=== PATIENT | female | born 1955 | race Caucasian/White ===

== ENCOUNTER 2016-05-25 15:29 | Emergency (ER) | payer MEDICARE, MEDICAID ==
--- NOTE | 2016-05-25 16:14 | UC ---
Back Pain HPI - HPI Summary HPI Summary: Lumbar back pain started 2 days ago; better with position and rest, worse with movement. Yesterday had trouble passing urine; felt like she had to go but couldn't until the evening, when she started passing small amounts of urine. Had seizure today and in the past seizures have been provoked by UTIs. No fever , flank pain, or vomiting. At worst back pain is a 7 while moving, but only 2-3 at rest. No muscle weakness or radiating pain. - History of Current Complaint Chief Complaint: UCGU Stated Complaint: LOW BACK PAIN Time Seen by Provider: 05/25/16 15:47 Hx Obtained From: Patient ?: No Onset/Duration: Gradual Onset, Lasting Days Timing: Constant Severity Initially: Moderate Severity Currently: Moderate Back Pain: Is Discrete @ Character: Dull, Aching Aggravating: Movement, Walking Alleviating: Rest, Position Associated Signs And Symptoms: Positive: Bladder Incontinence - urinary retention yesterday. Negative: Swelling, Redness, Weakness, Numbness, Tingling , Bowel Incontinence - Allergies/Home Medications Allergies/Adverse Reactions: Allergies Allergy/AdvReac Type Severity Reaction Status Date / Time No Known Allergies Allergy Verified 05/25/16 15:57 Home Medications: Home Medications ALPRAZolam TAB* [Xanax TAB*] 0.5 mg PO TID PRN 05/25/16 [History Confirmed 05/25] Acetaminophen [Extra Strength Acetaminop] 1,000 mg PO Q4H PRN 05/25/16 [History Confirmed 05/25/16] Aspirin [Aspirin Adult Low Dose] 81 mg PO BEDTIME 05/25/16 [History Confirmed ] Cyanocobalamin TAB* [Vitamin B12 TAB*] 500 mcg PO DAILY 05/25/16 [History Confirmed 05/25/16] Fluticasone HFA 220 mcg(NF) [Flovent Hfa 220 Mcg(NF)] 1 puff INH BID 05/25/16 [ History Confirmed 05/25/16] Furosemide TAB* [Lasix TAB*] 40 mg PO DAILY 05/25/16 [History Confirmed 05/25/16 ] Loratadine [Loratadine Allergy Relief] 10 mg PO DAILY 05/25/16 [History Confirmed 05/25/16] Losartan Potassium [Cozaar] 50 mg PO DAILY 05/25/16 [History Confirmed 05/25/16] Meloxicam [Mobic] 15 mg PO DAILY 05/25/16 [History Confirmed 05/25/16] OXcarbazepine TAB(*) [Trileptal TAB(*)] 300 mg PO BID 05/25/16 [History Confirmed 05/25/16] Pregabalin CAP(*) [Lyrica CAP(*)] 200 mg PO BID 05/25/16 [History Confirmed ] Propylene Glycol (Ophth) [Systane Balance Restorati] 0.6 % OP DAILY 05/25/16 [ History Confirmed 05/25/16] Risperidone [Risperdal] 0.5 mg PO BID 05/25/16 [History Confirmed 05/25/16] Saline NASAL SPRAY 0.65%* [Sodium Chloride 0.65% Nasal Enterprise*] 1 spray BOTH NARES Q4H PRN 05/25/16 [History Confirmed 05/25/16] clonazePAM TAB(*) [Klonopin TAB(*)] 0.5 mg PO BEDTIME PRN 05/25/16 [History Confirmed 05/25/16] PMH/Surg Hx/FS Hx/Imm Hx Cardiovascular History Of: Reports: Cardiac Disorders, Hypertension - Surgical History Surgical History: Yes Surgery Procedure, Year, and Place: VAGAL NERVE STIMULATOR--FOR EPILEPSY - Family History Known Family History: Positive: Hypertension - Social History Lives: Alone Alcohol Use: Rare Substance Use Type: None Smoking Status (MU): Never Smoked Tobacco Review of Systems Constitutional: Negative Skin: Negative Eyes: Negative ENT: Negative Respiratory: Negative Cardiovascular: Negative Gastrointestinal: Negative Genitourinary: Other - retention Motor: Negative Neurovascular: Negative Musculoskeletal: Arthralgia, Myalgia Neurological: Negative Psychological: Negative All Other Systems Reviewed And Are Negative: Yes Physical Exam Triage Information Reviewed: Yes Appearance: Well-Appearing, No Pain Distress, Obese Vital Signs: Initial Vital Signs Pulse 96 05/25/16 15:43 Resp 16 05/25/16 15:43 Pulse Ox 97 05/25/16 15:43 Vital Signs Reviewed: Yes Eyes: Positive: Conjunctiva Clear ENT Exam: Normal ENT: Positive: Normal ENT inspection, Hearing grossly normal, Pharynx normal, TMs normal Dental Exam: Normal Neck exam: Normal Neck: Positive: Supple, Nontender, No Lymphadenopathy Respiratory Exam: Normal Respiratory: Positive: Chest non-tender, Lungs clear, Normal breath sounds, No respiratory distress, No accessory muscle use Cardiovascular Exam: Normal Cardiovascular: Positive: RRR, No Murmur Abdomen Description: Positive: Nontender. Negative: CVA Tenderness (R), CVA Tenderness (L) Musculoskeletal Exam: Other - no tenderness over L-spine Musculoskeletal: Positive: Strength Intact, ROM Intact Neurological: Positive: Alert Psychological Exam: Normal Skin Exam: Normal Back Pain Course/Dx - Differential Dx/Diagnosis Provider Diagnoses: Low back pain. glycosuria. mild urinary retention Discharge - Discharge Plan Condition: Stable Disposition: HOME Prescriptions: Nitrofurantoin Monohyd Macro [Macrobid] 100 mg PO BID #10 cap Patient Education Materials: Urinary Tract Infection in Women (ED), Acute Urinary Retention in Women (ED) Referrals: Juan A RAMÍREZ,Giovany Enamorado [Primary Care Provider] - Additional Instructions: I am treating you for a UTI until we have the culture results. If you develop any new fever, trouble walking, or bowel/bladder changes (incontinence or inability to go), please go to the emergency department right away. I want you to continue to walk around and stay as active as possible. Use your meloxicam and tylenol as needed for discomfort; sometimes warmth can also help calm tight muscles. See your primary care provider next week.
[2016-05-25 16:20] VITALS: BP 118/66
== END 2016-05-25 16:39 | disposition home or self-care (01) ==
LOC: UCCORT 15:29
DX: M54.5 Low back pain (principal); R81 Glycosuria; R33.9 Retention of urine, unspecified; I10 Essential (primary) hypertension; E66.9 Obesity, unspecified; Z79.82 Long term (current) use of aspirin
CPT/HCPCS: 87086; 99202; G0463

== ENCOUNTER 2016-10-25 12:00 | Inpatient (IN) | payer MEDICARE, MEDICAID ==
[2016-10-25] MEDS ORDERED: LORazepam INJ* 2 MG/ML 1 ML VIAL IV PRN (16:21)
[2016-10-25] MEDS ORDERED: diPHENhydraMINE PO* 25 MG PO PRN (16:21)
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
[2016-10-25] MEDS ORDERED: Saline NASAL SPRAY 0.65%* BTL BOTH NARES PRN (18:57)
[2016-10-25] MEDS ORDERED: Acetaminophen TAB* 325 MG PO PRN (18:57)
[2016-10-25] MEDS: clonazePAM TAB(*) 0.5 MG PO SCH (20:35)
[2016-10-25] MEDS: Aspirin EC Low Dose* 81 MG TAB.EC PO SCH (20:35)
[2016-10-25] MEDS: OXcarbazepine TAB(*) 300 MG PO SCH (20:36)
[2016-10-25] MEDS ORDERED: Pregabalin CAP(*) 50 MG PO SCH (21:00)
[2016-10-25] MEDS: GLYCERIN BOTH EYES SCH (22:04)
[2016-10-25] MEDS: CARBOXYMETHYLCELLULOSE BOTH EYES SCH (22:04)
[2016-10-26] MEDS ORDERED: AZELASTINE HCL BOTH NARES SCH (09:00)
[2016-10-26] MEDS ORDERED: FISH OIL 1000 MG PO SCH (09:00)
[2016-10-26] MEDS ORDERED: Meloxicam(NF) 15 MG TAB PO SCH (09:00)
[2016-10-26] MEDS: CARBOXYMETHYLCELLULOSE BOTH EYES SCH (09:16)
[2016-10-26] MEDS: GLYCERIN BOTH EYES SCH (09:16)
[2016-10-26] MEDS: Cetirizine* 10 MG TAB PO SCH (09:17)
[2016-10-26] MEDS: Cholecalciferol TAB* 1000 UNITS PO SCH (09:18)
[2016-10-26] MEDS: Citalopram TAB* 20 MG PO SCH (09:20)
[2016-10-26] MEDS: clonazePAM TAB(*) 0.5 MG PO SCH ×3 (09:20→21:10)
[2016-10-26] MEDS: Cyanocobalamin TAB* 500 MCG PO SCH (09:21)
[2016-10-26] MEDS: Diltiazem CD CAP* 180 MG PO SCH (09:22)
[2016-10-26] MEDS: OXcarbazepine TAB(*) 300 MG PO SCH ×3 (09:23→21:09)
[2016-10-26] MEDS: Furosemide TAB* 40 MG PO SCH (09:23)
[2016-10-26] MEDS: Pregabalin CAP(*) 100 MG PO SCH ×2 (09:25→21:09)
[2016-10-26] MEDS: Losartan TAB* 25 MG PO SCH (09:25)
[2016-10-26] MEDS: Fluticasone NASAL SPRAY 50MCG* 16 gm SPRAY BTL BOTH NARES SCH (09:26)
--- NOTE | 2016-10-26 10:32 | EEG ---
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 She describes various intensities of auras/seizures, which always begin with an indescribable feeling that the seizure is coming. When these get stronger, she gets a fearful feeling that she cannot be alone and becomes "unmotivated", where she can't move or talk. She has had several admissions for long-term monitoring in [place] over the years. Initially, electroclinical seizures were demonstrated but over time she has continued to have clinical events without electrographic correlate ( most recently in 2013). She is now experiencing a few days per month of intense fear/anxiety which makes her want to avoid being alone and she has to stay with a family member during this time. She is doubling up on her clonazepam during these days from 0.5mg TID to 1mg TID, but still needs to stay with family. Long- term monitoring is being initiated to try and determine whether these episodes are epileptic in nature, and to try and reduce the amount of sedating medications she is taking. Introduction: INTRODUCTION: The EEG was monitored from 21 scalp electrodes. Nineteen electrodes consisted of the standard parasagittal, temporal and midline leads of the International 10 -20 system. In addition, special electrodes FT9 and FT10 were placed. EEG data were recorded on an [employer] system with simultaneous MPEG-4 digital video recording of patient behavior. EEG recording was in a monopolar montage with all electrodes referenced to FCz. Significant behavioral events were signaled by an event button, or putative electrical seizure events were detected by a computer program. All EEG data were reviewed in their entirety on a monitor with reconstruction of montages and adjustments of sensitivity and filtering. Simultaneous patient behavior was viewed on an adjacent monitor and correlated with the EEG. - Medications Active Medications: Acetaminophen (Tylenol Tab*) 975 mg PO Q4H PRN PRN Reason: DISCOMFORT Aspirin (Aspirin Ec Low Dose*) 81 mg PO BEDTIME ON LICENSE OF [facility] Last Admin: 10/25/16 20:35 Dose: 81 mg Cetirizine HCl (Zyrtec*) 10 mg PO DAILY ON LICENSE OF [facility] Last Admin: 10/26/16 09:17 Dose: 10 mg Cholecalciferol (Vitamin D Tab*) 2,000 units PO DAILY ON LICENSE OF [facility] Last Admin: 10/26/16 09:18 Dose: 2,000 units Citalopram Hydrobromide (Celexa Tab*) 20 mg PO DAILY ON LICENSE OF [facility] Last Admin: 10/26/16 09:20 Dose: 20 mg Clonazepam (Klonopin Tab(*)) 0.5 mg PO TID ON LICENSE OF [facility] Last Admin: 10/26/16 09:20 Dose: 0.5 mg Cyanocobalamin (Vitamin B12 Tab*) 500 mcg PO DAILY ON LICENSE OF [facility] Last Admin: 10/26/16 09:21 Dose: 500 mcg Diltiazem HCl (Cardizem Cd Cap*) 180 mg PO DAILY ON LICENSE OF [facility] Last Admin: 10/26/16 09:22 Dose: 180 mg Diphenhydramine HCl (Benadryl Po*) 25 mg PO Q6H PRN PRN Reason: ITCHING Enoxaparin Sodium (Lovenox(*)) 40 mg SUBCUT Q24H ON LICENSE OF [facility] Fluticasone Propionate (Flonase Nasal [place] 50mcg*) 1 spray BOTH NARES DAILY ON LICENSE OF [facility] Last Admin: 10/26/16 09:26 Dose: 1 spray Furosemide (Lasix Tab*) 40 mg PO DAILY ON LICENSE OF [facility] Last Admin: 10/26/16 09:23 Dose: 40 mg Lorazepam (Ativan Inj*) 1 mg IV Q8H PRN PRN Reason: Generalized Tonic Clonic Seizu Losartan Potassium (Cozaar Tab*) 50 mg PO DAILY ON LICENSE OF [facility] Last Admin: 10/26/16 09:25 Dose: 50 mg Meloxicam (Mobic(Nf)) 15 mg PO DAILY ON LICENSE OF [facility] Last Admin: 10/26/16 09:24 Dose: Not Given Pto Nf Med* ( Azelastine Hcl [ Azelastine Hcl] 2 [place]) 2 spray BOTH NARES DAILY ON LICENSE OF [facility] Last Admin: 10/26/16 09:17 Dose: 2 spray Pto Nf Med ( Carboxymethylcellulo se-Glyceri [Refresh Optive 0.5-0.9 %] 1 Drop) 1 drop BOTH EYES BID ON LICENSE OF [facility] Last Admin: 10/26/16 09:16 Dose: 1 drop Non-Formulary Medication (Fish Oil) 1,000 mg PO DAILY ON LICENSE OF [facility] Oxcarbazepine (Trileptal Tab(*)) 300 mg PO BID ON LICENSE OF [facility] Last Admin: 10/26/16 09:23 Dose: 300 mg Oxcarbazepine (Trileptal Tab(*)) 150 mg PO 1500 [facility] Pregabalin (Lyrica Cap(*)) 100 mg PO BID ON LICENSE OF [facility] Last Admin: 10/26/16 09:25 Dose: 100 mg Risperidone (Risperdal) 0.5 mg PO BID ON LICENSE OF [facility] Last Admin: 10/26/16 09:24 Dose: 0.5 mg Sodium Chloride (Sodium Chloride 0.65% Nasal [place]*) 1 spray BOTH NARES Q4H PRN PRN Reason: DISCOMFORT - Description Background: The waking background showed appropriate organization with clearly defined anterior-posterior voltage and frequency gradients. There was a defined posterior dominant rhythm of 8 Hertz, which was symmetrical and showed normal reactivity. Anteriorly, there was the expected pattern of lower voltage and more irregular theta and beta rhythms. There is occasional, polymorphic, delta-range slowing in the left parietal region, affecting P3 and C3 primarily. This is noted in the waking background and lasts less than 0.5 seconds. By day #3 of recording, there were periods of higher voltage, 1 to 2 Hz intermittent rhythmic activity in the frontal region ( FIRDA) which lasted 2 to 3 seconds per epoch. There were also periods of more focal slowing in the bilateral temporal regions, which was sometimes noted independently and was most likely to occur during drowsiness. On day #4 of recording, she had more frequent periods of delta slowing which were sometimes seen diffusely. The sleep background was appropriately organized with well-developed spindles and vertex waves indicative of stage 2 sleep. These sleep transients showed appropriate morphology and were bilaterally synchronous and symmetrical. Development of diffuse delta range frequencies with dropout of stage 2 architecture accompanied transition to slow wave sleep, and a lower voltage mixed frequency pattern associated with eye movements was consistent with REM sleep. Intericatal Epileptiform Activity: #01 6/16: When the patient falls asleep, occasional epileptiform discharges are seen in the left temporal region. These are generally of moderate voltage and spike/slow-wave morphology and are maximally expressed at F7 and T1/FT9, with a field to T3/T7. At times, these discharges are poorly formed and have more of a sharp wave morphology. #02 6/: Discharges during sleep as described above continue to be seen. #03 10/27: A single sharp waveform was seen in the right temporal region during sleep but this occurred in the context of probable wickets in the left temporal region and was most likely a benign sleep transient. #04 10/28: Epileptiform discharges in the left temporal region continue to be seen during drowsiness and sleep. Ictal Activity: #01 10/25: The patient experienced 3 events during this portion of the monitoring session. All were "hardly noticeable" seizures/auras and were over within a second or two, before staff could be at the bedside. She was fully alert, able to follow commands and remember a recall phrase. She had the typical indescribable feeling. There was no EEG correlate to these events. There were no seizures noted. #02 10/26: No typical events. No seizures. #03 10/27: No typical events. No seizures. Photic induction was performed and was negative. There was no abnormal EEG response to photic stimulation #04 10/28: The patient had a typical event at 03:53 on 10/29, lasting 5 to 10 seconds, of a feeling of not wanting to be alone. She indicated to the nurse this was a "bad seizure". She was able to follow commands and remember a recall phrase. There was no apparent post-ictal confusion. There was no EEG correlate to this event. No ictal patterns noted.
[2016-10-26] MEDS ORDERED: CMC:OMEGA-3 FATTY ACIDS (NF) 1,000 MG CAP PO SCH (12:00)
[2016-10-26] MEDS ORDERED: CMC:Meloxicam(NF) 7.5 MG TAB PO SCH (12:00)
--- NOTE | 2016-10-26 12:27 | PN ---
Epilepsy Service Progress Note - Subjective DOS 10/26/16 Dawna had 3 "hardly noticeable" auras yesterday, with the last being around 6: 40pm. She has not had any further events. This morning, she received a lower dose of Lyrica (100mg). She has no other concerns - Medications Active Medications: Acetaminophen (Tylenol Tab*) 975 mg PO Q4H PRN PRN Reason: DISCOMFORT Aspirin (Aspirin Ec Low Dose*) 81 mg PO BEDTIME [facility] Last Admin: 10/25/16 20:35 Dose: 81 mg Cetirizine HCl (Zyrtec*) 10 mg PO DAILY [facility] Last Admin: 10/26/16 09:17 Dose: 10 mg Cholecalciferol (Vitamin D Tab*) 2,000 units PO DAILY [facility] Last Admin: 10/26/16 09:18 Dose: 2,000 units Citalopram Hydrobromide (Celexa Tab*) 20 mg PO DAILY [facility] Last Admin: 10/26/16 09:20 Dose: 20 mg Clonazepam (Klonopin Tab(*)) 0.5 mg PO TID [facility] Last Admin: 10/26/16 09:20 Dose: 0.5 mg Cyanocobalamin (Vitamin B12 Tab*) 500 mcg PO DAILY [facility] Last Admin: 10/26/16 09:21 Dose: 500 mcg Diltiazem HCl (Cardizem Cd Cap*) 180 mg PO DAILY [facility] Last Admin: 10/26/16 09:22 Dose: 180 mg Diphenhydramine HCl (Benadryl Po*) 25 mg PO Q6H PRN PRN Reason: ITCHING Enoxaparin Sodium (Lovenox(*)) 40 mg SUBCUT Q24H [facility] Fish Oil (Fish Oil (Nf)) 1,000 mg PO DAILY [facility] Fluticasone Propionate (Flonase Nasal [place] 50mcg*) 1 spray BOTH NARES DAILY [facility] Last Admin: 10/26/16 09:26 Dose: 1 spray Furosemide (Lasix Tab*) 40 mg PO DAILY [facility] Last Admin: 10/26/16 09:23 Dose: 40 mg Lorazepam (Ativan Inj*) 1 mg IV Q8H PRN PRN Reason: Generalized Tonic Clonic Seizu Losartan Potassium (Cozaar Tab*) 50 mg PO DAILY [facility] Last Admin: 10/26/16 09:25 Dose: 50 mg Meloxicam (Mobic(Nf)) 15 mg PO DAILY [facility] Pto Nf Med* ( Azelastine Hcl [ Azelastine Hcl] 2 [place]) 2 spray BOTH NARES DAILY [facility] Last Admin: 10/26/16 09:17 Dose: 2 spray Pto Nf Med ( Carboxymethylcellulo se-Glyceri [Refresh Optive 0.5-0.9 %] 1 Drop) 1 drop BOTH EYES BID [facility] Last Admin: 10/26/16 09:16 Dose: 1 drop Oxcarbazepine (Trileptal Tab(*)) 300 mg PO BID [facility] Last Admin: 10/26/16 09:23 Dose: 300 mg Oxcarbazepine (Trileptal Tab(*)) 150 mg PO 1500 [facility] Pregabalin (Lyrica Cap(*)) 100 mg PO BID [facility] Last Admin: 10/26/16 09:25 Dose: 100 mg Risperidone (Risperdal) 0.5 mg PO BID [facility] Last Admin: 10/26/16 09:24 Dose: 0.5 mg Sodium Chloride (Sodium Chloride 0.65% Nasal [place]*) 1 spray BOTH NARES Q4H PRN PRN Reason: DISCOMFORT EMU Diagnostics - Diagnostic Most Recent Vital Signs: Vital Signs: Temp Pulse Resp BP Pulse Ox 98.5 F 84 16 137/70 95 10/25/16 21:47 10/25/16 21:47 10/26/16 08:32 10/25/16 21:47 10/25/16 21:47 Interim video-EEG long-term monitoring report: #01 10/25: PDR 8, normal sleep background. During sleep, there are epileptiform discharges in the left temporal region. She had 3 events of a light undescribable feeling which had no EEG correlate. EMU Exam - Exam Physical/Neurological Exam: Physical Exam: General: Well appearing in no acute distress. Morbidly obese Eyes: normal conjunctiva, pupils were equal and reactive. MSK: no extremity deformities Derm: no rashes or lesions Neurological Exam: Mental Status: Awake and alert. Oriented to person, place, and time. Fluent. Comprehension intact. Affect appropriate. Cranial Nerves: Versions were full and without nystagmus. Facial musculature and sensation were symmetric except for slight left ptosis. Hearing grossly intact to voice. Palate was upgoing bilaterally. Tongue was midline. Shoulder shrug was symmetric. Motor: Bul, and strength were normal throughout. Pronator drift was absent. There were no abnormal movements. Sensory: Sensation to light touch intact. Romberg was deferred. Gait: Normal base, steady when ambulating from BR to bed. EMU Progress Note Assessment/P - Assessment/Plan Assessment: 61 year old woman with localization-related epilepsy secondary to left mesial temporal sclerosis, treated with pregabalin, oxcarbazepine and clonazepam, presenting for characterization of episodes of intense fear where she feels she cannot be alone. She has been temporarily doubling her clonazepam during these episodes. Though her seizures have not changed in their description over the years, she previously had an electrographic correlate to episodes where she could not speak, whereas with more recent monitoring in [place], she did not. In addition, she is tired frequently. The current monitoring session is undertaken in order to characterize events and attempt to get the patient on less medication, with hopefully good seizure control and less sleepiness. Three typical "hardly noticeable" events recorded thus far, without EEG correlate. No stronger events recorded yet. I told Dawna she does not need to press the button for hardly noticeable events any longer, only stronger ones. Plan: * Continue extermination supervisor video EEG monitoring to capture typical episodes * Seizure precautions * lorazepam 1mg IV prn GTC * continue oxcarbazepine 300/150/300mg, clonazepam 0.5mg TID and Lyrica 100mg BID. Tomorrow, will likely decrease Lyrica to 75mg BID. * Lovenox daily for DVT ppx * continue other home meds * will consider holding allergy medications/nasal sprays on Friday if no stronger events captured * will also consider photic stimulation on Friday if no stronger events captured before then.
[2016-10-26] MEDS: PTO:OMEGA-3 FATTY ACIDS (NF) 1,000 MG CAP PO SCH (15:01)
[2016-10-26] MEDS: Meloxicam(NF) 15 MG TAB PO SCH (15:01)
[2016-10-26] MEDS: Enoxaparin(*) 40 MG/0.4 ML SYR SUBCUT SCH ×2 (15:06→21:35)
[2016-10-26] MEDS: Aspirin EC Low Dose* 81 MG TAB.EC PO SCH (21:09)
[2016-10-26] MEDS: CARBOXYMETHYLCELLULOSE GLYCERI BOTH EYES SCH (21:12)
[2016-10-27] MEDS: Cetirizine* 10 MG TAB PO SCH (08:55)
[2016-10-27] MEDS: CARBOXYMETHYLCELLULOSE GLYCERI BOTH EYES SCH ×2 (08:55→21:28)
[2016-10-27] MEDS: Cholecalciferol TAB* 1000 UNITS PO SCH (08:56)
[2016-10-27] MEDS: Citalopram TAB* 20 MG PO SCH (08:56)
[2016-10-27] MEDS: clonazePAM TAB(*) 0.5 MG PO SCH ×3 (08:56→21:28)
[2016-10-27] MEDS: Cyanocobalamin TAB* 500 MCG PO SCH (08:57)
[2016-10-27] MEDS: Furosemide TAB* 40 MG PO SCH (08:58)
[2016-10-27] MEDS: Fluticasone NASAL SPRAY 50MCG* 16 gm SPRAY BTL BOTH NARES SCH (08:58)
[2016-10-27] MEDS: Losartan TAB* 25 MG PO SCH (08:58)
[2016-10-27] MEDS: Meloxicam(NF) 15 MG TAB PO SCH (08:59)
[2016-10-27] MEDS: PTO:OMEGA-3 FATTY ACIDS (NF) 1,000 MG CAP PO SCH (08:59)
[2016-10-27] MEDS ORDERED: AZELASTINE HCL BOTH NARES SCH (09:00)
[2016-10-27] MEDS: Pregabalin CAP(*) 100 MG PO SCH (09:01)
[2016-10-27] MEDS: OXcarbazepine TAB(*) 300 MG PO SCH ×3 (09:01→21:28)
[2016-10-27] MEDS: Diltiazem CD CAP* 180 MG PO SCH (09:06)
--- NOTE | 2016-10-27 10:24 | PN ---
Epilepsy Service Progress Note - Subjective DOS 10/27/16 Dawna had one hardly noticeable aura yesterday, nothing stronger. She is doing well without complaints. She would like to stop her nasal sprays now as she finds her sinuses getting backed up bring on stronger events. - Medications Active Medications: Acetaminophen (Tylenol Tab*) 975 mg PO Q4H PRN PRN Reason: DISCOMFORT Aspirin (Aspirin Ec Low Dose*) 81 mg PO BEDTIME [facility] Last Admin: 10/26/16 21:09 Dose: 81 mg Azelastine HCl (Astepro 0.15% Nasal (Nf)) 2 spray BOTH NARES DAILY [facility] Last Admin: 10/27/16 08:54 Dose: 2 spray Carboxymethylcellulose Sodium (Celluvisc 1% Opth*) 1 drop BOTH EYES BID [facility] Last Admin: 10/27/16 08:55 Dose: 1 everardo Cetirizine HCl (Zyrtec*) 10 mg PO DAILY [facility] Last Admin: 10/27/16 08:55 Dose: 10 mg Cholecalciferol (Vitamin D Tab*) 2,000 units PO DAILY [facility] Last Admin: 10/27/16 08:56 Dose: 2,000 units Citalopram Hydrobromide (Celexa Tab*) 20 mg PO DAILY [facility] Last Admin: 10/27/16 08:56 Dose: 20 mg Clonazepam (Klonopin Tab(*)) 0.5 mg PO TID [facility] Last Admin: 10/27/16 08:56 Dose: 0.5 mg Cyanocobalamin (Vitamin B12 Tab*) 500 mcg PO DAILY [facility] Last Admin: 10/27/16 08:57 Dose: 500 mcg Diltiazem HCl (Cardizem Cd Cap*) 180 mg PO DAILY [facility] Last Admin: 10/27/16 09:06 Dose: 180 mg Diphenhydramine HCl (Benadryl Po*) 25 mg PO Q6H PRN PRN Reason: ITCHING Enoxaparin Sodium (Lovenox(*)) 40 mg SUBCUT Q24H [facility] Last Admin: 10/26/16 21:35 Dose: Not Given Fish Oil (Fish Oil (Nf)) 1,000 mg PO DAILY [facility] Last Admin: 10/27/16 08:59 Dose: 1,000 mg Fluticasone Propionate (Flonase Nasal [place] 50mcg*) 1 spray BOTH NARES DAILY [facility] Last Admin: 10/27/16 08:58 Dose: 1 spray Furosemide (Lasix Tab*) 40 mg PO DAILY [facility] Last Admin: 10/27/16 08:58 Dose: 40 mg Lorazepam (Ativan Inj*) 1 mg IV Q8H PRN PRN Reason: Generalized Tonic Clonic Seizu Losartan Potassium (Cozaar Tab*) 50 mg PO DAILY [facility] Last Admin: 10/27/16 08:58 Dose: 50 mg Meloxicam (Mobic(Nf)) 15 mg PO DAILY [facility] Last Admin: 10/27/16 08:59 Dose: 15 mg Oxcarbazepine (Trileptal Tab(*)) 300 mg PO BID [facility] Last Admin: 10/27/16 09:01 Dose: 300 mg Oxcarbazepine (Trileptal Tab(*)) 150 mg PO 1500 [facility] Last Admin: 10/26/16 15:02 Dose: 150 mg Pregabalin (Lyrica Cap(*)) 100 mg PO BID [facility] Last Admin: 10/27/16 09:01 Dose: 100 mg Risperidone (Risperdal) 0.5 mg PO BID [facility] Last Admin: 10/27/16 09:01 Dose: 0.5 mg Sodium Chloride (Sodium Chloride 0.65% Nasal [place]*) 1 spray BOTH NARES Q4H PRN PRN Reason: DISCOMFORT EMU Diagnostics - Diagnostic Most Recent Vital Signs: Vital Signs: Temp Pulse Resp BP Pulse Ox 98.0 F 77 18 128/72 95 10/27/16 07:45 10/27/16 07:45 10/27/16 07:45 10/27/16 07:45 10/27/16 07:45 Interim video-EEG long-term monitoring report: #01 10/25: PDR 8, normal sleep background. During sleep, there are epileptiform discharges in the left temporal region. She had 3 events of a light undescribable feeling which had no EEG correlate. #02 10/26: background as above with occasional discharges in the left temporal region during sleep. No new patient events, no seizures. EMU Exam - Exam Physical/Neurological Exam: Physical Exam: General: Well appearing in no acute distress. Morbidly obese Eyes: normal conjunctiva, pupils were equal and reactive. MSK: no extremity deformities Derm: no rashes or lesions Neurological Exam: Mental Status: Awake and alert. Oriented to person, place, and time. Fluent. Comprehension intact. Affect appropriate. Cranial Nerves: Versions were full and without nystagmus. Facial musculature and sensation were symmetric except for slight left ptosis. Hearing grossly intact to voice. Palate was upgoing bilaterally. Tongue was midline. Shoulder shrug was symmetric. Motor: Bulk and strength were normal throughout. Pronator drift was absent. There is a mild postural tremor of the left hand. Sensory: Sensation to light touch intact. Romberg was deferred. Coordination: FTN with end-target tremor on the left but no ataxia. Gait: deferred EMU Progress Note Assessment/P - Assessment/Plan Assessment: 61 year old woman with localization-related epilepsy secondary to left mesial temporal sclerosis, treated with pregabalin, oxcarbazepine and clonazepam, presenting for characterization of episodes of intense fear where she feels she cannot be alone. She has been temporarily doubling her clonazepam during these episodes. Though her seizures have not changed in their description over the years, she previously had an electrographic correlate to episodes where she could not speak, whereas with more recent monitoring in [place], she did not. In addition, she is tired frequently. The current monitoring session is undertaken in order to characterize events and attempt to get the patient on less medication, with hopefully good seizure control and less sleepiness. Three typical "hardly noticeable" events recorded thus far, without EEG correlate. No stronger events recorded yet. I told Dawna she does not need to press the button for hardly noticeable events any longer, only stronger ones. Plan: * Continue halfway video EEG monitoring to capture typical episodes * Seizure precautions * lorazepam 1mg IV prn GTC * continue oxcarbazepine 300/150/300mg, clonazepam 0.5mg TID. Decrease Lyrica to 75mg BID. * Lovenox daily for DVT ppx * Stop Flonase and azelastine. Continue loratadine. * continue other home meds * will consider photic stimulation on Friday if no stronger events captured before then.
[2016-10-27] MEDS: Enoxaparin(*) 40 MG/0.4 ML SYR SUBCUT SCH (15:42)
[2016-10-27] MEDS: Pregabalin CAP(*) 25 MG PO SCH (21:27)
[2016-10-27] MEDS: Aspirin EC Low Dose* 81 MG TAB.EC PO SCH (21:28)
[2016-10-27] MEDS: risperiDONE TAB* 1 MG PO SCH (21:35)
[2016-10-28] MEDS: CARBOXYMETHYLCELLULOSE GLYCERI BOTH EYES SCH ×2 (09:21→20:47)
[2016-10-28] MEDS: PTO:OMEGA-3 FATTY ACIDS (NF) 1,000 MG CAP PO SCH (09:22)
[2016-10-28] MEDS: Meloxicam(NF) 15 MG TAB PO SCH (09:23)
[2016-10-28] MEDS: Cetirizine* 10 MG TAB PO SCH (09:23)
[2016-10-28] MEDS: Citalopram TAB* 20 MG PO SCH (09:24)
[2016-10-28] MEDS: clonazePAM TAB(*) 0.5 MG PO SCH ×3 (09:24→20:53)
[2016-10-28] MEDS: Furosemide TAB* 40 MG PO SCH (09:24)
[2016-10-28] MEDS: Diltiazem CD CAP* 180 MG PO SCH (09:24)
[2016-10-28] MEDS: Cyanocobalamin TAB* 500 MCG PO SCH (09:25)
[2016-10-28] MEDS: Cholecalciferol TAB* 1000 UNITS PO SCH (09:26)
[2016-10-28] MEDS: Pregabalin CAP(*) 25 MG PO SCH ×2 (09:27→20:50)
[2016-10-28] MEDS: Losartan TAB* 25 MG PO SCH (09:27)
[2016-10-28] MEDS: risperiDONE TAB* 1 MG PO SCH ×2 (09:43→20:49)
[2016-10-28] MEDS: OXcarbazepine TAB(*) 300 MG PO SCH ×3 (09:44→20:50)
--- NOTE | 2016-10-28 11:39 | PN ---
Epilepsy Service Progress Note - Subjective DOS 10/28/16 Dawna has no complaints. She had a bowel movement last night but it was diarrhea. Nursing notified me of weight gain since admission. Pt denies SOB, chest pain. She has LE edema. She typically does not have constipation. No bigger seizures yet. - Medications Active Medications: Acetaminophen (Tylenol Tab*) 975 mg PO Q4H PRN PRN Reason: DISCOMFORT Aspirin (Aspirin Ec Low Dose*) 81 mg PO BEDTIME [facility] Last Admin: 10/27/16 21:28 Dose: 81 mg Carboxymethylcellulose Sodium (Celluvisc 1% Opth*) 1 drop BOTH EYES BID [facility] Last Admin: 10/28/16 09:21 Dose: 1 everardo Cetirizine HCl (Zyrtec*) 10 mg PO DAILY [facility] Last Admin: 10/28/16 09:23 Dose: 10 mg Cholecalciferol (Vitamin D Tab*) 2,000 units PO DAILY [facility] Last Admin: 10/28/16 09:26 Dose: 2,000 units Citalopram Hydrobromide (Celexa Tab*) 20 mg PO DAILY [facility] Last Admin: 10/28/16 09:24 Dose: 20 mg Clonazepam (Klonopin Tab(*)) 0.5 mg PO TID [facility] Last Admin: 10/28/16 09:24 Dose: 0.5 mg Cyanocobalamin (Vitamin B12 Tab*) 500 mcg PO DAILY [facility] Last Admin: 10/28/16 09:25 Dose: 500 mcg Diltiazem HCl (Cardizem Cd Cap*) 180 mg PO DAILY [facility] Last Admin: 10/28/16 09:24 Dose: 180 mg Diphenhydramine HCl (Benadryl Po*) 25 mg PO Q6H PRN PRN Reason: ITCHING Enoxaparin Sodium (Lovenox(*)) 40 mg SUBCUT Q24H [facility] Last Admin: 10/27/16 15:42 Dose: 40 mg Fish Oil (Fish Oil (Nf)) 1,000 mg PO DAILY [facility] Last Admin: 10/28/16 09:22 Dose: 1,000 mg Furosemide (Lasix Tab*) 40 mg PO DAILY [facility] Last Admin: 10/28/16 09:24 Dose: 40 mg Lorazepam (Ativan Inj*) 1 mg IV Q8H PRN PRN Reason: Generalized Tonic Clonic Seizu Losartan Potassium (Cozaar Tab*) 50 mg PO DAILY [facility] Last Admin: 10/28/16 09:27 Dose: 50 mg Meloxicam (Mobic(Nf)) 15 mg PO DAILY [facility] Last Admin: 10/28/16 09:23 Dose: 15 mg Oxcarbazepine (Trileptal Tab(*)) 300 mg PO BID [facility] Last Admin: 10/28/16 09:44 Dose: 300 mg Oxcarbazepine (Trileptal Tab(*)) 150 mg PO 1500 [facility] Last Admin: 10/27/16 15:42 Dose: 150 mg Pregabalin (Lyrica Cap(*)) 75 mg PO BID [facility] Last Admin: 10/28/16 09:27 Dose: 75 mg Risperidone (Risperdal*) 0.5 mg PO BID [facility] Last Admin: 10/28/16 09:43 Dose: 0.5 mg Sodium Chloride (Sodium Chloride 0.65% Nasal [place]*) 1 spray BOTH NARES Q4H PRN PRN Reason: DISCOMFORT EMU Diagnostics - Diagnostic Most Recent Vital Signs: Vital Signs: Temp Pulse Resp BP Pulse Ox 98.2 F 93 18 149/65 96 10/28/16 06:55 10/28/16 06:55 10/28/16 08:00 10/28/16 06:55 10/28/16 06:55 Interim video-EEG long-term monitoring report: #01 /: PDR 8, normal sleep background. During sleep, there are epileptiform discharges in the left temporal region. She had 3 events of a light undescribable feeling which had no EEG correlate. #02 10/26: background as above with occasional discharges in the left temporal region during sleep. No new patient events, no seizures. #03 /: background as above except that one right temporal sharp wave, possible discharge, was seen. No patient events, no seizures. EMU Exam - Exam Physical/Neurological Exam: Physical Exam: General: Well appearing in no acute distress. Morbidly obese Eyes: normal conjunctiva, pupils were equal and reactive. MSK: no extremity deformities Derm: no rashes or lesions Neurological Exam: Mental Status: Awake and alert. Oriented to person, place, and time. Fluent. Comprehension intact. Affect appropriate. Cranial Nerves: Versions were full and without nystagmus. Facial musculature and sensation were symmetric except for slight left ptosis. Hearing grossly intact to voice. Palate was upgoing bilaterally. Tongue was midline. Shoulder shrug was symmetric. Motor: Bulk and strength were normal throughout. Pronator drift was absent. There is a mild postural tremor of the left hand. Sensory: Sensation to light touch intact. Romberg was deferred. Coordination: FTN with end-target tremor on the left but no ataxia. 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 She has been temporarily doubling her clonazepam during these episodes. Though her seizures have not changed in their description over the years, she previously had an electrographic correlate to episodes where she could not speak, whereas with more recent monitoring in [place], she did not. In addition, she is tired frequently. The current monitoring session is undertaken in order to characterize events and attempt to get the patient on less medication, with hopefully good seizure control and less sleepiness. Three typical "hardly noticeable" events recorded thus far, without EEG correlate. No stronger events recorded yet. I told Dawna she does not need to press the button for hardly noticeable events any longer, only stronger ones. Plan: * Continue [facility] video EEG monitoring to capture typical episodes * Seizure precautions * lorazepam 1mg IV prn GTC * continue oxcarbazepine 300/150/300mg, clonazepam 0.5mg TID, Lyrica to 75mg BID. * Lovenox daily for DVT ppx * Hold Flonase and azelastine. Continue loratadine. * continue other home meds * will perform photic stimulation today
[2016-10-28] MEDS: Enoxaparin(*) 40 MG/0.4 ML SYR SUBCUT SCH (15:10)
[2016-10-28] MEDS: Aspirin EC Low Dose* 81 MG TAB.EC PO SCH (20:50)
[2016-10-29] MEDS: CARBOXYMETHYLCELLULOSE GLYCERI BOTH EYES SCH ×2 (09:00→20:54)
[2016-10-29] MEDS: Cholecalciferol TAB* 1000 UNITS PO SCH (09:00)
[2016-10-29] MEDS: Cetirizine* 10 MG TAB PO SCH (09:00)
[2016-10-29] MEDS: Diltiazem CD CAP* 180 MG PO SCH (09:05)
[2016-10-29] MEDS: Cyanocobalamin TAB* 500 MCG PO SCH (09:05)
[2016-10-29] MEDS: clonazePAM TAB(*) 0.5 MG PO SCH ×3 (09:05→20:44)
[2016-10-29] MEDS: Furosemide TAB* 40 MG PO SCH (09:05)
[2016-10-29] MEDS: Citalopram TAB* 20 MG PO SCH (09:05)
[2016-10-29] MEDS: Meloxicam(NF) 15 MG TAB PO SCH (09:10)
[2016-10-29] MEDS: Losartan TAB* 25 MG PO SCH (09:10)
[2016-10-29] MEDS: Pregabalin CAP(*) 25 MG PO SCH ×2 (09:12→20:51)
[2016-10-29] MEDS: OXcarbazepine TAB(*) 300 MG PO SCH ×3 (09:12→20:52)
[2016-10-29] MEDS: PTO:OMEGA-3 FATTY ACIDS (NF) 1,000 MG CAP PO SCH (09:12)
[2016-10-29] MEDS: risperiDONE TAB* 1 MG PO SCH ×2 (09:15→20:45)
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
[2016-10-29] MEDS ORDERED: Artificial Tears* 15 ML BTL BOTH EYES PRN (11:43)
[2016-10-29] MEDS: Enoxaparin(*) 40 MG/0.4 ML SYR SUBCUT SCH (15:00)
[2016-10-29] MEDS: Aspirin EC Low Dose* 81 MG TAB.EC PO SCH (20:44)
[2016-10-30] MEDS: CARBOXYMETHYLCELLULOSE GLYCERI BOTH EYES SCH ×2 (08:51→23:41)
[2016-10-30] MEDS: Losartan TAB* 25 MG PO SCH (08:54)
[2016-10-30] MEDS: Cetirizine* 10 MG TAB PO SCH (08:57)
[2016-10-30] MEDS: Cholecalciferol TAB* 1000 UNITS PO SCH (08:58)
[2016-10-30] MEDS: Citalopram TAB* 20 MG PO SCH (08:58)
[2016-10-30] MEDS: clonazePAM TAB(*) 0.5 MG PO SCH ×3 (08:59→23:42)
[2016-10-30] MEDS: Cyanocobalamin TAB* 500 MCG PO SCH (08:59)
[2016-10-30] MEDS: Diltiazem CD CAP* 180 MG PO SCH (09:04)
[2016-10-30] MEDS: Furosemide TAB* 40 MG PO SCH (09:05)
[2016-10-30] MEDS: PTO:OMEGA-3 FATTY ACIDS (NF) 1,000 MG CAP PO SCH (09:06)
[2016-10-30] MEDS: Meloxicam(NF) 15 MG TAB PO SCH (09:06)
[2016-10-30] MEDS: Pregabalin CAP(*) 25 MG PO SCH (09:07)
[2016-10-30] MEDS: risperiDONE TAB* 1 MG PO SCH ×2 (09:08→23:40)
[2016-10-30] MEDS: OXcarbazepine TAB(*) 300 MG PO SCH ×3 (09:25→23:41)
[2016-10-30] MEDS ORDERED: clonazePAM TAB(*) 0.5 MG PO ONE (10:40)
--- NOTE | 2016-10-30 11:38 | PN ---
Epilepsy Service Progress Note - Ermias Toney had multiple medium and bad seizures overnight. With the event that occurred just before 1am, there was a definite 4-5 Hz ictal pattern noted in the left temporal lobe. With some of the subsequent events, there seems to be an attenuation during the initial portion of the event most prominent over the left hemisphere, but no other definite ictal patterns were observed. We discussed whether surgery had ever been discussed as an option. She and her sister think it had been discussed by Dr. Metzger, possibly in 2014. She had been interested, but she thinks he then discouraged it for some reason, but can't remember why. She feels the seizures disrupt her QOL because she would sometimes like to be around people more but the seizures prevent her from doing that. We talked about the presurgical work up process. - Medications Active Medications: Acetaminophen (Tylenol Tab*) 975 mg PO Q4H PRN PRN Reason: DISCOMFORT Aspirin (Aspirin Ec Low Dose*) 81 mg PO BEDTIME [facility] Last Admin: 10/29/16 20:44 Dose: 81 mg Carboxymethylcellulose Sodium (Celluvisc 1% Opth*) 1 drop BOTH EYES BID [facility] Last Admin: 10/30/16 08:51 Dose: 1 everardo Cetirizine HCl (Zyrtec*) 10 mg PO DAILY [facility] Last Admin: 10/30/16 08:57 Dose: 10 mg Cholecalciferol (Vitamin D Tab*) 2,000 units PO DAILY [facility] Last Admin: 10/30/16 08:58 Dose: 2,000 units Citalopram Hydrobromide (Celexa Tab*) 20 mg PO DAILY [facility] Last Admin: 10/30/16 08:58 Dose: 20 mg Clonazepam (Klonopin Tab(*)) 1 mg PO TID [facility] Cyanocobalamin (Vitamin B12 Tab*) 500 mcg PO DAILY [facility] Last Admin: 10/30/16 08:59 Dose: 500 mcg Diltiazem HCl (Cardizem Cd Cap*) 180 mg PO DAILY [facility] Last Admin: 10/30/16 09:04 Dose: 180 mg Diphenhydramine HCl (Benadryl Po*) 25 mg PO Q6H PRN PRN Reason: ITCHING Enoxaparin Sodium (Lovenox(*)) 40 mg SUBCUT Q24H [facility] Last Admin: 10/29/16 15:00 Dose: 40 mg Fish Oil (Fish Oil (Nf)) 1,000 mg PO DAILY [facility] Last Admin: 10/30/16 09:06 Dose: 1,000 mg Furosemide (Lasix Tab*) 40 mg PO DAILY [facility] Last Admin: 10/30/16 09:05 Dose: 40 mg Lorazepam (Ativan Inj*) 1 mg IV Q8H PRN PRN Reason: Generalized Tonic Clonic Seizu Losartan Potassium (Cozaar Tab*) 50 mg PO DAILY [facility] Last Admin: 10/30/16 08:54 Dose: 50 mg Meloxicam (Mobic(Nf)) 15 mg PO DAILY [facility] Last Admin: 10/30/16 09:06 Dose: 15 mg Oxcarbazepine (Trileptal Tab(*)) 300 mg PO BID [facility] Last Admin: 10/30/16 09:25 Dose: 300 mg Oxcarbazepine (Trileptal Tab(*)) 150 mg PO 1500 [facility] Last Admin: 10/29/16 14:57 Dose: 150 mg Polyvinyl Alcohol (Polyvinyl Alcohol 1.4% Opth*) 1 drop BOTH EYES Q2H PRN PRN Reason: DRY EYE Pregabalin (Lyrica Cap(*)) 75 mg PO BID [facility] Last Admin: 10/30/16 09:07 Dose: 75 mg Risperidone (Risperdal*) 0.5 mg PO BID [facility] Last Admin: 10/30/16 09:08 Dose: 0.5 mg Sodium Chloride (Sodium Chloride 0.65% Nasal [place]*) 1 spray BOTH NARES Q4H PRN PRN Reason: DISCOMFORT EMU Diagnostics - Diagnostic Most Recent Vital Signs: Vital Signs: Temp Pulse Resp BP Pulse Ox 98.7 F 86 18 141/69 95 10/30/16 08:00 10/30/16 08:00 10/30/16 08:00 10/30/16 08:00 10/30/16 08:00 Lab Results: Laboratory Tests 10/29/16 04:06 POC Glucose (mg/dL) 135 H Outpt labs from 07/02/16 show Na 129, oxcarbazepine 19 (3-35), pregabalin 1.1 (2- 5) Interim video-EEG long-term monitoring report: #01 10/25: PDR 8, normal sleep background. During sleep, there are epileptiform discharges in the left temporal region. She had 3 events of a light undescribable feeling which had no EEG correlate. #02 10/26: background as above with occasional discharges in the left temporal region during sleep. No new patient events, no seizures. #03 10/27: background as above except that one right temporal sharp wave, probable benign sleep transient, was seen. No patient events, no seizures. #04 10/28: There is a greater proportion of intermittent delta slowing intermixed within the waking/drowsy backgrounds. At times, this is frontally predominant while at other times it is diffuse. Otherwise, discharges in the left temporal region continue to be seen during drowsiness and sleep, on occasion. She had an event at 03:53 that was not associated with any EEG change. #05 10/29: Patient had multiple events which are further detailed in the LTM report. Many had no obvious EEG signature. She either described "medium" or "bad " seizures. With an event around 0100 on 10/30, there was a rhythmic 4-5 Hz pattern noted in the left temporal region, maximal at F7 and T3/T7. With some of the subsequent events (but not all), there seemed to be voltage attenuation over the left hemisphere at the beginning of the event, sometimes just before she pushed the button EMU Exam - Exam Physical/Neurological Exam: Physical Exam: General: Well appearing in no acute distress. Morbidly obese Eyes: normal conjunctiva (no erythema), pupils were equal and reactive. MSK: no extremity deformities Derm: no rashes or lesions Neurological Exam: Mental Status: Awake and alert. Oriented to person, place, and time. Fluent. Comprehension intact. Affect appropriate. Cranial Nerves: Versions were full and without nystagmus. Facial musculature and sensation were symmetric except for left ptosis that appears more marked today but is somewhat variable. She denies diplopia. Hearing grossly intact to voice. Palate was upgoing bilaterally. Tongue was midline. Shoulder shrug was symmetric. Motor: Bulk and strength were normal throughout. Pronator drift was absent. There is a mild postural tremor of the left hand. Sensory: Sensation to light touch intact. Romberg was deferred. Coordination: FTN with end-target tremor on the left but no ataxia. 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 She has been temporarily doubling her clonazepam during these episodes. Though her seizures have not changed in their description over the years, she previously had an electrographic correlate to episodes where she could not speak, whereas with more recent monitoring in [place], she did not. In addition, she is tired frequently. The current monitoring session is undertaken in order to characterize events and attempt to get the patient on less medication, with hopefully good seizure control and less sleepiness. Three typical "hardly noticeable" events recorded thus far, without EEG correlate. One 'bad' seizure has been captured, without EEG correlate. She felt she could not speak with this for a short time. During monitoring 10/29-10/30, multiple medium and bad seizures were captured and one bad seizure overnight demonstrated a rhythmic 4 to 5 Hz pattern while others seemed to have a voltage attenuation associated. Suspect focal seizures not reaching scalp electrodes consistently. Will treat with increased clonazepam dose today and will increase Lyrica to 150mg QAM and 200mg QPM since level was low in June. Do not want to increase oxcarbazepine further given mild hyponatremia. Plan: * Continue [facility] video EEG monitoring to capture typical episodes today. * Seizure precautions * lorazepam 1mg IV prn GTC * continue oxcarbazepine 300/150/300mg, increase clonazepam to 1mg TID for today and increase Lyrica to 150mg QAM and 200mg QPM. Will return clonazepam to 0.5mg TID tomorrow. * Lovenox daily for DVT ppx * Restart Flonase and azelastine. Continue loratadine. * continue other home meds * artificial tears prn for eye irritation * Will consider d/c home tomorrow if things settle down with above medication changes.
[2016-10-30] MEDS: PTO: Azelastine 0.15% NASAL(NF) 30 ML BTL BOTH NARES SCH ×2 (12:26→23:41)
[2016-10-30] MEDS: Fluticasone NASAL SPRAY 50MCG* 16 gm SPRAY BTL BOTH NARES SCH (12:26)
[2016-10-30] MEDS ORDERED: Pregabalin CAP(*) 25 MG PO ONE (12:30)
[2016-10-30] MEDS: Enoxaparin(*) 40 MG/0.4 ML SYR SUBCUT SCH (16:56)
[2016-10-30] MEDS ORDERED: Pregabalin CAP(*) 100 MG PO SCH (21:00)
[2016-10-30] MEDS: Aspirin EC Low Dose* 81 MG TAB.EC PO SCH (23:41)
[2016-10-31 07:58] VITALS: BP 139/69
[2016-10-31] MEDS: CARBOXYMETHYLCELLULOSE GLYCERI BOTH EYES SCH (08:22)
[2016-10-31] MEDS: Citalopram TAB* 20 MG PO SCH (08:24)
[2016-10-31] MEDS: Cholecalciferol TAB* 1000 UNITS PO SCH (08:24)
[2016-10-31] MEDS: Cetirizine* 10 MG TAB PO SCH (08:24)
[2016-10-31] MEDS: clonazePAM TAB(*) 0.5 MG PO SCH (08:25)
[2016-10-31] MEDS: Cyanocobalamin TAB* 500 MCG PO SCH (08:26)
[2016-10-31] MEDS: Diltiazem CD CAP* 180 MG PO SCH (08:26)
[2016-10-31] MEDS: Furosemide TAB* 40 MG PO SCH (08:27)
[2016-10-31] MEDS: Meloxicam(NF) 15 MG TAB PO SCH (08:28)
[2016-10-31] MEDS: PTO:OMEGA-3 FATTY ACIDS (NF) 1,000 MG CAP PO SCH (08:28)
[2016-10-31] MEDS: Losartan TAB* 25 MG PO SCH (08:28)
[2016-10-31] MEDS: OXcarbazepine TAB(*) 300 MG PO SCH ×2 (08:29→14:54)
[2016-10-31] MEDS: risperiDONE TAB* 1 MG PO SCH (08:31)
[2016-10-31] MEDS: Fluticasone NASAL SPRAY 50MCG* 16 gm SPRAY BTL BOTH NARES SCH (08:34)
[2016-10-31] MEDS: PTO: Azelastine 0.15% NASAL(NF) 30 ML BTL BOTH NARES SCH (08:38)
[2016-10-31] MEDS ORDERED: Pregabalin CAP(*) 50 MG PO SCH (09:00)
[2016-10-31] MEDS ORDERED: clonazePAM TAB(*) 0.5 MG PO SCH (14:11)
--- NOTE | 2016-10-31 14:18 | PN ---
Epilepsy Service Progress Note - Subjective DOS 10/31/16 No further seizures since yesterday at 11:30. Patient tolerated increased dose of Lyrica ok. States she feels ready to go home today. A little dizzy when she stands up but she thinks that might be due to laying and sitting so much, and possibly the medication too. - Medications Active Medications: Acetaminophen (Tylenol Tab*) 975 mg PO Q4H PRN PRN Reason: DISCOMFORT Aspirin (Aspirin Ec Low Dose*) 81 mg PO BEDTIME [facility] Last Admin: 10/30/16 23:41 Dose: 81 mg Azelastine HCl (Astepro 0.15% Nasal (Nf)) 1 spray BOTH NARES BID [facility] Last Admin: 10/31/16 08:38 Dose: 1 spray Carboxymethylcellulose Sodium (Celluvisc 1% Opth*) 1 drop BOTH EYES BID [facility] Last Admin: 10/31/16 08:22 Dose: 1 everardo Cetirizine HCl (Zyrtec*) 10 mg PO DAILY [facility] Last Admin: 10/31/16 08:24 Dose: 10 mg Cholecalciferol (Vitamin D Tab*) 2,000 units PO DAILY [facility] Last Admin: 10/31/16 08:24 Dose: 2,000 units Citalopram Hydrobromide (Celexa Tab*) 20 mg PO DAILY [facility] Last Admin: 10/31/16 08:24 Dose: 20 mg Clonazepam (Klonopin Tab(*)) 1 mg PO TID [facility] Last Admin: 10/31/16 08:25 Dose: 1 mg Cyanocobalamin (Vitamin B12 Tab*) 500 mcg PO DAILY [facility] Last Admin: 10/31/16 08:26 Dose: 500 mcg Diltiazem HCl (Cardizem Cd Cap*) 180 mg PO DAILY [facility] Last Admin: 10/31/16 08:26 Dose: 180 mg Diphenhydramine HCl (Benadryl Po*) 25 mg PO Q6H PRN PRN Reason: ITCHING Enoxaparin Sodium (Lovenox(*)) 40 mg SUBCUT Q24H [facility] Last Admin: 10/30/16 16:56 Dose: 40 mg Fish Oil (Fish Oil (Nf)) 1,000 mg PO DAILY [facility] Last Admin: 10/31/16 08:28 Dose: 1,000 mg Fluticasone Propionate (Flonase Nasal [place] 50mcg*) 2 spray BOTH NARES DAILY [facility] Last Admin: 10/31/16 08:34 Dose: 2 spray Furosemide (Lasix Tab*) 40 mg PO DAILY [facility] Last Admin: 10/31/16 08:27 Dose: 40 mg Lorazepam (Ativan Inj*) 1 mg IV Q8H PRN PRN Reason: Generalized Tonic Clonic Seizu Losartan Potassium (Cozaar Tab*) 50 mg PO DAILY [facility] Last Admin: 10/31/16 08:28 Dose: 50 mg Meloxicam (Mobic(Nf)) 15 mg PO DAILY [facility] Last Admin: 10/31/16 08:28 Dose: 15 mg Oxcarbazepine (Trileptal Tab(*)) 300 mg PO BID [facility] Last Admin: 10/31/16 08:29 Dose: 300 mg Oxcarbazepine (Trileptal Tab(*)) 150 mg PO 1500 [facility] Last Admin: 10/30/16 15:00 Dose: 150 mg Polyvinyl Alcohol (Polyvinyl Alcohol 1.4% Opth*) 1 drop BOTH EYES Q2H PRN PRN Reason: DRY EYE Pregabalin (Lyrica Cap(*)) 200 mg PO BEDTIME [facility] Last Admin: 10/30/16 23:40 Dose: 200 mg Pregabalin (Lyrica Cap(*)) 150 mg PO QAM [facility] Last Admin: 10/31/16 08:30 Dose: 150 mg Risperidone (Risperdal*) 0.5 mg PO BID [facility] Last Admin: 10/31/16 08:31 Dose: 0.5 mg Sodium Chloride (Sodium Chloride 0.65% Nasal [place]*) 1 spray BOTH NARES Q4H PRN PRN Reason: DISCOMFORT EMU Diagnostics - Diagnostic Most Recent Vital Signs: Vital Signs: Temp Pulse Resp BP Pulse Ox 97 F 79 15 139/69 96 10/31/16 08:00 10/31/16 07:24 10/31/16 08:00 10/31/16 07:24 10/30/16 19:54 Lab Results: Laboratory Tests 10/29/16 04:06 POC Glucose (mg/dL) 135 H Interim video-EEG long-term monitoring report: #01 10/25: PDR 8, normal sleep background. During sleep, there are epileptiform discharges in the left temporal region. She had 3 events of a light undescribable feeling which had no EEG correlate. #02 10/26: background as above with occasional discharges in the left temporal region during sleep. No new patient events, no seizures. #03 10/27: background as above except that one right temporal sharp wave, probable benign sleep transient, was seen. No patient events, no seizures. #04 10/28: There is a greater proportion of intermittent delta slowing intermixed within the waking/drowsy backgrounds. At times, this is frontally predominant while at other times it is diffuse. Otherwise, discharges in the left temporal region continue to be seen during drowsiness and sleep, on occasion. She had an event at 03:53 that was not associated with any EEG change. #05 10/29: Patient had multiple events which are further detailed in the LTM report. Many had no obvious EEG signature. She either described "medium" or "bad " seizures. With an event around 0100 on 10/30, there was a rhythmic 4-5 Hz pattern noted in the left temporal region, maximal at F7 and T3/T7. With some of the subsequent events (but not all), there seemed to be voltage attenuation over the left hemisphere at the beginning of the event, sometimes just before she pushed the button #06 10/30: Patient had 3 more events in the morning of 10/30. With 2 of the events , there seemed to be a voltage attenuation noted prior to the event button being pressed. With the event at 11:25, there was possible rhythmic delta activity in the left temporal region for a few seconds. Otherwise, interictal left temporal discharges were also seen during waking, in addition to still being present during drowsiness and sleep EMU Exam - Exam Physical/Neurological Exam: Physical Exam: General: Well appearing in no acute distress. Morbidly obese Eyes: normal conjunctiva (no erythema), pupils were equal and reactive. MSK: no extremity deformities Derm: no rashes or lesions Neurological Exam: Mental Status: Awake and alert. Oriented to person, place, and time. Fluent. Comprehension intact. Affect appropriate. Cranial Nerves: Versions were full and without nystagmus. Facial musculature and sensation were symmetric except for left ptosis that appears more marked today but is somewhat variable. She denies diplopia. Hearing grossly intact to voice. Palate was upgoing bilaterally. Tongue was midline. Shoulder shrug was symmetric. Motor: Bulk and strength were normal throughout. Pronator drift was absent. There is a mild postural tremor of the left hand. Sensory: Sensation to light touch intact. Romberg was deferred. Coordination: FTN with end-target tremor on the left but no ataxia. 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 She has been temporarily doubling her clonazepam during these episodes. Though her seizures have not changed in their description over the years, she previously had an electrographic correlate to episodes where she could not speak, whereas with more recent monitoring in [place], she did not. In addition, she is tired frequently. The current monitoring session is undertaken in order to characterize events and attempt to get the patient on less medication, with hopefully good seizure control and less sleepiness. Three typical "hardly noticeable" events recorded thus far, without EEG correlate. One 'bad' seizure has been captured, without EEG correlate. She felt she could not speak with this for a short time. During monitoring 10/29-10/30, multiple medium and bad seizures were captured and one bad seizure overnight demonstrated a rhythmic 4 to 5 Hz pattern while others seemed to have a voltage attenuation associated. Three more seizures occurred in the AM on 10/30, two with associated voltage attenuation and one with a possible rhythmic delta/ theta pattern for a few seconds. Suspect focal seizures not reaching scalp electrodes consistently. Will decrease clonazepam back to home dose and continue Lyrica 150mg QAM and 200mg QPM. Do not want to increase oxcarbazepine further given mild hyponatremia. 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
--- NOTE | 2016-10-31 14:23 | DS ---
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 The patient had numerous events consisting of a difficult to describe feeling, sometimes a feeling of fear and not wanting to be alone. With the stronger events, she would not be able to speak and sometimes would not be able to move properly. This was particularly noted when she was trying to take medications from a nurse one morning and was unable to use her right hand properly. These were considered typical of events that the was having at home. During these events, the EEG showed most often no correlate. However, during one of the "bad" seizures around 0100 on 10/30, there was a 4 to 5 Hz spiking pattern noted in the left temporal region. In addition, with some of the subsequent seizures, there appeared to be a voltage attenuation a few seconds before the patient would press the event button. The following medication medication changes were made during the testing: clonazepam temporarily increased to 1mg TID. Lyrica increased to 150mg QAM and 200mg QPM. Plan for discussion in [facility] for possibility of Phase 2 monitoring as the patient has expressed interest in a surgical option. She will need updated MRI, which will need to be done in [place] or [place] due to her VNS. Will also likely need neuropsychiatric testing, possibly fMRI and/or PIERRE. Discharge Examination: same as admission Destination: Home. Diet: Regular. Follow-up: Dr Hackett 01/27/17. Home Medications Medication Instructions Recorded Confirmed Type Acetaminophen [Extra Strength 1,000 mg PO Q4H PRN 05/25/16 10/25/16 History Acetaminop] Aspirin [Aspirin Adult Low Dose 81 81 mg PO BEDTIME 05/25/16 10/25/16 History MG] Cyanocobalamin TAB* [Vitamin B12 500 mcg PO DAILY 05/25/16 10/25/16 History TAB*] Furosemide TAB* [Lasix TAB*] 40 mg PO DAILY 05/25/16 10/25/16 History Loratadine [Loratadine Allergy 10 mg PO DAILY 05/25/16 10/25/16 History Relief] Losartan Potassium [Cozaar] 50 mg PO DAILY 05/25/16 10/25/16 History Meloxicam [Mobic] 15 mg PO DAILY 05/25/16 10/25/16 History OXcarbazepine TAB(*) [Trileptal 300 mg PO BID 05/25/16 10/25/16 History 300 mg TAB(*)] Pregabalin CAP(*) [Lyrica CAP(*)] 150 mg PO BID 05/25/16 10/25/16 History Risperidone [Risperdal] 0.5 mg PO BID 05/25/16 10/25/16 History Saline NASAL SPRAY 0.65%* [Sodium 1 spray BOTH NARES Q4H PRN 05/25/16 10/25/16 History Chloride 0.65% Nasal [place]*] clonazePAM TAB(*) [Klonopin TAB(*)] 0.5 mg PO TID 05/25/16 10/25/16 History Azelastine HCl 2 spray BOTH NARES DAILY 10/25/16 10/25/16 History Carboxymethylcellulose-Glyceri 1 drop BOTH EYES BID 10/25/16 10/25/16 History [Refresh Optive 0.5-0.9 %] Cartia Xt 180 mg PO DAILY 10/25/16 10/25/16 History Citalopram Hydrobromide [Celexa] 20 mg PO DAILY 10/25/16 10/25/16 History Fish Oil 1,000 mg PO DAILY 10/25/16 10/25/16 History Fluticasone Propionate (Nasal) 1 spray BOTH NARES DAILY 10/25/16 10/25/16 History [Flonase Allergy Relief] Oxcarbazepine [Trileptal 300 mg 150 mg PO DAILY WITH MEAL 10/25/16 10/25/16 History tab] Vitamin D3 Super Strength 2,000 units PO DAILY 10/25/16 10/25/16 History
== END 2016-10-31 16:15 | disposition home or self-care (01) | DRG 101 ==
LOC: MCHPEDS 13:05 → EMU 13:05
PROVIDERS: ADMIT Psychiatry & Neurology Neurology; ATTEND Psychiatry & Neurology Neurology
DX: G40.219 Localization-related (focal) (partial) symptomatic epilepsy and epileptic syndromes with complex partial seizures, intractable, without status epilepticus (principal); G93.81 Temporal sclerosis; Z68.43 Body mass index [BMI] 50.0-59.9, adult; Z79.82 Long term (current) use of aspirin; I10 Essential (primary) hypertension; Z87.440 Personal history of urinary (tract) infections; F41.9 Anxiety disorder, unspecified; E66.01 Morbid (severe) obesity due to excess calories; Z91.410 Personal history of adult physical and sexual abuse; E11.9 Type 2 diabetes mellitus without complications; Z81.8 Family history of other mental and behavioral disorders; F32.9 Major depressive disorder, single episode, unspecified; Z91.040 Latex allergy status; Z91.048 Other nonmedicinal substance allergy status; Z88.8 Allergy status to other drugs, medicaments and biological substances
CPT/HCPCS: 95813; 95951; A9270-GY; J1650

== ENCOUNTER 2017-09-29 13:14 | Emergency (ER) | payer MEDICARE, MEDICAID ==
--- OUTSIDE RECORDS SUMMARY | 2017-09-29 13:26 | XMS REPORT ---
:1955 External Reference #:[id number] Author Organization [facility] Address [address] [address] Phone [phone] Care Team Providers Name Role Phone Wood Flanagan DO Care Team Information Bill Collector Unavailable Wood Flanagan DO Primary Care Physician Unavailable Payers Type Date Identification Numbers Payment Provider Subscriber Medicare Primary Policy Number: [id number] Medicare Dawna Burns PayID: [id number] [address] [place] [address] [facility] Policy Number: [id number] Medicaid Dawna Burns Group Name: 1 [address] PayID: [id number] [place] [address] Problems Date Description Provider Status Onset: 09/09/2017 History of implantation of artificial Allyn Hackett MD Active sphincter Onset: 01/27/2017 Taking medication Allyn Hackett MD Active Onset: 01/27/2017 Temporal lobe epilepsy with mesial temporal Allyn Hackett MD Active sclerosis Onset: 07/02/2016 Epilepsy characterized by intractable Allyn Hackett MD Active complex partial seizures Family History Date Family Member(s) Problem(s) Comments Father Alzheimer's Disease Social History Type Date Description Comments ETOH Use Rarely consumes alcohol Smoking Patient has never smoked Allergies, Adverse Reactions, Alerts Date Description Reaction Status Severity Comments 07/02/2016 NKDA active 01/27/2017 Tape active 01/27/2017 Latex active Medications Medication Date Status Form Strength Qnty SIG Indications Ordering Provider Lyrica 11/29/ Active Capsules 200mg 30cap take one Allyn 2017 s capsule by MD Roxann mouth in the evening.. Clonazepam / Active Tablets 0.5mg 90tab 1/2 to 1 Allyn s tablet by MD Roxann mouth three times a day as directed Trileptal / Active Tablets 300mg 225ta take 1 in Allyn 0000 bs in the MD Roxann morning, 1/2 tablet afternoon and 1 at night Lyrica / Active Capsules 150mg 30cap Take 1 Allyn 0000 s casule by MD Roxann mouth in the morning.. Losartan / Active Tablets 50mg 1 by mouth Unknown Potassium 0000 every day Cartia XT / Active Caps ER 24HR 180mg 1 by mouth Unknown 0000 every day Aspir-81 / Active Tablets DR 81mg 1 by mouth Unknown 0000 every day Risperidone / Active Tablets 0.5mg take one Unknown 0000 tablet by mouth twice a day Loratadine / Active Tablets 10mg 1 by mouth Unknown 0000 every day Vitamin D3 / Active Capsules 2000Unit once daily Unknown Super Strength 0000 Fish Oil / Active Capsules 1000mg Unknown Burp-Less 0000 Vitamin B12 / Active Tablets ER 1000mcg 1 by mouth Unknown 0000 every day Furosemide / Active Tablets 40mg 1 by mouth Unknown 0000 every day Meloxicam / Active Tablets 15mg 1 by mouth Unknown 0000 every day Fluticasone / Active Suspension 50mcg/Act 2 sprays Unknown Propionate 0000 each nostril daily as needed Saline Nasal / Active Solution 0.65% irrigate Unknown [place] 0000 both nostirils 3x daily as needed Azelastine HCL / Active Solution 0.1% [place] 2 Unknown (Nasal) 0000 Sprays In Each Nostril Once Daily Escitalopram / Active Tablets 10mg 1 by mouth Unknown Oxalate 0000 every day Alprazolam / Hx Tablets 0.5mg 1 as Unknown 0000 - needed for , 2016 up to 3 per day Citalopram / Hx Tablets 20mg 1 by mouth Unknown Hydrobromide 0000 - every day 2016 Vital Signs Date Vital Result Comment 09/09/2017 Height 51.5 inches 4'3.50" Weight 223.00 lb Heart Rate 80 /min BP Systolic Sitting 128 mmHg BP Diastolic Sitting 88 mmHg BMI (Body Mass Index) 59.1 kg/m2 07/02/2017 Height 51.5 inches 4'3.50" Weight 224.50 lb Heart Rate 82 /min BP Systolic Sitting 130 mmHg BP Diastolic Sitting 82 mmHg BMI (Body Mass Index) 59.5 kg/m2 04/01/2017 Height 51.5 inches 4'3.50" Weight 217.00 lb Heart Rate 85 /min BP Systolic Sitting 134 mmHg BP Diastolic Sitting 86 mmHg Respiratory Rate 16 /min BMI (Body Mass Index) 57.5 kg/m2 01/27/2017 Height 51.5 inches 4'3.50" Weight 255.38 lb Heart Rate 76 /min BP Systolic Sitting 122 mmHg BP Diastolic Sitting 78 mmHg BMI (Body Mass Index) 67.7 kg/m2 10/14/2016 Height 51.5 inches 4'3.50" Weight 229.00 lb Heart Rate 80 /min BP Systolic Sitting 118 mmHg BP Diastolic Sitting 68 mmHg Respiratory Rate 17 /min BMI (Body Mass Index) 60.7 kg/m2 07/02/2016 Height 51.5 inches 4'3.50" Weight 226.00 lb Heart Rate 81 /min BP Systolic Sitting 130 mmHg BP Diastolic Sitting 72 mmHg Respiratory Rate 17 /min BMI (Body Mass Index) 59.9 kg/m2 Results Test Date Test Result H/L Range Note Comp Metabolic Panel 2017 Sodium 128 mmol/L Low 133-145 Potassium 3.3 mmol/L Low 3.5-5.0 Chloride 93 mmol/L Low 101-111 Co2 Carbon Dioxide 27 mmol/L 22-32 Anion Gap 8 mmol/L 2-11 Glucose 125 mg/dL High 70-100 Blood Urea Nitrogen 17 mg/dL 6-24 Creatinine 0.66 mg/dL 0.51-0.95 BUN/Creatinine Ratio 25.8 High 8-20 Calcium 9.1 mg/dL 8.6-10.3 Total Protein 6.6 g/dL 6.4-8.9 Albumin 3.8 g/dL 3.2-5.2 Globulin 2.8 g/dL 2-4 Albumin/Globulin Ratio 1.4 1-3 Total Bilirubin 0.50 mg/dL 0.2-1.0 Alkaline Phosphatase 36 U/L 34-104 Alt 37 U/L 7-52 Ast 23 U/L 13-39 Egfr Non- 90.2 >60 Egfr 116.0 >60 1 Laboratory test finding 2017 Pregabalin (Lyrica), Serum 2.1 2 Istat BUN/Crea/Egfr/V 11/27/2016 Poc Bun Mainmri 7 mg/dL Low 9-18 Mainmri Poc Crea Mainmri 0.5 mg/dL Low 0.6-0.9 GFR Non- Mmri 124.6 >60 GFR Mainmri 160.3 >60 3 Comp Metabolic Panel 07/02/2016 Sodium 129 mmol/L Low 133-145 Potassium 4.0 mmol/L 3.5-5.0 Chloride 95 mmol/L Low 101-111 Co2 Carbon Dioxide 28 mmol/L 22-32 Anion Gap 6 mmol/L 2-11 Glucose 113 mg/dL High 70-100 Blood Urea Nitrogen 9 mg/dL 6-24 Creatinine 0.58 mg/dL 0.51-0.95 BUN/Creatinine Ratio 15.5 8-20 Calcium 9.6 mg/dL 8.6-10.3 Total Protein 7.2 g/dL 6.4-8.9 Albumin 4.2 g/dL 3.2-5.2 Globulin 3.0 g/dL 2-4 Albumin/Globulin Ratio 1.4 1-3 Total Bilirubin 0.60 mg/dL 0.2-1.0 Alkaline Phosphatase 45 U/L 34-104 Alt 32 U/L 7-52 Ast 27 U/L 13-39 Egfr Non- 105.0 >60 Egfr 135.0 >60 4 CBC Auto Diff 07/02/2016 White Blood Count 3.8 10^3/uL 3.5-10.8 Red Blood Count 4.63 10^6/uL 4.0-5.4 Hemoglobin 14.4 g/dL 12.0-16.0 Hematocrit 42 % 35-47 Mean Corpuscular Volume 91 fL 80-97 Mean Corpuscular Hemoglobin 31 pg 27-31 Mean Corpuscular HGB Conc 34 g/dL 31-36 Red Cell Distribution Width 13 % 10.5-15 Platelet Count 160 10^3/uL 150-450 Mean Platelet Volume 8 um3 7.4-10.4 Abs Neutrophils 1.7 10^3/uL 1.5-7.7 Abs Lymphocytes 1.7 10^3/uL 1.0-4.8 Abs Monocytes 0.3 10^3/uL 0-0.8 Abs Eosinophils 0.2 10^3/uL 0-0.6 Abs Basophils 0.1 10^3/uL 0-0.2 Abs Nucleated RBC 0.01 10^3/uL Granulocyte % 43.1 % 38-83 Lymphocyte % 43.6 % 25-47 Monocyte % 7.4 % 1-9 Eosinophil % 4.4 % 0-6 Basophil % 1.5 % 0-2 Nucleated Red Blood Cells % 0.2 Laboratory test finding 07/02/2016 Trileptal (Oxcarbazepine) 19 g/mL 3 - 35 5 Miscellaneous Test See Comment 6 1 Because ethnic data is not always readily available, this report includes an eGFR for both -Americans and non- Americans. The National Kidney Disease Education Program (NKDEP) does not endorse the use of the MDRD equation for patients that are not between the ages of 18 and 70, are , have extremes of body size, muscle mass, or nutritional status, or are non- or non-. According to the National Kidney Foundation, irrespective of diagnosis, the stage of the disease is based on the level of kidney function: Stage Description GFR(mL/min/1.73 m(2)) 1 Kidney damage with normal or decreased GFR 90 2 Kidney damage with mild decrease in GFR 60-89 3 Moderate decrease in GFR 30-59 4 Severe decrease in GFR 15-29 5 Kidney failure <15 (or dialysis) 2 Test Result Flag Unit RefValue Pregabalin, S 2.1 mcg/mL 2.0-5.0 ADDITIONAL INFORMATION This test was developed and its performance characteristics determined by [facility] in a manner consistent with CLIA requirements. This test has not been cleared or approved by the U.S. Food and Drug Administration. Test Performed by: [facility] [address] [place] [address] 3 Because ethnic data is not always readily available, this report includes an eGFR for both -Americans and non- Americans. The National Kidney Disease Education Program (NKDEP) does not endorse the use of the MDRD equation for patients that are not between the ages of 18 and 70, are , have extremes of body size, muscle mass, or nutritional status, or are non- or non-. According to the National Kidney Foundation, irrespective of diagnosis, the stage of the disease is based on the level of kidney function: Stage Description GFR(mL/min/1.73 m(2)) 1 Kidney damage with normal or decreased GFR 90 2 Kidney damage with mild decrease in GFR 60-89 3 Moderate decrease in GFR 30-59 4 Severe decrease in GFR 15-29 5 Kidney failure <15 (or dialysis) 4 Because ethnic data is not always readily available, this report includes an eGFR for both -Americans and non- Americans. The National Kidney Disease Education Program (NKDEP) does not endorse the use of the MDRD equation for patients that are not between the ages of 18 and 70, are , have extremes of body size, muscle mass, or nutritional status, or are non- or non-. According to the National Kidney Foundation, irrespective of diagnosis, the stage of the disease is based on the level of kidney function: Stage Description GFR(mL/min/1.73 m(2)) 1 Kidney damage with normal or decreased GFR 90 2 Kidney damage with mild decrease in GFR 60-89 3 Moderate decrease in GFR 30-59 4 Severe decrease in GFR 15-29 5 Kidney failure <15 (or dialysis) 5 ADDITIONAL INFORMATION This test was developed and its performance characteristics determined by [facility] in a manner consistent with CLIA requirements. This test has not been cleared or approved by the U.S. Food and Drug Administration. Test Performed by: [facility] [place] [address] University Administrator: Sixto Wayne II, M.D., Ph.D. 6 Test Result Flag Unit RefValue Pregabalin, S 1.1 L mcg/mL 2.0-5.0 ADDITIONAL INFORMATION This test was developed and its performance characteristics determined by [facility] in a manner consistent with CLIA requirements. This test has not been cleared or approved by the U.S. Food and Drug Administration. Test Performed by: [facility] [place] [address] University Administrator: Sixto Wayne II, M.D., Ph.D. Procedures Date CPT Code Description Status 07/02/2017 07393 Neurostimulator Pulse Generator Analysis W/O Completed Reprogramming 04/01/2017 26564 Neurostimulator Pulse Generator Analysis W/O Completed Reprogramming 01/27/2017 26026 Neurostimulator Pulse Generator Analysis W/O Completed Reprogramming 10/30/2016 31596 EEG Monitoring & Video Recording Completed 10/29/2016 10086 EEG Monitoring & Video Recording Completed 10/28/2016 18468 EEG Monitoring & Video Recording Completed 10/27/2016 42172 EEG Monitoring & Video Recording Completed 10/26/2016 75457 EEG Monitoring & Video Recording Completed 10/25/2016 64102 EEG Monitoring & Video Recording Completed 07/02/2016 25612 Neurostimulator Pulse Generator Analysis W/O Completed Reprogramming Encounters Type Date Location Provider CPT E/M Dx Office Visit 07/02/2017 [facility] [address] G40.219 11:00a G93.81 Z79.899 Z96.89 Office Visit 04/01/2017 9:00a [facility] [address] G40.219 G93.81 Z79.899 Office Visit 01/27/2017 11:00a [facility] [address] G40.219 G93.81 Z79.899 Office Visit 10/31/2016 3:13p [facility] [address] G40.219 G93.81 Z79.899 Office Visit 10/30/2016 3:12p [facility] [address] G40.219 G93.81 Z79.899 Office Visit 10/29/2016 3:12p [facility] [address] G40.219 G93.81 Z79.899 Office Visit 10/28/2016 3:12p [facility] [place] [address] G40.219 G93.81 Z79.899 Office Visit 10/27/2016 3:11p [facility] [address] G40.219 G93.81 Z79.899 Office Visit 10/26/2016 3:11p [facility] [address] G40.219 G93.81 Z79.899 Office Visit 10/25/2016 3:10p [facility] [address] G40.219 G93.81 Z79.899 Office Visit 10/14/2016 2:00p [facility] [place] [address] G40.219 [facility] Office Visit 07/02/2016 11:00a [facility] [place] [address] G40.219 [facility] Plan of Care Future Appointment(s):12/18/2017 1:00 pm - Albert Padilla M.D. at [facility]09/09/2017 - Allyn Hackett MDG40.219 Local-rel symptc epi w cmplx part seiz, ntrct, w/o stat epiFollow up:: [address] Padilla 30 minRecommendations:VNS settings changed Continue current medications we discussed medical marijuana/CBD - I don't thinkthis would be a good idea for you at this time.G93.81 Temporal rbgkqnftcO39.899 Other intermediate school teacher (current) drug cyuoahzI32.89 Presence of other specified functional implants
--- NOTE | 2017-09-29 13:50 | UC ---
Laceration HPI - HPI Summary HPI Summary: 62 y/o female presents to the urgent care c/o cutting her L 3rd and 4th finger w/ a knife yesterday about 1700 pm while opening up a package of meat. Pt states pain is 5/10 at touch and w/ movement. Pt can move finger w/o any difficulty. Pt can't recall when was last Tetanus vaccine. Pt irrigated well wound and bleeding stopped w/ pressure. She didn't come yesterday since she didn 't we were open until 10pm. Pt denies fever, sings of infection, numbness or tingling sensation, over the finger, SOB, chest pain, dizziness, MART, abdominal pain, N/V/D. - History Of Current Complaint Chief Complaint: TANIYAkin Stated Complaint: L MIDDLE FINGER LAC Time Seen by Provider: 09/29/17 13:47 Hx Obtained From: Patient Laceration Location: Finger - left middle finger Mechanism Of Injury: Sharp Trauma Onset/Duration: Sudden Onset, Lasting Days - 1 day yesterday at 1700pm, Still Present Severity: Mild Pain Intensity: 2 Pain Scale Used: 0-10 Numeric Aggravating Factors: Movement, Other: - touch Related History: Dominant Hand Right - Allergies/Home Medications Allergies/Adverse Reactions: Allergies Allergy/AdvReac Type Severity Reaction Status Date / Time latex Allergy Rash Verified 09/29/17 13:28 ENVIRONMENTAL Allergy Congestion Uncoded 09/29/17 13:28 TAPE Allergy Rash Uncoded 09/29/17 13:28 PMH/Surg Hx/FS Hx/Imm Hx Previously Healthy: Yes Endocrine History: Diabetes, Dyslipidemia Other Cardiovascular History: heart murmur Neurological History: Seizures - Surgical History Surgical History: Yes Surgery Procedure, Year, and Place: ORAL SURGERY;. TONSILS;. VNS SYSTEM PLACED AND BATTERY REPLACED (SEE OP REPORTS). *(VNS SYSTEM - OKAY TO SCAN WITH VNS PER DR. JONES. MUST USE OLD HEAD COIL (T/R COIL ONLY) MUST SCAN IN NORMAL MODE, SAFE AT ALL SITES. DR. LUX NEEDS TO TURN DEVICE OFF FOR TEST AND WILL BE AT HOSPITAL NEXT WEEK (WEEK OF ) SCHEDULE PT AT HOSPITAL AT THAT TIME. BE SURE TO LET KING AT DR. LUX OFFICE.)* - Family History Known Family History: Positive: Cardiac Disease, Hypertension, Diabetes - Social History Occupation: Retired Lives: Alone Alcohol Use: None Substance Use Type: None Smoking Status (MU): Never Smoked Tobacco Have You Smoked in the Last Year: No - Immunization History Most Recent Influenza Vaccination: believes that she received it this past season Most Recent Tetanus Shot: unknown Most Recent Pneumonia Vaccination: Pt doesn't believe that she received one Review of Systems Constitutional: Negative Skin: Other - laceration to left middle finger Eyes: Negative ENT: Negative Respiratory: Negative Cardiovascular: Negative Gastrointestinal: Negative Genitourinary: Negative Motor: Negative Neurovascular: Negative Musculoskeletal: Other: - left middle finger pain s/p laceration Neurological: Negative Psychological: Negative Is Patient Immunocompromised?: No All Other Systems Reviewed And Are Negative: Yes Physical Exam - Summary Physical Exam Summary: Vital Signs Reviewed: Yes General: well developed, well nourished obese female sitting in the examining table w/o any apparent distress Eye Exam: Normal Eyes: Positive: Conjunctiva Clear - PERRLA, EOMI, fundi grossly normal ENT: Positive: Normal ENT inspection, Hearing grossly normal, Pharynx normal, TMs normal Neck: Positive: Supple, Nontender, No Lymphadenopathy Respiratory: Positive: Chest non-tender, Lungs clear, Normal breath sounds, No respiratory distress Cardiovascular: Positive: RRR, No Murmur, Pulses Normal, Brisk Capillary Refill Abdomen Description: Positive: Nontender, No Organomegaly, Soft. Negative: CVA Tenderness (R), CVA Tenderness (L) Bowel Sounds: Positive: Present Musculoskeletal: Positive: Strength Intact, ROM Intact, No Edema Neurological: Positive: Alert, Muscle Tone Normal Psychological Exam: Normal Skin: Positive: Dorsal side of the left 3rd phalanx near the PIJP with a linear superficial laceration about 2.2cm in size, no bleeding, no foreign body observed. mild tenderness to palpation,. FROM of LF arm and left middle finger , sensation intact, capillary refill brisk, and pulses WNL. Triage Information Reviewed: Yes Vital Signs: Initial Vital Signs Temp 98.6 F 09/29/17 13:32 Pulse 83 09/29/17 13:32 Resp 20 09/29/17 13:32 BP 90/48 09/29/17 13:32 Pulse Ox 97 09/29/17 13:32 Laceration Repair - Laceration Repair 1 Description: Linear : No Repair Necessary - unable to perform sutures since laceration more than 20hrs Laceration Size After Repair: Length (cm) - 2.2 Modified For Repair: No Cleansing Completed Via Routine Prep: Yes Irrigation With Pressure Irrigation Device: Yes Closure Material: Skin Adhesive Closure Method: Single Layer Suture Of: Skin Laceration Course/Dx - Course/Dx Course Of Treatment: 62 y/o female presents to the urgent care c/o cutting her L 3rd and 4th finger w/ a knife yesterday about 1700 pm while opening up a package of meat. Pt states pain is 5/10 at touch and w/ movement. Pt can move finger w/o any difficulty. Pt can't recall when was last Tetanus vaccine. Pt irrigated well wound and bleeding stopped w/ pressure. She didn't come yesterday since she didn't we were open until 10pm. Pt denies fever, sings of infection, numbness or tingling sensation, over the finger, SOB, chest pain, dizziness, MART, abdominal pain, N/V/D.Hx obtained. Pt w/ dorsal side of the left 3rd phalanx near the PIJP with a linear superficial laceration about 2.2cm in size, no bleeding, no foreign body observed. mild tenderness to palpation,. FROM of LF arm and left middle finger on examination. Pt's laceration has been more than 20hrs since is in the finger, unable to performe closure w/ sutures. Pt is allergic to latex and Tdap contains latex ingridients. Nurse called DR Flanagan PCP and Medical records at [facility] and unable to get last Tetanus vaccine. I called pharmacy to see if they have a latex free Tdap and they recommended to removed rubber cap from vaccines and draw up vaccine w/ a free latex syringe. Nurse gave Tdap as recommended and Pt tolerated well vaccine. LACERATION PROCEDURE NOTE: Copious irrigation was done with saline and the wound cleaned and explored. There was no FB or deep structure injury noted. Wounds cleaned saline water and then w/ Iodine swabs. bacitracin oint applied over and laceration closed w/ steristrips and then tube dressing applied by Nurse. The Pt tolerated the procedure well without adverse effects. Neurovascular intact and FROM of finger. Pt Rx Keflex PO and Bacitracin ointment since PMHX of DM II and to avoid infection. Also advised to take Tylenol PO to alleviate symptoms. Pt advised if any signs of infection develop despite antibiotic to immediately return to the urgent care of PCP for further management and treatment. Pt understood and agreed and left the clinic ambulating, hemodynamically stable and A&Ox3. - Differential Dx - Laceration/Wound Differental Diagnoses: Abrasion, Laceration, Puncture Wound, Tendon Laceration Provider Diagnoses: 1- Laceration of left 3rd phalanx Discharge - Sign-Out/Discharge Documenting (check all that apply): Discharge/Admit/Transfer - D/C home - Discharge Plan Condition: Stable Disposition: HOME Prescriptions: Bacitracin OINTMENT* 1 applic TOPICAL BID #1 tube Cephalexin CAP* [Keflex CAP*] 500 mg PO QID #28 cap Patient Education Materials: Laceration (ED), Skin Adhesive Care (ED) Referrals: Wood Flanagan DO [Primary Care Provider] - 2 Days Additional Instructions: 1- Laceration ws closed w/ steri-strips since laceration in your finger has been more than 20hrs 2-Please take full course of antibiotic to avoid resistance. 3- Keep wound clean and dry and avoid excessive movement w/ your finger. 4-Take Tylenol PO q6-8hrs prn for pain or swelling. 5- If you develop fever or redness around your finger despite the antibiotic please go to the ER immediately or return to the Urgent care for further management. - Billing Disposition and Condition Condition: STABLE Disposition: HOME
[2017-09-29] MEDS ORDERED: Lidocaine 1% MPF* 2 ML VIAL INJ ONE (13:58)
[2017-09-29 14:15] VITALS: BP 104/61
[2017-09-29] MEDS ORDERED: Tetan/Diph/Pertus SYR(Tdap)* 0.5 ML SYR(BOOSTRIX) use SYR IM ONE (14:30)
== END 2017-09-29 14:48 | disposition home or self-care (01) ==
LOC: UCCORT 13:14
DX: S61.213A Laceration without foreign body of left middle finger without damage to nail, initial encounter (principal); W26.0XXA Contact with knife, initial encounter; Y93.G3 Activity, cooking and baking; Y92.000 Kitchen of unspecified non-institutional (private) residence as the place of occurrence of the external cause; Z23 Encounter for immunization; E11.9 Type 2 diabetes mellitus without complications
CPT/HCPCS: 90471; 90715; 99213; G0463

== ENCOUNTER 2017-11-09 14:23 | Emergency (ER) | payer MEDICARE, MEDICAID ==
--- OUTSIDE RECORDS SUMMARY | 2017-11-09 14:46 | XMS REPORT ---
:1955 External Reference #:[id number] Author Organization [facility] Address [address] [address] Phone [phone] Care Team Providers Name Role Phone Wood Flanagan DO Care Team Information Glove Boarder Unavailable Payers Type Date Identification Numbers Payment Provider Subscriber Medicare Primary Effective: Policy Number: Medicare Steve Monique 1986 [id number] PayID: [id number] [address] [place] [address] [place] Policy Number: [id number] Medicaid ### >11 Steve Monique PayID: [id number] [address] [place] [address] Problems Date Description Provider Status Onset: 03/08/2014 Depressive disorder Wood Flanagan DO Active Onset: 04/21/2013 Anxiety state Wood Flanagan DO Active Onset: 04/21/2013 Edema Wood Flanagan DO Active Onset: 04/21/2013 Obesity Wood Flanagan DO Active Onset: 11/23/2010 Type 2 diabetes mellitus Giovany Velazco MD Active Onset: 12/10/2004 Benign essential hypertension Giovany Velazco MD Active Onset: 12/10/2004 Allergic rhinitis due to pollen Giovany Velazco MD Active Onset: 12/10/2004 Epilepsy Giovany Velazco MD Active Onset: 03/20/2007 Low back pain Giovany Velazco MD Active Onset: 12/30/2005 Hypokalemia Giovany Velazco MD Active Family History Date Family Member(s) Problem(s) Comments : (age 76 Years) Father due to Cancer, Lung Father COPD Father Diabetes, Adult : (age 70 Years) Mother due to Cancer, Throat First Sister Diabetes, Adult Paternal Grandfather Diabetes, Adult Social History Type Date Description Comments Marital Status Single Lives With Alone ETOH Use Rarely consumes alcohol Smoking Patient has never smoked Daily Caffeine Consumes on average 4 cups of coffee per day Allergies, Adverse Reactions, Alerts Date Description Reaction Status Severity Comments 12/01/2013 Fycompa Severe sedation active 10/08/2012 Latex active 07/03/2017 Adhesives active Medications Medication Date Status Form Strength Qnty SIG Indications Ordering Provider Adin ARMENDARIZ 12/04 Active Caps ER 180mg 90cap Take One Flanagan, 24HR s Capsule By Wood, Mouth Every DO Day Vitamin D 05/30 Active Tablets 2000Unit 90tab take one Flanagan, /2014 s tablet by Wood, mouth every DO day Meloxicam 01/05 Active Tablets 15mg 90tab Take One Flanagan, /2013 s Tablet By Wood, Mouth Every DO Day With Food Loratadine 08/10 Active Tablets 10mg 90tab Take One Flanagan, /2013 s Tablet By Wood, Mouth Every DO Day Furosemide 09/24 Active Tablets 40mg 180ta Take Two Flanagan, bs Tablets By Wood, Mouth Every DO Day Losartan 11/16 Active Tablets 50mg 90tab Take One Flanagan, Potassium s Tablet By Wood, Mouth Every DO Day Oxcarbazepine Active Tablets 300mg 1 Q Am 1/2 At Unknown /0000 3:00PM [address] Metzger Clonazepam Active Tablets 0.5mg [address] Metzger Unknown Risperidone Active Tablets 0.5mg 60tab 1 by mouth Unknown /0000 s twice a day DR Foster Aspirin Ec Active Tablets DR 81mg 1 by mouth Unknown / every day Vitamin B12 Active Tablets 1 by mouth Unknown / every day Alden 3 Active 1 PO qd Unknown Lyrica Active Capsules 150mg 1 by mouth in Unknown /0000 the Am Escitalopram Active Tablets 10mg 1 by mouth Unknown every day DR Castellon Azelastine HCL Active Solution 0.1% use 2 sprays Unknown (Nasal) in each nostril twice a day Lyrica Active Capsules 200mg 1 po qhs Unknown /0000 Cane/Adjustabl 04/28 Hx Misc 1unit Use as needed R26.81 Flanagan, e/Aluminum/Rou /2016 s for Wood shashank Handle - ambulation DO 05/13 Bactrim DS 03/21 Hx Tablets 800-160mg 14tab 1 by mouth J01.90 Flanagan, s twice a day x Wood, - 7 days DO 03/28 Semi Electric 11/26 Hx 1unit Please R60.9 Flanagan, Bed With Rails /2015 s dispense a Wood, - new semi DO 12/01 electric bed /2015 with rails- due to edema dx: r60.9 Semi Electric 11/19 Hx 1unit Please M54.5 Flanagan, Bed With Rails /2015 s dispense a Wood, - new semi DO 11/24 electric bed with rails- due to back pain dx: m54.5 Bactrim DS 04/12 Hx Tablets 800-160mg 10tab 1 by mouth R35.0 Flanagan, s twice a day Wood, - DO 04/17 Citalopram 03/03 Hx Tablets 40mg 30tab 1/2 by mouth Flanagan, Hydrobromide /2014 s daily Wood, - DO 03/21 Diltiazem HCL 01/31 Hx Caps ER 180mg 90cap take one Flanagan, ER 24HR s capsule by Wood Beads - mouth every DO Bactrim DS 12/26 Hx Tablets 800-160mg 10tab 1 by mouth 788.41 Flanagan, s twice a day Wood, - DO 12/31 Hospital Bed 11/28 Hx 1unit Use at night 278.00 Flanagan, Pressure s for sleep Wood, Reduction - DO Mattress 12/13 Diltiazem HCL 08/01 Hx Caps ER 180mg 90cap 1 by mouth Flanagan, ER /2014 24HR s every day Wood, - DO 01/31 Zostavax 07/27 Hx Solution [id number]/ 1unit 1 injection Flanagan Rec 0.65ML s to be Wood, - administered DO 08/26 intramuscular at the pharmacy Mucinex 05/24 Hx Tablets ER 600mg 40tab 1 by mouth 461.9 Digiovann 12HR s every 12 a, - hours for 5 Lindsay, then as needed for persistent congestion Sulfamethoxazo 05/24 Hx Tablets 800-160mg 20tab 1 by mouth 461.9 Digiovann le/Trimethopri s every 12 a, m DS - hours for 10 Lindsay, Flonase 11/21 Hx Suspension 50mcg/Act 16uni [place] 1 [place] Flanagan, ts In Each Wood, - Nostril Daily DO 12/26 Lyrica Hx Capsules 200mg 1 po bid Unknown /0000 - 10/23 Diltiazem HCL Hx Caps ER 180mg 90cap take one Flanagan, ER /0000 24HR s capsule by Wood, - mouth every DO /2014 Alprazolam Hx Tablets 0.5mg 30tab 1 by mouth Unknown /0000 s three times a - day as needed 01/04 anxiety /2014 Ravinder Citalopram Hx Tablets 20mg 90tab 1 by mouth Unknown Hydrobromide /[address] Jon Castellon 05/24 Citalopram Hx Tablets 60mg 1 by mouth Unknown Hydrobromide /0000 every day - 03/03 Citalopram Hx Tablets 20mg 90tab 1 by mouth Unknown Hydrobromide /[address] Jon Castellon 07/27 Citalopram Hx Tablets 10mg 1/2 by mouth Unknown Hydrobromide /0000 every day - 05/15 Alprazolam Hx Tablets 0.5mg 1 by mouth Unknown /0000 three times a - day as needed 09/[address] Harris2016 Callie Cortisporin-TC Hx Suspension 3.3-3-10- Unknown /0000 0.5mg/ml - 10/02 Citalopram Hx Tablets 20mg 1 by mouth Unknown Hydrobromide /0000 every day - 12/26 Immunizations CPT Code Status Date Vaccine Lot # [id number] Given 09/29/2017 Tdap (Adacel) Ages 7 And Above Only 53945 Given 03/20/2017 Influenza Vac, 3 Yrs & Older, Quadrivalent, Split, Im Use [id number] Given 04/11/2016 Fluvirin Immunization 82254 Given 08/13/2014 Zoster (Zostavax) 00517 Given 04/26/2014 Afluria Or Fluvirin Flu Vac Intramuscular 74266 Given 03/31/2013 Afluria Or Fluvirin Flu Vac Intramuscular 97493 Given 03/18/2011 Afluria Or Fluvirin Flu Vac Intramuscular 03348 Given 02/08/2010 Afluria Or Fluvirin Flu Vac Intramuscular Vital Signs Date Vital Result Comment 10/14/2017 Weight 219.00 lb Heart Rate 80 /min BP Systolic 126 mmHg BP Diastolic 80 mmHg Respiratory Rate 18 /min Height 62 inches 5'2" 10/14/17 GLORY SCHMITZ BMI (Body Mass Index) 40.1 kg/m2 10/01/2017 Weight 218.00 lb Heart Rate 88 /min BP Systolic 128 mmHg BP Diastolic 88 mmHg Respiratory Rate 18 /min Height 62 inches 5'2" 07/03/17 BMI (Body Mass Index) 39.9 kg/m2 07/03/2017 Weight 224.00 lb Heart Rate 110 /min BP Systolic 120 mmHg BP Diastolic 70 mmHg Respiratory Rate 18 /min Height 62 inches 5'2" 07/03/17 BMI (Body Mass Index) 41.0 kg/m2 03/31/2017 Weight 221.00 lb Heart Rate 84 /min BP Systolic 118 mmHg BP Diastolic 78 mmHg Respiratory Rate 18 /min Height 62 inches 5'2" (05/2016) BMI (Body Mass Index) 40.4 kg/m2 12/26/2016 Body Temperature 98.3 F Weight 228.00 lb Heart Rate 106 /min BP Systolic 128 mmHg BP Diastolic 86 mmHg Respiratory Rate 17 /min Height 62 inches 5'2" (05/2016) BMI (Body Mass Index) 41.7 kg/m2 09/25/2016 Weight 233.00 lb Heart Rate 88 /min BP Systolic 138 mmHg BP Diastolic 94 mmHg Respiratory Rate 18 /min Height 62 inches 5'2" (05/2016) BMI (Body Mass Index) 42.6 kg/m2 08/19/2016 Weight 228.00 lb Heart Rate 78 /min BP Systolic 120 mmHg BP Diastolic 74 mmHg Respiratory Rate 18 /min Height 62 inches 5'2" (05/2016) BMI (Body Mass Index) 41.7 kg/m2 06/28/2016 Weight 234.00 lb Heart Rate 78 /min BP Systolic 122 mmHg BP Diastolic 74 mmHg Respiratory Rate 18 /min Height 62 inches 5'2" (05/2016) BMI (Body Mass Index) 42.8 kg/m2 05/15/2016 Weight 234.00 lb Heart Rate 104 /min BP Systolic 122 mmHg BP Diastolic 70 mmHg Respiratory Rate 18 /min Height 62 inches 5'2" (05/2016) BMI (Body Mass Index) 42.8 kg/m2 03/21/2016 Weight 237.00 lb Heart Rate 74 /min BP Systolic 138 mmHg BP Diastolic 70 mmHg Respiratory Rate 18 /min Height 62 inches 5'2" BMI (Body Mass Index) 43.3 kg/m2 12/29/2015 Weight 230.00 lb Heart Rate 96 /min BP Systolic 116 mmHg BP Diastolic 76 mmHg Respiratory Rate 18 /min Height 62 inches 5'2" BMI (Body Mass Index) 42.1 kg/m2 11/23/2015 Weight 236.00 lb Heart Rate 88 /min BP Systolic 118 mmHg BP Diastolic 68 mmHg Respiratory Rate 18 /min Height 62 inches 5'2" BMI (Body Mass Index) 43.2 kg/m2 08/25/2015 Weight 240.00 lb Heart Rate 84 /min BP Systolic 120 mmHg BP Diastolic 80 mmHg Respiratory Rate 18 /min Height 62 inches 5'2" BMI (Body Mass Index) 43.9 kg/m2 06/26/2015 Weight 236.00 lb Heart Rate 68 /min BP Systolic 118 mmHg BP Diastolic 74 mmHg Respiratory Rate 18 /min Height 62 inches 5'2" BMI (Body Mass Index) 43.2 kg/m2 04/12/2015 Weight 239.00 lb Heart Rate 86 /min BP Systolic 118 mmHg BP Diastolic 74 mmHg Respiratory Rate 18 /min Height 62 inches 5'2" BMI (Body Mass Index) 43.7 kg/m2 03/30/2015 Weight 240.00 lb Heart Rate 84 /min BP Systolic 108 mmHg BP Diastolic 72 mmHg Respiratory Rate 18 /min Height 62 inches 5'2" BMI (Body Mass Index) 43.9 kg/m2 03/03/2015 Weight 235.00 lb Heart Rate 88 /min BP Systolic 124 mmHg BP Diastolic 76 mmHg Respiratory Rate 17 /min Height 62 inches 5'2" BMI (Body Mass Index) 43.0 kg/m2 01/04/2015 Weight 237.00 lb Heart Rate 96 /min BP Systolic 122 mmHg BP Diastolic 62 mmHg Respiratory Rate 18 /min Height 62 inches 5'2" BMI (Body Mass Index) 43.3 kg/m2 12/26/2014 Weight 233.00 lb Heart Rate 96 /min BP Systolic 116 mmHg BP Diastolic 74 mmHg Respiratory Rate 18 /min Height 62 inches 5'2" BMI (Body Mass Index) 42.6 kg/m2 10/05/2014 Weight 240.00 lb Heart Rate 96 /min BP Systolic 110 mmHg BP Diastolic 74 mmHg Respiratory Rate 19 /min Height 62 inches 5'2" BMI (Body Mass Index) 43.9 kg/m2 08/23/2014 Body Temperature 99.3 F Weight 242.00 lb Heart Rate 92 /min Respiratory Rate 18 /min Height 62 inches 5'2" O2 % BldC Oximetry 95 % BMI (Body Mass Index) 44.3 kg/m2 07/27/2014 Weight 241.00 lb Heart Rate 88 /min BP Systolic 144 mmHg BP Diastolic 84 mmHg Respiratory Rate 19 /min Height 62 inches 5'2" BMI (Body Mass Index) 44.1 kg/m2 06/23/2014 Weight 238.00 lb Heart Rate 72 /min BP Systolic 134 mmHg BP Diastolic 74 mmHg Respiratory Rate 18 /min Height 62 inches 5'2" BMI (Body Mass Index) 43.5 kg/m2 06/22/2014 Weight 234.00 lb Heart Rate 88 /min BP Systolic 116 mmHg BP Diastolic 68 mmHg Respiratory Rate 18 /min Height 62 inches 5'2" BMI (Body Mass Index) 42.8 kg/m2 06/01/2014 Weight 224.00 lb Heart Rate 84 /min BP Systolic 128 mmHg BP Diastolic 68 mmHg Respiratory Rate 18 /min Height 62 inches 5'2" BMI (Body Mass Index) 41.0 kg/m2 05/24/2014 Body Temperature 98.6 F Weight 226.00 lb Heart Rate 76 /min BP Systolic 128 mmHg BP Diastolic 74 mmHg Respiratory Rate 18 /min Height 62 inches 5'2" O2 % BldC Oximetry 97 % BMI (Body Mass Index) 41.3 kg/m2 03/25/2014 BP Systolic 148 mmHg BP Diastolic 72 mmHg 03/25/2014 Weight 215.00 lb Heart Rate 88 /min BP Systolic 160 mmHg BP Diastolic 74 mmHg Respiratory Rate 18 /min Height 62 inches 5'2" 03/08/2014 Weight 216.00 lb Heart Rate 88 /min BP Systolic 114 mmHg BP Diastolic 64 mmHg Respiratory Rate 18 /min Height 62 inches 5'2" 01/05/2014 Weight 215.00 lb Heart Rate 82 /min BP Systolic 112 mmHg BP Diastolic 72 mmHg Respiratory Rate 19 /min Height 62 inches 5'2" 12/01/2013 Weight 216.00 lb Heart Rate 76 /min BP Systolic 110 mmHg BP Diastolic 64 mmHg Respiratory Rate 17 /min 08/10/2013 Weight 224.00 lb Heart Rate 78 /min BP Systolic 108 mmHg BP Diastolic 64 mmHg Respiratory Rate 18 /min 07/27/2013 Weight 223.00 lb Heart Rate 94 /min BP Systolic 110 mmHg BP Diastolic 70 mmHg Respiratory Rate 18 /min 06/07/2013 Weight 223.00 lb Heart Rate 72 /min BP Systolic 128 mmHg BP Diastolic 74 mmHg Respiratory Rate 18 /min 05/28/2013 Weight 221.00 lb Heart Rate 72 /min BP Systolic 120 mmHg BP Diastolic 70 mmHg Respiratory Rate 18 /min Height 62 inches 5'2" Results Test Date Test Result H/L Range Note Laboratory test finding 10/14/2017 Pap Smear Thin <pending> Prep-RL CBC With Auto Diff 07/03/2017 WBC 3.4 K/uL Low 4.1-11.0 1 RBC 4.38 M/uL 4.00-5.40 1 Hemoglobin 13.9 gm/dL 12.0-16.0 1 Hematocrit 38.9 % 36.0-47.0 1 MCV 88.8 fL 80.0-97.0 1 MCH 31.6 pg 27.0-32.0 1 MCHC 35.6 g/dL 32.0-36.0 1 RDW 13.2 % 11.5-14.5 1 PLT Count 139 K/ul Low 140-400 1 MPV 8.1 FL 7.1-10.7 1 Protime 07/03/2017 Prothrombin Time 11.0 sec 10.2-12.0 1 Inr 1.1 % Low 2.0-3.0 1 Comprehensive Met Panel-FCMG 07/03/2017 Sodium 130 mmol/L Low 135-146 1, 2 Potassium 3.4 mmol/L Low 3.5-5.2 1 Chloride# 94 mmol/L Low 97-110 1, 3 Carbon Dioxide 27 mmol/L 24-34 1 Glucose 210 mg/dL High 70-105 1 BUN 7 mg/dL 6-26 1 Creatinine 0.6 mg/dL 0.5-1.4 1 Calcium 9.0 mg/dL 8.5-10.2 1 Total Protein 6.7 g/dL 6.0-8.0 1 Albumin 4.4 g/dL 3.6-4.9 1 Globulin 2.3 g/dL 2.0-3.5 1 A/G Ratio 1.9 Ratio 1.0-2.2 1 Total Bilirubin 0.4 mg/dL 0.1-1.3 1 Alkaline Phosphatase 42 U/L 24-140 1 Alt 26 U/L 3-42 1 Ast 24 U/L 8-42 1 [place] Egfr >60 >60 1, 4 Non [place] Egfr >60 >60 1, 5 Anion Gap 9 mmol/L 5-15 1, 6 Hemoglobin A1c 07/03/2017 Hemoglobin A1c 6.3 % High 4.1-5.9 1 Estimated Average Glucose Calc 134 mg/dL 71-140 1 Reflex Manual Differential 07/03/2017 Neutrophils 28 % Low 35-75 1 Band 0 % 0-11 1 Lymphocytes 49 % 16-52 1 Monocytes 11 % High 0-8 1 Eosinophils 8 % High 0-5 1 Basophils 4 % 0-4 1 Abs Neutrophils# 1.0 K/ul Low 1.8-7.7 1 Abs Lymphocytes# 1.7 K/ul 1.2-4.8 1 Abs Monocytes# 0.4 K/ul 0.0-0.8 1 Abs Eosinophils# 0.3 K/ul 0.0-0.5 1 Abs Basophils# 0.1 K/ul 0.0-0.3 1 Abs BandCells# 0.0 K/ul 0.0-1.2 1 Platelet Estimate NORMAL Normal 1 RBC Morphology NORMAL Normal 1 Laboratory test finding 07/03/2017 Aptt 22.0 s (22.0-32.6) 7 Oxcarbazepine 22 ug/mL 8 Hemoglobin A1c 03/31/2017 Hemoglobin A1c 6.4 % High 4.1-5.9 Estimated Average Glucose Calc 137 71-140 CBC With Auto Diff 03/31/2017 WBC 4.5 K/uL 4.1-11.0 RBC 4.55 M/uL 4.00-5.40 Hemoglobin 14.4 gm/dL 12.0-16.0 Hematocrit 41.2 % 36.0-47.0 MCV 90.5 fL 80.0-97.0 MCH 31.6 pg 27.0-32.0 MCHC 34.9 g/dL 32.0-36.0 RDW 13.2 % 11.5-14.5 PLT Count 177 K/ul 140-400 MPV 7.7 FL 7.1-10.7 Neutrophil 37.1 % 35.0-75.0 Lymphocyte 44.1 % 16.0-52.0 Monocyte 11.5 % High 2.0-10.0 Eosinophil 3.5 % 0.0-5.0 Basophil 3.8 % 0.0-4.0 Abs Neutrophils 1.7 K/uL Low 2.1-8.0 Abs Lymphocytes 2.0 K/uL 0.8-5.5 Abs Monocytes 0.5 K/uL 0.1-1.0 Abs Eosinophils 0.2 K/uL 0.0-0.5 Abs Basophils 0.2 K/uL 0.0-0.3 Basic (BMP) 03/31/2017 Sodium 136 mmol/L 135-146 9 Potassium 4.0 mmol/L 3.5-5.2 Chloride# 96 mmol/L Low 97-110 10 Carbon Dioxide 28 mmol/L 24-34 Glucose 103 mg/dL 70-105 Creatinine 0.6 mg/dL 0.5-1.4 Calcium 9.6 mg/dL 8.5-10.2 Non [place] Egfr >60 >60 11 [place] Egfr >60 >60 12 Anion Gap 12 mmol/L 7-16 13 BUN 14 mg/dL 6-26 Laboratory test finding 03/31/2017 TSH 0.70 uIU/mL 0.35-4.94 Lipid Treatment 03/31/2017 Cholesterol 236 mg/dL High 50-199 Triglycerides 312 mg/dL High 30-200 HDL 52 mg/dL 35-85 14 Chol/ HDL Ratio 4.6 ratio 3.7-5.6 VLDL 62 mg/dL High 2-29 LDL (Calc) 122 mg/dL High 20-99 15 Alt 27 U/L 3-42 Ast 20 U/L 8-42 CBC With Auto Diff 01/16/2017 WBC 4.0 K/uL Low 4.1-11.0 RBC 4.43 M/uL 4.00-5.40 Hemoglobin 13.8 gm/dL 12.0-16.0 Hematocrit 40.3 % 36.0-47.0 MCV 90.9 fL 80.0-97.0 MCH 31.2 pg 27.0-32.0 MCHC 34.3 g/dL 32.0-36.0 RDW 13.2 % 11.5-14.5 PLT Count 169 K/ul 140-400 Neutrophil 44.5 % 35.0-75.0 Lymphocyte 35.2 % 16.0-52.0 Monocyte 12.2 % High 2.0-10.0 Eosinophil 5.6 % High 0.0-5.0 Basophil 2.5 % 0.0-4.0 Abs Neutrophils 1.8 K/uL Low 2.1-8.0 Abs Lymphocytes 1.4 K/uL 0.8-5.5 Abs Monocytes 0.5 K/uL 0.1-1.0 Abs Eosinophils 0.2 K/uL 0.0-0.5 Abs Basophils 0.1 K/uL 0.0-0.3 Basic (BMP) 01/16/2017 Sodium 129 mmol/L Low 135-146 16 Potassium 4.0 mmol/L 3.5-5.2 Chloride# 91 mmol/L Low 97-110 17 Carbon Dioxide 28 mmol/L 24-34 Glucose 132 mg/dL High 70-105 BUN 7 mg/dL 6-26 Creatinine 0.7 mg/dL 0.5-1.4 Calcium 9.2 mg/dL 8.5-10.2 Non [place] Egfr >60 >60 18 [place] Egfr >60 >60 19 Anion Gap 10 mmol/L 7-16 20 Hemoglobin A1c 12/26/2016 Est Average Glucose 143 mg/dL 21 Hemoglobin A1c @ 6.6 % High (4.0-6.0) Manual Differential 12/26/2016 Neut % 43.0 % (35.0-75.0) Lymph % 42.0 % (16.0-52.0) [place] % 11.0 % High (0.0-8.0) Eos % 4.0 % (0.0-5.0) Neut # 1.4 10*3/uL Low (1.8-7.7) Lymph # 1.4 10*3/uL (1.2-4.8) [place] # 0.4 10*3/uL (0.0-0.8) Eos # 0.1 10*3/uL (0.0-0.5) [place] 1+ Basic (BMP) 12/26/2016 Sodium 129 Electrolytes <SEE NOTE> mmol/L Low 135- 146 22 Potassium 3.8 mmol/L 3.5-5.2 Chloride# 92 mmol/L Low 97-110 23 Carbon Dioxide 27 mmol/L 24-34 Glucose 125 mg/dL High 70-105 BUN 7 mg/dL 6- Creatinine 0.6 mg/dL 0.5-1.4 Calcium 9.1 mg/dL 8.5-10.2 Non [place] Egfr >60 >60 24 [place] Egfr >60 >60 25 Anion Gap 10 mmol/L 7-16 26 Laboratory test finding 12/26/2016 TSH 0.69 uIU/mL 0.35-4.94 CBC Without Diff 12/26/2016 WBC 3.3 10*3/uL Low (4.1-11.0) RBC 4.65 10*6/uL (4.00-5.40) HGB 14.2 g/dL (12.0-16.0) HCT 41.9 % (36.0-47.0) MCV 90.1 fL (80.0-95.0) MCH 30.6 pg (27.0-32.0) MCHC 34.0 g/dL (32.0-36.0) RDW 13.3 % (10.5-14.5) PLT 35 10*3/uL Low (150-450) 27 MPV 8.6 fL (7.1-10.7) Lipid Treatment 12/26/2016 Cholesterol 224 mg/dL High 50-199 Triglycerides 280 mg/dL High 30-200 HDL 56 mg/dL 35-85 28 Chol/ HDL Ratio 4.0 ratio 3.7-5.6 VLDL 56 mg/dL High 2-29 LDL (Calc) 113 mg/dL High 20-99 29 Alt 55 U/L High 3-42 Ast 45 U/L High 8-42 Hemoglobin A1c 10/04/2016 Hemoglobin A1c 7.2 % High 4.1-5.9 Estimated Average Glucose Calc 160 High 71-140 Laboratory test finding 10/04/2016 Oxcarbazepine 23 ug/mL 30 CBC With Auto Diff 10/04/2016 WBC 4.3 K/uL 4.1-11.0 RBC 4.49 M/uL 4.00-5.40 Hemoglobin 14.0 gm/dL 12.0-16.0 Hematocrit 40.8 % 36.0-47.0 MCV 90.8 fL 80.0-97.0 MCH 31.2 pg 27.0-32.0 MCHC 34.3 g/dL 32.0-36.0 RDW 13.1 % 11.5-14.5 PLT Count 159 K/ul 140-400 Neutrophil 50.4 % 35.0-75.0 Lymphocyte 30.2 % 16.0-52.0 Monocyte 10.3 % High 2.0-10.0 Eosinophil 6.7 % High 0.0-5.0 Basophil 2.4 % 0.0-4.0 Abs Neutrophils 2.2 K/uL 2.1-8.0 Abs Lymphocytes 1.3 K/uL 0.8-5.5 Abs Monocytes 0.4 K/uL 0.1-1.0 Abs Eosinophils 0.3 K/uL 0.0-0.5 Abs Basophils 0.1 K/uL 0.0-0.3 Basic (BMP) 10/04/2016 Sodium 138 mmol/L 135-146 31 Potassium 3.8 mmol/L 3.5-5.2 Chloride# 97 mmol/L 97-110 32 Carbon Dioxide 29 mmol/L 24-34 Glucose 150 mg/dL High 70-105 BUN 6 mg/dL 6-26 Creatinine 0.7 mg/dL 0.5-1.4 Calcium 9.3 mg/dL 8.5-10.2 Non [place] Egfr >60 >60 33 [place] Egfr >60 >60 34 Anion Gap 16 mmol/L 7-16 35 Laboratory test finding 10/04/2016 TSH 0.85 uIU/mL 0.35-4.94 Lipid Treatment 10/04/2016 Cholesterol 244 mg/dL High 50-199 Triglycerides 390 Specimen Sli <SEE NOTE> mg/dL High 30-200 36 HDL 56 mg/dL 35-85 37 Chol/ HDL Ratio 4.4 ratio 3.7-5.6 VLDL 78 mg/dL High 2-29 LDL (Calc) 110 mg/dL High 20-99 38 Alt 33 U/L 3-42 Ast 25 U/L 8-42 Laboratory test 06/28/2016 Pap Smear Thin SEE NOTE 39 finding Prep Laboratory test 06/28/2016 HPV Laboratory Allia 40 finding <SEE NOTE> Laboratory test 06/17/2016 Hemoglobin A1c 6.8 % High 4.1-5.9 finding Comprehensive 06/17/2016 Sodium 134 mmol/L 134-142 Metabolic (CMP) Potassium 4.1 mmol/L 3.5-5.2 Chloride 98 mmol/L 97-109 Carbon Dioxide 27 mmol/L 24-34 Glucose 159 mg/dL High 70-105 BUN 10 mg/dL 6-26 Creatinine 0.7 mg/dL 0.5-1.4 Calcium 9.5 mg/dL 8.5-10.2 Total Protein 7.1 g/dL 6.0-8.0 Albumin 4.2 g/dL 3.6-4.9 Globulin 2.9 g/dL 2.0-3.5 A/G Ratio 1.4 Ratio 1.0-2.2 Total Bilirubin 0.6 mg/dL 0.1-1.3 Alkaline Phosphatase 40 U/L 24-140 Alt 37 U/L 3-42 Ast 29 U/L 8-42 Anion Gap 13 mmol/L 6-14 [place] Egfr >60 >60 41 Non [place] Egfr >60 >60 42 Basic ([facility]) 04/17/2016 Sodium 133 mmol/L Low 134-142 Potassium 4.3 mmol/L 3.5-5.2 Chloride 97 mmol/L 97-109 Carbon Dioxide 31 mmol/L 24-34 Glucose 135 mg/dL High 70-105 BUN 18 mg/dL 6-26 Creatinine 0.7 mg/dL 0.5-1.4 Calcium 9.2 mg/dL 8.5-10.2 Anion Gap 9 mmol/L 6-14 Non [place] Egfr >60 >60 43 [place] Egfr >60 >60 44 Basic (BMP) 03/21/2016 Sodium 127 mmol/L Low 134-142 Potassium 3.9 mmol/L 3.5-5.2 Chloride 92 mmol/L Low 97-109 Carbon Dioxide 28 mmol/L 24-34 Glucose 176 mg/dL High 70-105 BUN 10 mg/dL 6-26 Creatinine 0.6 mg/dL 0.5-1.4 Calcium 9.3 mg/dL 8.5-10.2 Anion Gap 11 mmol/L 6-14 Non [place] Egfr >60 >60 45 [place] Egfr >60 >60 46 Laboratory test finding 03/14/2016 Hemoglobin A1c 6.4 % High 4.1-5.9 Lipid 03/14/2016 Cholesterol 238 mg/dL High 50-199 Triglycerides 425 mg/dL High 30-200 HDL 47 mg/dL 35-85 47 Chol/ HDL Ratio 5.1 ratio 3.7-5.6 Laboratory test finding 03/14/2016 Direct LDL 88 mg/dL 20-99 48 Comprehensive Metabolic (CMP) 03/14/2016 Sodium 128 mmol/L Low 134-142 Potassium 4.9 mmol/L 3.5-5.2 Chloride 93 mmol/L Low 97-109 Carbon Dioxide 27 mmol/L 24-34 Glucose 148 mg/dL High 70-105 BUN 9 mg/dL 6-26 Creatinine 0.5 mg/dL 0.5-1.4 Calcium 9.3 mg/dL 8.5-10.2 Total Protein 6.6 g/dL 6.0-8.0 Albumin 4.0 g/dL 3.6-4.9 Globulin 2.6 g/dL 2.0-3.5 A/G Ratio 1.5 Ratio 1.0-2.2 Total Bilirubin 0.5 mg/dL 0.1-1.3 Alkaline Phosphatase 36 U/L 24-140 Alt 33 U/L 3-42 Ast 22 U/L 8-42 Anion Gap 13 mmol/L 6-14 [place] Egfr >60 >60 49 Non [place] Egfr >60 >60 50 Lipid 12/19/2015 Cholesterol 269 mg/dL High 50-199 Triglycerides 319 mg/dL High 30-200 HDL 50 mg/dL 35-85 51 Chol/ HDL Ratio 5.4 ratio 3.7-5.6 VLDL 64 mg/dL High 2-29 LDL (Calc) 155 mg/dL High 20-99 52 Comprehensive Metabolic 12/19/2015 Sodium 134 Electrolytes <SEE 134-142 53 (CMP) NOTE> mmol/L Potassium 3.9 mmol/L 3.5-5.2 Chloride 93 mmol/L Low 97-109 Carbon Dioxide 30 mmol/L 24-34 Glucose 163 mg/dL High 70-105 BUN 10 mg/dL 6-26 Creatinine 0.7 mg/dL 0.5-1.4 Calcium 9.6 mg/dL 8.5-10.2 Total Protein 8.0 g/dL 6.0-8.0 Albumin 4.3 g/dL 3.6-4.9 Globulin 3.7 g/dL High 2.0-3.5 A/G Ratio 1.2 Ratio 1.0-2.2 Total Bilirubin 0.7 mg/dL 0.1-1.3 Alkaline Phosphatase 45 U/L 24-140 Alt 54 U/L High 3-42 Ast 63 U/L High 8-42 Anion Gap 15 mmol/L High 6-14 [place] Egfr >60 >60 54 Non [place] Egfr >60 >60 55 CBC With Auto Diff 12/19/2015 WBC 4.7 K/uL 4.1-11.0 RBC 4.65 M/uL 4.00-5.40 Hemoglobin 14.5 gm/dL 12.0-16.0 Hematocrit 41.6 % 36.0-47.0 MCV 89.4 fL 80.0-97.0 MCH 31.2 pg 27.0-32.0 MCHC 34.8 g/dL 32.0-36.0 RDW 13.4 % 11.5-14.5 PLT Count 175 K/ul 140-400 Neutrophil 60.9 % 35.0-75.0 Lymphocyte 24.1 % 16.0-52.0 Monocyte 10.8 % High 2.0-10.0 Eosinophil 2.7 % 0.0-5.0 Basophil 1.5 % 0.0-4.0 Abs Neutrophils 2.9 K/uL 2.1-8.0 Abs Lymphocytes 1.1 K/uL 0.8-5.5 Abs Monocytes 0.5 K/uL 0.1-1.0 Abs Eosinophils 0.1 K/uL 0.0-0.5 Abs Basophils 0.1 K/uL 0.0-0.3 Laboratory test 12/19/2015 Hemoglobin A1c 6.9 % High 4.1-5.9 finding Laboratory test 10/18/2015 Urine Culture Microbiology res <SEE 56 finding NOTE> Laboratory test 07/13/2015 Hemoglobin A1c 7.2 % High 4.1-5.9 finding Laboratory test 07/13/2015 TSH 0.93 uIU/mL 0.35-4.94 finding CBC With Auto Diff 07/13/2015 WBC 3.5 K/uL Low 4.1-11.0 RBC 4.44 M/uL 4.00-5.40 Hemoglobin 13.5 gm/dL 12.0-16.0 Hematocrit 40.8 % 36.0-47.0 MCV 91.7 fL 80.0-97.0 MCH 30.4 pg 27.0-32.0 MCHC 33.1 g/dL 32.0-36.0 RDW 13.6 % 11.5-14.5 PLT Count 147 K/ul 140-400 Neutrophil 48.4 % 35.0-75.0 Lymphocyte 30.0 % 16.0-52.0 Monocyte 9.7 % 2.0-10.0 Eosinophil 6.6 % High 0.0-5.0 Basophil 5.3 % High 0.0-4.0 Abs Neutrophils 1.7 K/uL Low 2.1-8.0 Abs Lymphocytes 1.1 K/uL 0.8-5.5 Abmon 0.3 K/uL 0.1-1.0 Abs Eosinophils 0.2 K/uL 0.0-0.5 Abs Basophils 0.2 K/uL 0.0-0.3 Basic (BMP) 07/13/2015 Sodium 136 mmol/L 134-142 Potassium 3.9 mmol/L 3.5-5.2 Chloride 100 mmol/L 97-109 Carbon Dioxide 26 mmol/L 24-34 Glucose 166 mg/dL High 70-105 BUN 15 mg/dL 6- Creatinine 0.7 mg/dL 0.5-1.4 Calcium 9.2 mg/dL 8.5-10.2 Anion Gap 14 mmol/L 6-14 Non [place] Egfr >60 >60 57 [place] Egfr >60 >60 58 Lipid Treatment 07/13/2015 Cholesterol 220 mg/dL High 50-199 Triglycerides 333 mg/dL High 30-200 HDL 38 mg/dL 35-85 59 Chol/ HDL Ratio 5.8 ratio High 3.7-5.6 VLDL 67 mg/dL High 2-29 LDL (Calc) 115 mg/dL High 20-99 60 Alt 26 U/L 3-42 Ast 22 U/L 8-42 Basic (BMP) 03/30/2015 Sodium 136 mmol/L 134-142 Potassium 4.0 mmol/L 3.5-5.2 Chloride 98 mmol/L 97-109 Carbon Dioxide 30 mmol/L 24-34 Glucose 155 mg/dL High 70-105 BUN 18 mg/dL 6-26 Creatinine 0.7 mg/dL 0.5-1.4 Calcium 9.4 mg/dL 8.5-10.2 Anion Gap 12 mmol/L 6-14 Non [place] Egfr >60 >60 61 [place] Eg[place] >60 >60 62 Laboratory test finding 03/30/2015 TSH 0.65 uIU/mL 0.35-4.94 Hemoglobin A1c 6.9 % High 4.1-5.9 CBC With Auto Diff 12/28/2014 WBC 5.3 K/uL 4.1-11.0 RBC 4.21 M/uL 4.00-5.40 Hemoglobin 13.2 gm/dL 12.0-16.0 Hematocrit 38.6 % 36.0-47.0 MCV 91.6 fL 80.0-97.0 MCH 31.4 pg 27.0-32.0 MCHC 34.3 g/dL 32.0-36.0 RDW 13.5 % 11.5-14.5 PLT Count 165 K/ul 140-400 Neutrophil 60.8 % 35.0-75.0 Lymphocyte 23.5 % 16.0-52.0 Monocyte 9.1 % 2.0-10.0 Eosinophil 5.7 % High 0.0-5.0 Basophil 0.9 % 0.0-4.0 Abs Neutrophils 3.2 K/uL 2.1-8.0 Abs Lymphocytes 1.2 K/uL 0.8-5.5 Abmon 0.5 K/uL 0.1-1.0 Abs Eosinophils 0.3 K/uL 0.0-0.5 Abs Basophils 0.0 K/uL 0.0-0.3 Basic (BMP) 12/28/2014 Sodium 133 mmol/L Low 134-142 Potassium 3.9 mmol/L 3.5-5.2 Chloride 94 mmol/L Low 97-109 Carbon Dioxide 28 mmol/L 24-34 Glucose 122 mg/dL High 70-105 BUN 16 mg/dL 6-26 Creatinine 0.9 mg/dL 0.5-1.4 Calcium 9.0 mg/dL 8.5-10.2 Anion Gap 15 mmol/L High 6-14 Non [place] Egfr >60 >60 63 [place] Eg[place] >60 >60 64 Laboratory test finding 12/28/2014 TSH 1.02 uIU/mL 0.35-4.94 Lipid Treatment 12/28/2014 Cholesterol 195 mg/dL 50-199 Triglycerides 252 mg/dL High 30-200 HDL 43 mg/dL 35-85 65 Chol/ HDL Ratio 4.5 ratio 3.7-5.6 VLDL 50 mg/dL High 2-29 LDL (Calc) 102 mg/dL High 20-99 66 Alt 18 U/L 3-42 Ast 15 U/L 8-42 Laboratory test 12/28/2014 Oxcarbazepine 34 ug/mL 10-35 67 finding (Trileptal) Laboratory test 12/26/2014 Urine Culture Microbiology res <SEE 68 finding NOTE> Urine Microscopic 08/23/2014 Urine WBC 1.7 [HPF] (0-8) Only -RL Urine RBC 1.5 [HPF] (0-3) Epithelial Cells NEGATIVE [HPF] (Neg) Bacteria NEGATIVE [HPF] (Neg) Hyaline Casts 0.00 [LPF] (0-5) 69 Laboratory test 08/23/2014 Urine Culture Microbiology res <SEE 70 finding NOTE> CBC With Auto Diff 07/27/2014 WBC 5.1 K/uL 4.1-11.0 RBC 4.19 M/uL 4.00-5.40 Hemoglobin 13.2 gm/dL 12.0-16.0 Hematocrit 38.9 % 36.0-47.0 MCV 92.8 fL 80.0-97.0 MCH 31.6 pg 27.0-32.0 MCHC 34.0 g/dL 32.0-36.0 RDW 13.3 % 11.5-14.5 PLT Count 148 K/ul 140-400 Neutrophil 52.6 % 35.0-75.0 Lymphocyte 31.8 % 16.0-52.0 Monocyte 8.3 % 2.0-10.0 Eosinophil 5.6 % High 0.0-5.0 Basophil 1.7 % 0.0-4.0 Abs Neutrophils 2.7 K/uL 2.1-8.0 Abs Lymphocytes 1.6 K/uL 0.8-5.5 Abmon 0.4 K/uL 0.1-1.0 Abs Eosinophils 0.3 K/uL 0.0-0.5 Abs Basophils 0.1 K/uL 0.0-0.3 Comprehensive Metabolic (CMP) 07/27/2014 Sodium 136 mmol/L 134-142 Potassium 4.3 mmol/L 3.5-5.2 Chloride 99 mmol/L 97-109 Carbon Dioxide 28 mmol/L 24-34 Glucose 132 mg/dL High 70-105 BUN 24 mg/dL 6-26 Creatinine 0.7 mg/dL 0.5-1.4 Calcium 9.3 mg/dL 8.5-10.2 Total Protein 7.6 g/dL 6.0-8.0 Albumin 4.1 g/dL 3.6-4.9 Globulin 3.5 g/dL 2.0-3.5 A/G Ratio 1.2 Ratio 1.0-2.2 Total Bilirubin 0.3 mg/dL 0.1-1.3 Alkaline Phosphatase 42 U/L 24-140 Alt 14 U/L 3-42 Ast 13 U/L 8-42 Anion Gap 13 mmol/L 6-14 [place] Egfr >60 >60 71 Non [place] Egfr >60 >60 72 Laboratory test finding 07/27/2014 TSH 1.20 uIU/mL 0.34-5.60 Laboratory test finding 03/14/2014 Culture Urine See Note 73 Laboratory test finding 02/24/2014 Urine Amorph Sediment Moderate Negative Urine Bacteria Moderate None Seen High Urine Bilirubin - Dipstick Negative Negative Urine Blood Small High Negative Urine Clarity SL Cloudy Clear Urine Color Yellow Yellow Urine Culture See Note 74 Urine Epithelial Cells None Seen None Seen /lpf Urine Glucose - Dipstick Negative mg/dL Negative Urine Ketone Negative mg/dL Negative Urine Leuk Esterase Moderate High Negative Urine Nitrite - Dipstick Negative Negative Urine PH 7.0 6.5-7.5 Urine Protein - Dipstick Negative mg/dL Negative Urine RBC 5-10 rbc/hpf 0-7 Urine Screen See Note 75 Urine Specific [place] 1.015 1.010-1.030 Urine Trip Phos Crystals Many None Seen Urine Urobilinogen - Dipstick 0.2 E.U./dL 0.2-1.0 Urine WBC 30-50 wbc/hpf High 0-7 Laboratory test finding 12/01/2013 % A1c 5.7 % 4.1-6.5 % Baso. 2.5 % High 0.0-2.0 % Eos. 4.1 % High 0.0-4.0 % Lymph 36 % 20-44 % [place] 8.9 % 2.0-10.0 % Js 49 % Low 50-70 Absolute Baso. 0.1 K/ul 0.0-0.3 Absolute Eos. 0.2 K/ul 0.0-0.5 Absolute Lymph. 1.8 K/ul 0.8-4.[address] [place]. 0.5 K/ul 0.1-1.0 Absolute Js. 2.52 K/ul 2.05-7.63 Alt 12.0 U/L 9.0-52.0 Ast 12.0 U/L Low 14.0-36.0 BUN 11.0 mg/dL 7.0-18.0 BUN/Creat Ratio 15.7 ratio 12.0-20.0 Calcium 9.2 mg/dL 8.7-10.5 Chloride 100.0 mmol/L 98.0-107.0 Co2 27.0 mmol/L 22.0-30.0 Creatinine-Serum 0.7 mg/dL 0.7-1.2 Glucose 101.0 mg/dL 75.0-110.0 HCT 40.4 % 37.0-51.0 HGB 13.8 Gm/dl 12.0-16.0 MCH 29.6 pg 26.0-32.0 MCHC 34.2 g/dL 31.0-36.0 MCV 86.5 Fl 80.0-97.0 MPV 6.2 fL 6.0-10.0 PLT 172 K/ul 140-440 Potasium 4.0 mmol/L 3.6-5.0 RBC 4.7 M/ul 4.2-6.3 RDW 12.8 % 11.5-14.5 Sodium 137.0 mmil/L 137.0-145.0 TSH 0.72 uIU/ml 0.50-6.00 Vitamin D 24.7 ng/mL Low 30.0-100.0 WBC 5.1 K/ul 4.1-10.9 eGFR 90.7 Lipid Panel 12/01/2013 Chol/HDL Ratio 5.2 ratio Cholesterol 224.0 mg/dL High 50.0-199.0 HDL 43.0 mg/dL 29.0-86.0 LDL, Calculated 131.6 mg/dL High 20.0-129.0 Triglycerides 247.0 mg/dL 30.0-249.0 vLDL 49.4 ng/dL Laboratory test finding 09/21/2013 Alb/Glob 0.8 ratio Albumin 2.9 g/dL Low 3.5-5.0 Alkaline Phosphatase 59 U/L 50-136 Anion Gap 13 mEq/L 8-16 BUN 10 mg/dL 5-23 BUN/Creat 16.6 ratio Bilirubin,Total 0.2 mg/dL 0.2-1.2 Calcium 8.6 mg/dL 8.5-10.1 Carbon Dioxide 28 mEq/L 18-29 Chloride 107 mmol/L 98-107 Creatinine 0.6 mg/dL 0.5-1.4 Globulin 3.7 g/dL 1.9-4.3 Glom Filtration Rate, Estimate >60 mL/min >60 Glucose 126 mg/dL High 76-115 Glycohemoglobin (A1c) 6.4 % High 4.8-6.0 76 Hematocrit 35.6 % Low 36.0-46.1 Hemoglobin 12.1 gm/dL 11.6-15.8 If >60 mL/min >60 77 Mean Cell Volume 91.5 fl 80.9-99.0 Mean Corpuscular HGB 31.1 pg 25.9-32.7 Mean Corpuscular HGB Conc 34.0 g/dL 30.8-34.3 Mean Platelet Volume 9.3 fL 8.9-12.4 Platelet Count 144 K/uL Low 155-360 Potassium 3.5 mmol/L 3.5-5.1 Red Blood Count 3.89 M/uL Low 3.90-5.40 Red Cell Distri Width %CV 14.6 % High 11.7-14.4 SGPT/Alt 20 U/L Low 30-65 Sgot/Ast 12 U/L Low 16-40 Sodium 144 mmol/L 136-145 Thyroid Stim Hormone 1.91 uIU/mL 0.49-4.67 Total Protein 6.6 g/dL 6.3-8.0 Vitamin B12 916 pg/mL High 200-900 78 Vitamin D,25-Hydroxy 16.7 ng/mL Low 30.0-100.0 79 White Blood Count 3.6 K/uL 3.1-10.7 eAG 137 mg/dL Laboratory test finding 08/28/2013 Alb/Glob 0.9 ratio Albumin 4.3 g/dL 3.5-5.0 Alkaline Phosphatase 63 U/L 50-136 Anion Gap 12 mEq/L 8-16 BUN 24 mg/dL High 5-23 BUN/Creat 30.0 ratio Bilirubin,Total 0.5 mg/dL 0.2-1.2 Calcium 9.4 mg/dL 8.5-10.1 Carbon Dioxide 29 mEq/L 18-29 Chloride 98 mmol/L 98-107 Creatinine 0.8 mg/dL 0.5-1.4 Globulin 4.6 g/dL High 1.9-4.3 Glom Filtration Rate, Estimate >60 mL/min >60 Glucose 141 mg/dL High 76-115 Hematocrit 44.3 % 36.0-46.1 Hemoglobin 15.3 gm/dL 11.6-15.8 If >60 mL/min >60 80 Mean Cell Volume 86.7 fl 80.9-99.0 Mean Corpuscular HGB 29.9 pg 25.9-32.7 Mean Corpuscular HGB Conc 34.5 g/dL High 30.8-34.3 Mean Platelet Volume 10.1 fL 8.9-12.4 Platelet Count 188 K/uL 155-360 Potassium 2.9 mmol/L Low 3.5-5.1 Red Blood Count 5.11 M/uL 3.90-5.40 Red Cell Distri Width %CV 14.0 % 11.7-14.4 SGPT/Alt 32 U/L 30-65 Sgot/Ast 24 U/L 16-40 Sodium 136 mmol/L 136-145 Thyroid Stim Hormone 0.88 uIU/mL 0.49-4.67 Total Protein 8.9 g/dL High 6.3-8.0 White Blood Count 10.1 K/uL 3.1-10.7 Urine Screen See Note 81 Laboratory test finding 08/28/2013 Urine Screen See Note 82 Laboratory test finding 07/27/2013 Culture Urine See Note 83 % A1c 5.7 % 4.1-6.5 % Baso. 1.7 % 0.0-2.0 % Eos. 6.4 % High 0.0-4.0 % Lymph 37 % 20-44 % [place] 9.7 % 2.0-10.0 % Js 45 % Low 50-70 A/G Ratio 1.1 ratio Low 1.6-2.2 Absolute Baso. 0.1 K/ul 0.0-0.3 Absolute Eos. 0.3 K/ul 0.0-0.5 Absolute Lymph. 1.6 K/ul 0.8-4.[address] [place]. 0.4 K/ul 0.1-1.0 Absolute Js. 2.01 K/ul Low 2.05-7.63 Albumin 4.1 g/dL 3.5-5.0 Alk. Phos. 57.0 U/L 30.0-126.0 Alt 22.0 U/L 9.0-52.0 Anion Gap 15.0 mmol/L 10.0-20.0 Ast 18.0 U/L 14.0-36.0 BUN 11.0 mg/dL 7.0-18.0 BUN/Creat Ratio 13.8 ratio 12.0-20.0 C-Reactive Protein,Quant 3.7 mg/L 0.0-4.9 Calcium 9.4 mg/dL 8.7-10.5 Chloride 96.0 mmol/L Low 98.0-107.0 Co2 29.0 mmol/L 22.0-30.0 Creatinine-Serum 0.8 mg/dL 0.7-1.2 Globulin 3.6 g/dL 2.7-4.3 Glucose 165.0 mg/dL High 75.0-110.0 HCT 43.6 % 37.0-51.0 HGB 14.4 Gm/dl 12.0-16.0 MCH 29.8 pg 26.0-32.0 MCHC 32.9 g/dL 31.0-36.0 MCV 90.6 Fl 80.0-97.0 MPV 7.1 fL 6.0-10.0 Oxcarbazepine (Trileptal) 35 ug/mL 10-35 84 PLT 176 K/ul 140-440 Potasium 3.9 mmol/L 3.6-5.0 RBC 4.8 M/ul 4.2-6.3 RDW 13.1 % 11.5-14.5 Sodium 140.0 mmil/L 137.0-145.0 TSH 1.22 uIU/ml 0.50-6.00 Total Bilirubin 0.6 mg/dL 0.2-1.3 Total Protein 7.7 g/dL 6.3-8.2 WBC 4.4 K/ul 4.1-10.9 eGFR 82.1 mi/minper1.73 85 Laboratory test finding 07/27/2013 % A1c 5.7 % 4.1-6.5 % Baso. 1.7 % 0.0-2.0 % Eos. 6.4 % High 0.0-4.0 % Lymph 37 % 20-44 % [place] 9.7 % 2.0-10.0 % Js 45 % Low 50-70 A/G Ratio 1.1 ratio Low 1.6-2.2 Absolute Baso. 0.1 K/ul 0.0-0.3 Absolute Eos. 0.3 K/ul 0.0-0.5 Absolute Lymph. 1.6 K/ul 0.8-4.[address] [place]. 0.4 K/ul 0.1-1.0 Absolute Js. 2.01 K/ul Low 2.05-7.63 Albumin 4.1 g/dL 3.5-5.0 Alk. Phos. 57.0 U/L 30.0-126.0 Alt 22.0 U/L 9.0-52.0 Anion Gap 15.0 mmol/L 10.0-20.0 Ast 18.0 U/L 14.0-36.0 BUN 11.0 mg/dL 7.0-18.0 BUN/Creat Ratio 13.8 ratio 12.0-20.0 C-Reactive Protein,Quant 3.7 mg/L 0.0-4.9 Calcium 9.4 mg/dL 8.7-10.5 Chloride 96.0 mmol/L Low 98.0-107.0 Co2 29.0 mmol/L 22.0-30.0 Creatinine-Serum 0.8 mg/dL 0.7-1.2 Globulin 3.6 g/dL 2.7-4.3 Glucose 165.0 mg/dL High 75.0-110.0 HCT 43.6 % 37.0-51.0 HGB 14.4 Gm/dl 12.0-16.0 MCH 29.8 pg 26.0-32.0 MCHC 32.9 g/dL 31.0-36.0 MCV 90.6 Fl 80.0-97.0 MPV 7.1 fL 6.0-10.0 Oxcarbazepine (Trileptal) 35 ug/mL 10-35 86 PLT 176 K/ul 140-440 Potasium 3.9 mmol/L 3.6-5.0 RBC 4.8 M/ul 4.2-6.3 RDW 13.1 % 11.5-14.5 Sodium 140.0 mmil/L 137.0-145.0 TSH 1.22 uIU/ml 0.50-6.00 Total Bilirubin 0.6 mg/dL 0.2-1.3 Total Protein 7.7 g/dL 6.3-8.2 WBC 4.4 K/ul 4.1-10.9 eGFR 82.1 mi/minper1.73 87 Laboratory test finding 05/28/2013 Culture Urine See Note 88 Cytology Pap See Note 89 % A1c 5.9 % 4.1-6.5 % Baso. 2.9 % High 0.0-2.0 % Eos. 5.8 % High 0.0-4.0 % Lymph 34 % 20-44 % [place] 8.1 % 2.0-10.0 % Js 50 % 50-70 Absolute Baso. 0.1 K/ul 0.0-0.3 Absolute Eos. 0.2 K/ul 0.0-0.5 Absolute Lymph. 1.2 K/ul 0.8-4.[address] [place]. 0.3 K/ul 0.1-1.0 Absolute Js. 1.78 K/ul Low 2.05-7.63 Alt 17.0 U/L 9.0-52.0 Ast 15.0 U/L 14.0-36.0 BUN 10.0 mg/dL 7.0-18.0 BUN/Creat Ratio 12.5 ratio 12.0-20.0 Calcium 9.8 mg/dL 8.7-10.5 Chloride 99.0 mmol/L 98.0-107.0 Co2 27.0 mmol/L 22.0-30.0 Creatinine-Serum 0.8 mg/dL 0.7-1.2 Glucose 127.0 mg/dL High 75.0-110.0 HCT 42.7 % 37.0-51.0 HGB 13.9 Gm/dl 12.0-16.0 MCH 29.1 pg 26.0-32.0 MCHC 32.6 g/dL 31.0-36.0 MCV 89.4 Fl 80.0-97.0 MPV 7.5 fL 6.0-10.0 PLT 140 K/ul 140-440 Potasium 3.7 mmol/L 3.6-5.0 RBC 4.8 M/ul 4.2-6.3 RDW 13.2 % 11.5-14.5 Sodium 140.0 mmil/L 137.0-145.0 WBC 3.6 K/ul Low 4.1-10.9 eGFR 77.8 Lipid Panel 05/28/2013 Chol/HDL Ratio 5.7 ratio Cholesterol 267.0 mg/dL High 50.0-199.0 HDL 47.0 mg/dL 29.0-86.0 LDL, Calculated 163.4 mg/dL High 20.0-129.0 Triglycerides 283.0 mg/dL High 30.0-249.0 vLDL 56.6 ng/dL Laboratory test finding 05/28/2013 % A1c 5.9 % 4.1-6.5 % Baso. 2.9 % High 0.0-2.0 % Eos. 5.8 % High 0.0-4.0 % Lymph 34 % 20-44 % [place] 8.1 % 2.0-10.0 % Js 50 % 50-70 Absolute Baso. 0.1 K/ul 0.0-0.3 Absolute Eos. 0.2 K/ul 0.0-0.5 Absolute Lymph. 1.2 K/ul 0.8-4.[address] [place]. 0.3 K/ul 0.1-1.0 Absolute Js. 1.78 K/ul Low 2.05-7.63 Alt 17.0 U/L 9.0-52.0 Ast 15.0 U/L 14.0-36.0 BUN 10.0 mg/dL 7.0-18.0 BUN/Creat Ratio 12.5 ratio 12.0-20.0 Calcium 9.8 mg/dL 8.7-10.5 Chloride 99.0 mmol/L 98.0-107.0 Co2 27.0 mmol/L 22.0-30.0 Creatinine-Serum 0.8 mg/dL 0.7-1.2 Glucose 127.0 mg/dL High 75.0-110.0 HCT 42.7 % 37.0-51.0 HGB 13.9 Gm/dl 12.0-16.0 MCH 29.1 pg 26.0-32.0 MCHC 32.6 g/dL 31.0-36.0 MCV 89.4 Fl 80.0-97.0 MPV 7.5 fL 6.0-10.0 PLT 140 K/ul 140-440 Potasium 3.7 mmol/L 3.6-5.0 RBC 4.8 M/ul 4.2-6.3 RDW 13.2 % 11.5-14.5 Sodium 140.0 mmil/L 137.0-145.0 WBC 3.6 K/ul Low 4.1-10.9 eGFR 77.8 Lipid Panel 05/28/2013 Chol/HDL Ratio 5.7 ratio Cholesterol 267.0 mg/dL High 50.0-199.0 HDL 47.0 mg/dL 29.0-86.0 LDL, Calculated 163.4 mg/dL High 20.0-129.0 Triglycerides 283.0 mg/dL High 30.0-249.0 vLDL 56.6 ng/dL Laboratory test finding 04/21/2013 % Baso. 2.8 % High 0.0-2.0 % Eos. 7.5 % High 0.0-4.0 % Lymph 35 % 20-44 % [place] 9.2 % 2.0-10.0 % Js 46 % Low 50-70 A/G Ratio 1.1 ratio Low 1.6-2.2 Absolute Baso. 0.1 K/ul 0.0-0.3 Absolute Eos. 0.3 K/ul 0.0-0.5 Absolute Lymph. 1.4 K/ul 0.8-4.[address] [place]. 0.4 K/ul 0.1-1.0 Absolute Js. 1.83 K/ul Low 2.05-7.63 Albumin 4.1 g/dL 3.5-5.0 Alk. Phos. 59.0 U/L 30.0-126.0 Alt 23.0 U/L 9.0-52.0 Anion Gap 12.0 mmol/L 10.0-20.0 Ast 21.0 U/L 14.0-36.0 BUN 12.0 mg/dL 7.0-18.0 BUN/Creat Ratio 15.0 ratio 12.0-20.0 Calcium 9.8 mg/dL 8.7-10.5 Chloride 97.0 mmol/L Low 98.0-107.0 Co2 31.0 mmol/L High 22.0-30.0 Creatinine-Serum 0.8 mg/dL 0.7-1.2 Globulin 3.6 g/dL 2.7-4.3 Glucose 129.0 mg/dL High 75.0-110.0 HCT 42.1 % 37.0-51.0 HGB 14.0 Gm/dl 12.0-16.0 MCH 30.5 pg 26.0-32.0 MCHC 33.4 g/dL 31.0-36.0 MCV 91.4 Fl 80.0-97.0 MPV 7.4 fL 6.0-10.0 PLT 135 K/ul Low 140-440 Potasium 3.6 mmol/L 3.6-5.0 RBC 4.6 M/ul 4.2-6.3 RDW 13.3 % 11.5-14.5 Sodium 140.0 mmil/L 137.0-145.0 TSH 0.86 uIU/ml 0.50-6.00 Total Bilirubin 0.5 mg/dL 0.2-1.3 Total Protein 7.7 g/dL 6.3-8.2 WBC 4.0 K/ul Low 4.1-10.9 eGFR 80.8 mi/minper1.73 90 Lipid Panel 04/21/2013 Chol/HDL Ratio 6.2 ratio Cholesterol 318.0 mg/dL High 50.0-199.0 HDL 51.0 mg/dL 29.0-86.0 LDL, Calculated 201.8 mg/dL High 20.0-129.0 Triglycerides 326.0 mg/dL High 30.0-249.0 vLDL 65.2 ng/dL Laboratory test finding 02/12/2013 Colonic Mucosa/Polyp Biopsy See Note 91 Laboratory test finding 12/03/2012 % Baso. 2.0 % 0.0-2.0 % Eos. 5.3 % High 0.0-4.0 % Lymph 29 % 20-44 % [place] 10.1 % High 2.0-10.0 % Js 53 % 50-70 Absolute Baso. 0.1 K/ul 0.0-0.3 Absolute Eos. 0.2 K/ul 0.0-0.5 Absolute Lymph. 1.2 K/ul 0.8-4.[address] [place]. 0.4 K/ul 0.1-1.0 Absolute Js. 2.21 K/ul 2.05-7.63 HCT 37.8 % 37.0-51.0 HGB 13.1 Gm/dl 12.0-16.0 MCH 30.7 pg 26.0-32.0 MCHC 34.6 g/dL 31.0-36.0 MCV 88.6 Fl 80.0-97.0 MPV 6.6 fL 6.0-10.0 PLT 183 K/ul 140-440 RBC 4.3 M/ul 4.2-6.3 RDW 11.8 % 11.5-14.5 WBC 4.1 K/ul 4.1-10.9 Laboratory test finding 11/27/2012 Cryptosporidium Specific Ag See Note 92 Giardia Specific Antigen See Note 93 Smear For WBC'S None Seen Smear Source: Stool Stool Culture 11/27/2012 Shiga Toxin 1 See Note 94 Shiga Toxin 2 See Note 95 Stool Culture See Note 96 Laboratory test finding 11/26/2012 % Baso. 2.4 % High 0.0-2.0 % Eos. 7.2 % High 0.0-4.0 % Lymph 28 % 20-44 % [place] 11.5 % High 2.0-10.0 % Js 50 % 50-70 A/G Ratio 1.1 ratio Low 1.6-2.2 Absolute Baso. 0.1 K/ul 0.0-0.3 Absolute Eos. 0.2 K/ul 0.0-0.5 Absolute Lymph. 0.9 K/ul 0.8-4.[address] [place]. 0.4 K/ul 0.1-1.0 Absolute Js. 1.63 K/ul Low 2.05-7.63 Albumin 3.7 g/dL 3.5-5.0 Alk. Phos. 61.0 U/L 30.0-126.0 Alt 21.0 U/L 9.0-52.0 Anion Gap 13.0 mmol/L 10.0-20.0 Ast 22.0 U/L 14.0-36.0 BUN 9.0 mg/dL 7.0-18.0 BUN/Creat Ratio 12.9 ratio 12.0-20.0 C-Reactive Protein,Quant 19.6 mg/L High 0.0-4.9 Calcium 8.9 mg/dL 8.7-10.5 Chloride 101.0 mmol/L 98.0-107.0 Co2 26.0 mmol/L 22.0-30.0 Creatinine-Serum 0.7 mg/dL 0.7-1.2 Esr Sedrate 35.0 sec High 0.0-25.0 Globulin 3.3 g/dL 2.7-4.3 Glucose 131.0 mg/dL High 75.0-110.0 HCT 38.8 % 37.0-51.0 HGB 13.0 Gm/dl 12.0-16.0 MCH 30.5 pg 26.0-32.0 MCHC 33.6 g/dL 31.0-36.0 MCV 90.7 Fl 80.0-97.0 MPV 7.5 fL 6.0-10.0 PLT 183 K/ul 140-440 Potasium 4.0 mmol/L 3.6-5.0 RBC 4.3 M/ul 4.2-6.3 RDW 12.3 % 11.5-14.5 Rheumatoid Factor Screen Negative Negative Sodium 140.0 mmil/L 137.0-145.0 Total Bilirubin 0.4 mg/dL 0.2-1.3 Total Protein 7.0 g/dL 6.3-8.2 WBC 3.2 K/ul Low 4.1-10.9 eGFR 94.2 mi/minper1.73 97 Antinuclear Abs Ifa 11/26/2012 Antinuclear Antibodies, Ifa See patterns . 98 Homogeneous Pattern 1:160 High . Note See Note 99 Laboratory test finding 10/14/2012 % Baso. 2.7 % High 0.0-2.0 % Eos. 6.2 % High 0.0-4.0 % Lymph 44 % 20-44 % [place] 12.1 % High 2.0-10.0 % Js 35 % Low 50-70 Absolute Baso. 0.1 K/ul 0.0-0.3 Absolute Eos. 0.3 K/ul 0.0-0.5 Absolute Lymph. 1.8 K/ul 0.8-4.[address] [place]. 0.5 K/ul 0.1-1.0 Absolute Js. 1.47 K/ul Low 2.05-7.63 BUN 10.0 mg/dL 7.0-18.0 BUN/Creat Ratio 12.5 ratio 12.0-20.0 Calcium 10.0 mg/dL 8.7-10.5 Chloride 97.0 mmol/L Low 98.0-107.0 Co2 29.0 mmol/L 22.0-30.0 Creatinine-Serum 0.8 mg/dL 0.7-1.2 FT4 0.91 ng/dL 0.75-1.54 Glucose 116.0 mg/dL High 75.0-110.0 HCT 41.2 % 37.0-51.0 HGB 13.6 Gm/dl 12.0-16.0 MCH 30.2 pg 26.0-32.0 MCHC 33.1 g/dL 31.0-36.0 MCV 91.4 Fl 80.0-97.0 MPV 7.6 fL 6.0-10.0 PLT 149 K/ul 140-440 Potasium 3.2 mmol/L Low 3.6-5.0 RBC 4.5 M/ul 4.2-6.3 RDW 12.6 % 11.5-14.5 Sodium 140.0 mmil/L 137.0-145.0 TSH 1.14 uIU/ml 0.50-6.00 WBC 4.2 K/ul 4.1-10.9 eGFR 78.0 Hepatic Function Panel LFT 10/14/2012 Albumin 4.2 g/dL 3.5-5.0 Alk. Phos. 55.0 U/L 30.0-126.0 Alt 21.0 U/L 9.0-52.0 Ast 21.0 U/L 14.0-36.0 Total Bilirubin 0.5 mg/dL 0.2-1.3 Total Protein 7.7 g/dL 6.3-8.2 Laboratory test finding 04/14/2012 Anion Gap 16 mmol/L 10-20 BUN 8 mg/dL 7-18 BUN/CR Ratio 11.2 Ratio Low 12-20 Calcium 9.3 mg/dL 8.7-10.5 Carbon Dioxide 31 mmol/L High 22-30 Chloride 99 mmol/L 98-107 Creatinine, Serum 0.7 mg/dL 0.7-1.2 Glucose 86 mg/dL 65-105 Hemoglobin A1c 5.4 % 4.1-6.5 Potassium 3.5 mmol/L Low 3.6-5.0 Sodium 142 mmol/L 137-145 Laboratory test finding 10/15/2011 Anion Gap 16 mmol/L 10-20 BUN 37 mg/dL High 7-18 BUN/CR Ratio 29.5 Ratio High 12-20 Calcium 9.8 mg/dL 8.7-10.5 Carbon Dioxide 32 mmol/L High 22-30 Chloride 93 mmol/L Low 98-107 Creatinine, Serum 1.2 mg/dL 0.7-1.2 Glucose 98 mg/dL 65-105 Hemoglobin A1c 6.0 % 4.1-6.5 Potassium 3.4 mmol/L Low 3.6-5.0 Sodium 139 mmol/L 137-145 Laboratory test finding 04/15/2011 Glucose 98 mg/dL 65-105 Hemoglobin A1c 6.2 % 4.1-6.5 Laboratory test finding 03/18/2011 Dee Species See Note 100 Culture Urine See Note 101 Gardnerella Vaginalis See Note 102 Trichomonas Vaginalis See Note 103 Dna Probe N. Natheno & C. 03/18/2011 Dna Probe For Chlamydia Trac. See Note 104 Trach. GC Probe See Note 105 Laboratory test finding 11/15/2010 Direct LDL 137 mg/dL High 0-99 106, 107 Anion Gap 20 mmol/L 10-20 106 BUN 8 mg/dL 7-18 106 BUN/CR Ratio 14.7 Ratio 12-20 106 Calcium 9.1 mg/dL 8.7-10.5 106 Carbon Dioxide 30 mmol/L 22-30 106 Chloride 94 mmol/L Low 98-107 106 Creatinine, Serum 0.6 mg/dL Low 0.7-1.2 106 Glucose 129 mg/dL High 65-105 106 Hemoglobin A1c 6.2 % 4.1-6.5 106 Potassium 4.3 mmol/L 3.6-5.0 106 Sodium 139 mmol/L 137-145 106 Lipid Panel 11/15/2010 Chol/HDL Ratio 5.5 106, 108 Cholesterol 243 mg/dL High 50-199 106 HDL Cholesterol 44 mg/dL 29-86 106 LDL Unable to calcul <See Note> mg/dL 106, 109 Triglycerides 425 mg/dL High 30-249 106 VLDL Cholesterol 85 mg/dL 106 Laboratory test finding 11/15/2010 Anion Gap 20 mmol/L 10-20 106 BUN 8 mg/dL 7-18 106 BUN/CR Ratio 14.7 Ratio 12-20 106 Calcium 9.1 mg/dL 8.7-10.5 106 Carbon Dioxide 30 mmol/L 22-30 106 Chloride 94 mmol/L Low 98-107 106 Creatinine, Serum 0.6 mg/dL Low 0.7-1.2 106 Glucose 129 mg/dL High 65-105 106 Hemoglobin A1c 6.2 % 4.1-6.5 106 Potassium 4.3 mmol/L 3.6-5.0 106 Sodium 139 mmol/L 137-145 106 Lipid Panel 11/15/2010 Chol/HDL Ratio 5.5 106, 110 Cholesterol 243 mg/dL High 50-199 106 HDL Cholesterol 44 mg/dL 29-86 106 LDL Unable to calcul <See Note> mg/dL 106, 111 Triglycerides 425 mg/dL High 30-249 106 VLDL Cholesterol 85 mg/dL 106 Laboratory test finding 05/16/2010 Glucose 138 mg/dL High 65-105 112 Hemoglobin A1c 6.1 % 4.1-6.5 112 Lipid Panel 05/16/2010 Chol/HDL Ratio 5.2 112, 113 Cholesterol 258 mg/dL High 50-199 112 HDL Cholesterol 49 mg/dL 29-86 112 LDL 140 mg/dL High 20-129 112 Triglycerides 347 mg/dL High 30-249 112 VLDL Cholesterol 69 mg/dL 112 Laboratory test finding 02/08/2010 Cytology Pap See Note 114 Laboratory test finding 11/02/2009 Anion Gap 13 mmol/L 10-20 115 BUN 9 mg/dL 7-18 115 BUN/CR Ratio 12.5 Ratio 12-20 115 Bas% 2.0 % High 0.0-1.1 115 Baso # 0.1 K/uL 0.0-0.1 115 Calcium 9.0 mg/dL 8.7-10.5 115 Carbon Dioxide 30 mmol/L 22-30 115 Chloride 100 mmol/L 98-107 115 Creatinine, Serum 0.7 mg/dL 0.7-1.2 115 Eo% 7.9 % High 0.0-6.6 115 Eos # 0.3 K/uL 0.0-0.5 115 Free T4 0.61 ng/dL Low 0.75-1.54 115 Glucose 150 mg/dL High 65-105 115 Hematocrit 38.5 % 36.0-46.1 115 Hemoglobin 13.1 gm/dL 11.6-15.8 115 Lymph # 1.6 K/uL 0.8-3.4 115 Lymph % 45.9 % 17.0-46.1 115 Mean Cell Volume 89.7 fl 80.9-99.0 115 Mean Corpuscular HGB 30.5 pg 25.9-32.7 115 Mean Corpuscular HGB Conc 34.0 g/dL 30.8-34.3 115 Mean Platelet Volume 10.6 fL 8.9-12.[address] [place] # 0.4 K/uL 0.3-0.[address] [place] % 12.2 % 4.3-13.2 115 Neut# 1.1 K/uL 1.0-7.0 115 Neut% 32.0 % Low 40.4-72.8 115 Platelet Count 151 K/uL Low 155-360 115 Potassium 3.5 mmol/L Low 3.6-5.0 115 Red Blood Count 4.29 M/uL 3.90-5.40 115 Red Cell Distri Width %CV 13.6 % 11.7-14.4 115 Red Cell Distri Width SD 43 fl 3-47 115 Sodium 139 mmol/L 137-145 115 TSH 0.927 uIU/ml 0.50-6.00 115 Vitamin B12 428 pg/mL 208-964 115, 116 White Blood Count 3.5 K/uL 3.1-10.7 115 Laboratory test 04/05/2009 Culture Urine <see comment> 117 finding Laboratory test 01/30/2009 Culture Urine No Growth: Final 118 finding <See Note> Laboratory test 10/14/2008 Absolute Basophils 0.093 K/ul 0.0-0.3 finding Absolute Eosinophils 0.208 K/ul 0.0-0.5 Absolute Lymphocytes 1.60 K/ul 0.8-4.8 Absolute Monocytes 0.467 K/ul 0.1-1.0 Absolute Neutrophils 1.81 K/ul Low 2.05-7.63 Anion Gap 16 mmol/L 10-20 BUN 19 mg/dL High 7-18 BUN/CR Ratio 17.3 Ratio 12-20 Basophil 2.2 % High 0-2 Calcium 10.3 mg/dL 8.7-10.5 Carbon Dioxide 31 mmol/L High 22-30 Chloride 95 mmol/L Low 98-107 Creatinine, Serum 1.1 mg/dL 0.7-1.2 Eosinophil 5.0 % High 0-4 Glucose 120 mg/dL High 65-105 Hematocrit 39.9 % 37.0-51.0 Hemoglobin 12.9 GM/dl 12.0-16.0 Lymphocytes 38.4 % 20-44 MCH 29.4 pg 26.0-32.0 MCHC 32.4 g/dL 31.0-36.0 MCV 91 FL 80-97 Monocytes 11.2 % High 2-10.0 Neutrophils 43.3 % Low 50-70 Platelet Count 174 K/ul 140-440 Potassium 3.4 mmol/L Low 3.6-5.0 RBC 4.39 M/ul 4.2-6.3 RDW 13.4 % 11.5-14.5 Sodium 139 mmol/L 137-145 TSH 0.877 uIU/ml 0.50-6.00 WBC 4.2 K/ul 4.1-10.9 Hepatic Function 10/14/2008 Albumin 4.3 g/dL 3.5-5.0 Alkaline Phosphatase 61 U/L 30-126 Alt 61 U/L High 9-52 Ast 55 U/L High 14-36 Total Bilirubin 0.4 mg/dL 0.2-1.3 Total Protein 8.0 g/dL 6.3-8.2 Laboratory test finding 06/07/2008 Culture Urine <see comment> 119 Laboratory test finding 02/05/2008 Pathology Exam (See Note) 120 Laboratory test finding 01/20/2008 Cytology Pap See Note 121 Laboratory test finding 09/29/2007 Anion Gap 15 mEq/L 8-16 BUN 12 mg/dL 5-23 BUN/Creat 15.0 Bas% 0.4 % 0.0-1.1 Baso # 0.0 K/uL 0.0-0.1 Calcium 9.3 mg/dL 8.5-10.1 Carbon Dioxide 29 mEq/L 21-32 Chloride 97 mEq/L Low 98-107 Creatinine 0.8 mg/dL 0.5-1.4 Eo% 0.1 % 0.0-6.6 Eos # 0.0 K/uL 0.0-0.5 Glucose 118 mg/dL High 76-115 Hematocrit 41.4 % 36.0-46.1 Hemoglobin 13.8 gm/dL 11.6-15.8 Lymph # 1.2 K/uL 0.8-3.4 Lymph % 11.3 % Low 17.0-46.1 Mean Cell Volume 89.2 fl 80.9-99.0 Mean Corpuscular HGB 29.7 pg 25.9-32.7 Mean Corpuscular HGB Conc 33.3 g/dL 30.8-34.3 Mean Platelet Volume 10.4 fL 8.9-12.4 [place] # 1.2 K/uL High 0.3-0.9 [place] % 11.9 % 4.3-13.2 Neut# 7.7 K/uL High 1.0-7.0 Neut% 76.3 % High 40.4-72.8 Platelet Count 155 K/uL 155-360 Potassium 3.6 mEq/L 3.5-5.1 Red Blood Count 4.64 M/uL 3.90-5.40 Red Cell Distri Width %CV 14.0 % 11.7-14.4 Red Cell Distri Width SD 44 fl 3-47 Sodium 137 mEq/L 136-145 White Blood Count 10.2 K/uL 3.1-10.7 Laboratory test finding 09/15/2007 Absolute Basophils 0.02 K/ul 0.0-0.3 Absolute Eosinophils 0.23 K/ul 0.0-0.5 Absolute Lymphocytes 1.33 K/ul 0.8-4.8 Absolute Monocytes 0.41 K/ul 0.1-1.0 Absolute Neutrophils 1.38 K/ul Low 2.05-7.63 Anion Gap 14 mmol/L 10-20 BUN 16 mg/dL 7-18 BUN/CR Ratio 21.0 Ratio High 12-20 Basophil 0.5 % 0-2 Calcium 8.8 mg/dL 8.7-10.5 Carbon Dioxide 32 mmol/L High 22-30 Chloride 98 mmol/L 98-107 Creatinine, Serum 0.8 mg/dL 0.7-1.2 Eosinophil 6.9 % High 0-4 Esr (Sed Rate/Westergren) 20 SEC 0-25 Glucose 111 mg/dL High 65-105 Hematocrit 37.3 % 37.0-51.0 Hemoglobin 12.9 GM/dl 12.0-16.0 Lymphocytes 39.4 % 20-44 MCH 30.8 pg 26.0-32.0 MCHC 34.5 g/dL 31.0-36.0 MCV 89 FL 80-97 Monocytes 12.1 % High 2-10.0 Neutrophils 41.1 % Low 50-70 Platelet Count 170 K/ul 140-440 Potassium 3.9 mmol/L 3.6-5.0 122 RBC 4.19 M/ul Low 4.2-6.3 RDW 12.3 % 11.5-14.5 Sodium 139 mmol/L 137-145 TSH 1.179 uIU/ml 0.50-6.00 WBC 3.4 K/ul Low 4.1-10.9 Laboratory test finding 01/09/2007 Cytology Pap See Note 123 Laboratory test finding 08/28/2006 Anion Gap 16 mmol/L 10-20 124 BUN 9 mg/dL 7-18 124 BUN/CR Ratio 10.2 Ratio Low 12-20 124 Calcium 9.2 mg/dL 8.7-10.5 124 Carbon Dioxide 29 mmol/L 22-30 124 Chloride 98 mmol/L 98-107 124 Creatinine, Serum 0.9 mg/dL 0.7-1.2 124 Glucose 136 mg/dL High 65-105 124 Potassium 3.8 mmol/L 3.6-5.0 124 Sodium 139 mmol/L 137-145 124 Lipid Panel 07/25/2006 Chol/HDL Ratio 3.8 125 Cholesterol 197 mg/dL 50-199 HDL Cholesterol 51 mg/dL 29-86 LDL 110 mg/dL 20-129 Triglycerides 180 mg/dL 30-249 VLDL Cholesterol 36 mg/dL Laboratory test finding 07/25/2006 Anion Gap 15 mmol/L 10-20 BUN 13 mg/dL 7-18 BUN/CR Ratio 17.7 Ratio 12-20 Bas% 1.5 % High 0.1-1.0 Baso # 0.1 K/uL 0.1-0.2 Calcium 9.4 mg/dL 8.7-10.5 Carbon Dioxide 35 mmol/L High 22-30 Chloride 96 mmol/L Low 98-107 Creatinine, Serum 0.7 mg/dL 0.7-1.2 Eo% 8.2 % High 0.0-5.0 Eos # 0.3 K/uL 0.0-0.5 Glucose 103 mg/dL 65-105 Hematocrit 39.8 % 34.0-46.0 Hemoglobin 13.4 gm/dL 11.5-15.5 Omid# 0.1 0.0-1.5 Omid% 2.8 % 0.0-4.0 Lymph # 1.5 K/uL 1.2-4.0 Lymph % 38.5 % 17.0-56.0 Mean Cell Volume 88.7 fL 80.0-96.0 Mean Corpuscular HGB 29.9 pg 27.0-33.0 Mean Corpuscular HGB Conc 33.7 g/dL 31.7-36.0 Mean Platelet Volume 8.2 fl 6.6-10.6 [place] # 0.3 K/uL 0.0-0.6 [place] % 7.2 % 0.0-10.0 Neut# 1.6 K/uL Low 1.8-7.0 Neut% 41.7 % 33.0-73.0 Platelet Count 193 K/uL 150-400 Potassium 3.6 mmol/L 3.6-5.0 Red Blood Count 4.49 M/uL 3.90-5.20 Red Cell Distri Width %CV 14.5 % 11.6-15.8 Sodium 142 mmol/L 137-145 White Blood Count 3.8 K/uL 3.4-10.5 Hepatic Function 11/13/2005 Albumin 4.3 g/dL 3.5-5.0 Alkaline Phosphatase 78 U/L 38-126 Alt 20 U/L 9-52 Ast 22 U/L 14-36 Total Bilirubin 0.5 mg/dL 0.2-1.3 Total Protein 7.6 g/dL 6.3-8.2 Laboratory test finding 11/13/2005 Absolute Basophils 0.02 K/ul 0.0-0.3 Absolute Eosinophils 0.19 K/ul 0.0-0.5 Absolute Lymphocytes 1.35 K/ul 0.8-4.8 Absolute Monocytes 0.24 K/ul 0.1-1.0 Absolute Neutrophils 1.85 K/ul Low 2.05-7.63 Anion Gap 15 mmol/L 10-20 BUN 17 mg/dL 7-18 BUN/CR Ratio 18.6 Ratio 12-20 Basophil 0.6 % 0-2 Calcium 9.0 mg/dL 8.7-10.5 Carbon Dioxide 26 mmol/L 22-30 Chloride 102 mmol/L 98-107 Creatinine, Serum 0.9 mg/dL 0.7-1.2 Eosinophil 5.3 % High 0-4 Glucose 106 mg/dL High 65-105 Hematocrit 37.8 % 37.0-51.0 Hemoglobin 13.0 GM/dl 12.0-16.0 Lymphocytes 36.9 % 20-44 MCH 29.0 pg 26.0-32.0 MCHC 34.2 g/dL 31.0-36.0 MCV 85 FL 80-97 Monocytes 6.6 % 2-10.0 Neutrophils 50.6 % 50-70 Platelet Count 175 K/ul 140-440 Potassium 4.1 mmol/L 3.6-5.0 RBC 4.47 M/ul 4.2-6.3 RDW 12.9 % 11.5-14.5 Sodium 140 mmol/L 137-145 TSH 1.143 uIU/ml 0.50-6.00 WBC 3.7 K/ul Low 4.1-10.9 Hepatic Function 11/13/2005 Albumin 4.3 g/dL 3.5-5.0 Alkaline Phosphatase 78 U/L 38-126 Alt 20 U/L 9-52 Ast 22 U/L 14-36 Total Bilirubin 0.5 mg/dL 0.2-1.3 Total Protein 7.6 g/dL 6.3-8.2 Laboratory test finding 11/13/2005 Culture Urine No Growth: Final <See Note > 126 Absolute Basophils 0.02 K/ul 0.0-0.3 Absolute Eosinophils 0.19 K/ul 0.0-0.5 Absolute Lymphocytes 1.35 K/ul 0.8-4.8 Absolute Monocytes 0.24 K/ul 0.1-1.0 Absolute Neutrophils 1.85 K/ul Low 2.05-7.63 Anion Gap 15 mmol/L 10-20 BUN 17 mg/dL 7-18 BUN/CR Ratio 18.6 Ratio 12-20 Basophil 0.6 % 0-2 Calcium 9.0 mg/dL 8.7-10.5 Carbon Dioxide 26 mmol/L 22-30 Chloride 102 mmol/L 98-107 Creatinine, Serum 0.9 mg/dL 0.7-1.2 Eosinophil 5.3 % High 0-4 Glucose 106 mg/dL High 65-105 Hematocrit 37.8 % 37.0-51.0 Hemoglobin 13.0 GM/dl 12.0-16.0 Lymphocytes 36.9 % 20-44 MCH 29.0 pg 26.0-32.0 MCHC 34.2 g/dL 31.0-36.0 MCV 85 FL 80-97 Monocytes 6.6 % 2-10.0 Neutrophils 50.6 % 50-70 Platelet Count 175 K/ul 140-440 Potassium 4.1 mmol/L 3.6-5.0 RBC 4.47 M/ul 4.2-6.3 RDW 12.9 % 11.5-14.5 Sodium 140 mmol/L 137-145 TSH 1.143 uIU/ml 0.50-6.00 WBC 3.7 K/ul Low 4.1-10.9 Laboratory test finding 10/31/2005 Culture Urine <see comment> 127 1 PERFORM MANUAL DIFF 2 Updated reference range on new analyzer 3 Updated reference range on new analyzer 4 Concerning GFR Guidelines for Americans: Normal function or mild renal disease, if clinically at risk: >/=60 mL/min Moderately decreased: 30-59 Severely decreased: 15-29 Renal failure: <15 5 Concerning GFR Guidelines: Normal function or mild renal disease, if clinically at risk: >/=60 mL/min Moderately decreased: 30-59 Severely decreased: 15-29 Renal failure: <15 Glomerular Filtration Rate (GFR) is estimated based on the MDRD equation, which assumes a steady state for creatinine as recommended by the National Kidney Disease Education Program in conjunction with the National Institutes of Health and the National Kidney Foundation. Clinical conditions in which it may be necessary to measure GFR by using clearance methods include extremes of age and body size, severe malnutrition or obesity, diseases of skeletal muscle, paraplegia or quadriplegia, vegetarian diet, rapidly changing kidney function, and calculation of the dose of potentially toxic drugs that are excreted by the kidneys. 6 Updated Reference Range 7 Unless otherwise specified, testing performed by [facility] [address] [place] [id number] [phone] Reference range: 3 to 35 INTERPRETIVE INFORMATION: Oxcarbazepine Therapeutic range: 3-35 ug/mL. Toxic: Greater than 40 ug/mL This test measures monohydroxyoxcarbazepine (MHD). Adverse effects may include dizziness, fatigue, nausea, headache, somnolence, ataxia and tremor. Performed by [facility], [address] [place] [id number] [email or web address], Houston Kc MD, Lab. Director Unless otherwise specified, testing performed by [facility] [address] [place] [id number] [phone] Updated reference range on new analyzer 10 Updated reference range on new analyzer 11 Concerning GFR Guidelines: Normal function or mild renal disease, if clinically at risk: >/=60 mL/min Moderately decreased: 30-59 Severely decreased: 15-29 Renal failure: <15 Glomerular Filtration Rate (GFR) is estimated based on the MDRD equation, which assumes a steady state for creatinine as recommended by the National Kidney Disease Education Program in conjunction with the National Institutes of Health and the National Kidney Foundation. Clinical conditions in which it may be necessary to measure GFR by using clearance methods include extremes of age and body size, severe malnutrition or obesity, diseases of skeletal muscle, paraplegia or quadriplegia, vegetarian diet, rapidly changing kidney function, and calculation of the dose of potentially toxic drugs that are excreted by the kidneys. 12 Concerning GFR Guidelines for Americans: Normal function or mild renal disease, if clinically at risk: >/=60 mL/min Moderately decreased: 30-59 Severely decreased: 15-29 Renal failure: <15 13 Updated reference range on new analyzer 14 Per NCEP ATP III Guidelines: Results lower than 40 mg/dL are suggestive of increased risk for coronary artery disease. Results > or=to 60 mg/dL are considered a negative risk factor. 15 Per NCEP ATP III Guidelines: Normal Population <130 Patients with medical conditions: CHD/DM Optimal: <100 Borderline high: 130-159 High: 160-189 Very high: >189 16 Updated reference range on new analyzer 17 Updated reference range on new analyzer 18 Concerning GFR Guidelines: Normal function or mild renal disease, if clinically at risk: >/=60 mL/min Moderately decreased: 30-59 Severely decreased: 15-29 Renal failure: <15 Glomerular Filtration Rate (GFR) is estimated based on the MDRD equation, which assumes a steady state for creatinine as recommended by the National Kidney Disease Education Program in conjunction with the National Institutes of Health and the National Kidney Foundation. Clinical conditions in which it may be necessary to measure GFR by using clearance methods include extremes of age and body size, severe malnutrition or obesity, diseases of skeletal muscle, paraplegia or quadriplegia, vegetarian diet, rapidly changing kidney function, and calculation of the dose of potentially toxic drugs that are excreted by the kidneys. 19 Concerning GFR Guidelines for Americans: Normal function or mild renal disease, if clinically at risk: >/=60 mL/min Moderately decreased: 30-59 Severely decreased: 15-29 Renal failure: <15 20 Updated reference range on new analyzer 21 HEMOGLOBIN A1c INTERPRETATION: 4.0-6.0% GOOD GLYCEMIC CONTROL 6.1-6.5% AT RISK FOR HYPERGLYCEMIA >6.5% DIABETIC/ POOR GLYCEMIC CONTROL REFERENCE: DIABETES CARE 32(7), 2008 IF A1c RESULT IS INCONSISTENT WITH CLINICAL ESTIMATES OF GLYCEMIC CONTROL, AN INTERFERING Hb VARIANT SHOULD BE CONSIDERED. Unless otherwise specified, testing performed by [facility] [address] [place] [id number] [phone] Electrolytes confirmed by repeat. Updated reference range on new analyzer 23 Updated reference range on new analyzer 24 Concerning GFR Guidelines: Normal function or mild renal disease, if clinically at risk: >/=60 mL/min Moderately decreased: 30-59 Severely decreased: 15-29 Renal failure: <15 Glomerular Filtration Rate (GFR) is estimated based on the MDRD equation, which assumes a steady state for creatinine as recommended by the National Kidney Disease Education Program in conjunction with the National Institutes of Health and the National Kidney Foundation. Clinical conditions in which it may be necessary to measure GFR by using clearance methods include extremes of age and body size, severe malnutrition or obesity, diseases of skeletal muscle, paraplegia or quadriplegia, vegetarian diet, rapidly changing kidney function, and calculation of the dose of potentially toxic drugs that are excreted by the kidneys. 25 Concerning GFR Guidelines for Americans: Normal function or mild renal disease, if clinically at risk: >/=60 mL/min Moderately decreased: 30-59 Severely decreased: 15-29 Renal failure: <15 26 Updated reference range on new analyzer 27 RESULT CHECKED 28 Per NCEP ATP III Guidelines: Results lower than 40 mg/dL are suggestive of increased risk for coronary artery disease. Results > or=to 60 mg/dL are considered a negative risk factor. 29 Per NCEP ATP III Guidelines: Normal Population <130 Patients with medical conditions: CHD/DM Optimal: <100 Borderline high: 130-159 High: 160-189 Very high: >189 30 Reference range: 3 to 35 INTERPRETIVE INFORMATION: Oxcarbazepine Therapeutic range: 3-35 ug/mL. Toxic: Greater than 40 ug/mL This test measures monohydroxyoxcarbazepine (MHD). Adverse effects may include dizziness, fatigue, nausea, headache, somnolence, ataxia and tremor. Performed by [facility], [address] [place] [id number] [email or web address], [place] Kc MD, Lab. Director Unless otherwise specified, testing performed by [employer] [facility] [place] [address] 31 Updated reference range on new analyzer 32 Updated reference range on new analyzer 33 Concerning GFR Guidelines: Normal function or mild renal disease, if clinically at risk: >/=60 mL/min Moderately decreased: 30-59 Severely decreased: 15-29 Renal failure: <15 Glomerular Filtration Rate (GFR) is estimated based on the MDRD equation, which assumes a steady state for creatinine as recommended by the National Kidney Disease Education Program in conjunction with the National Institutes of Health and the National Kidney Foundation. Clinical conditions in which it may be necessary to measure GFR by using clearance methods include extremes of age and body size, severe malnutrition or obesity, diseases of skeletal muscle, paraplegia or quadriplegia, vegetarian diet, rapidly changing kidney function, and calculation of the dose of potentially toxic drugs that are excreted by the kidneys. 34 Concerning GFR Guidelines for Americans: Normal function or mild renal disease, if clinically at risk: >/=60 mL/min Moderately decreased: 30-59 Severely decreased: 15-29 Renal failure: <15 35 Updated reference range on new analyzer 36 390 Specimen Slightly Lipemic 37 Per NCEP ATP III Guidelines: Results lower than 40 mg/dL are suggestive of increased risk for coronary artery disease. Results > or=to 60 mg/dL are considered a negative risk factor. 38 Per NCEP ATP III Guidelines: Normal Population <130 Patients with medical conditions: CHD/DM Optimal: <100 Borderline high: 130-159 High: 160-189 Very high: >189 39 [employer] Pending sale [place] [address] CYTOLOGY REPORT Source of Specimen(s): Thin Prep Endocervical Pap Smear - One Vial Date of Last Menstrual Period: 1999 Menstrual History: Post-menopausal Other Clinical Conditions: Last Pap Smear: 2012 normal HPV ASSAY REQUESTED Specimen Adequacy SATISFACTORY FOR EVALUATION ABSENCE OF ENDOCERVICAL/TRANSFORMATION ZONE COMPONENT General Categorization NEGATIVE FOR INTRAEPITHELIAL LESION OR MALIGNANCY Interpretation NEGATIVE FOR INTRAEPITHELIAL LESION OR MALIGNANCY Atrophy Recommendations HPV testing will be performed and a separate report will be issued. 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 Accession Number [id number] Specimen(s) Received A: High Risk HPV Thin Prep Endocervical Pap Smear - One Vial Other Case Numbers: [id number] Diagnosis RISK GROUPS RESULTS High Risk NEGATIVE Tested for HPV Types (16, 18, 31, 33, 35, 39, 45, 51, 52, 56, 58, 59, 66, 68) Reported: 07/03/2016 09:13 Electronically Signed Out By Saloni Montero [email or web address] Sherlyn Segura 41 Concerning GFR Guidelines for Americans: Normal function or mild renal disease, if clinically at risk: >/=60 mL/min Moderately decreased: 30-59 Severely decreased: 15-29 Renal failure: <15 42 Concerning GFR Guidelines: Normal function or mild renal disease, if clinically at risk: >/=60 mL/min Moderately decreased: 30-59 Severely decreased: 15-29 Renal failure: <15 Glomerular Filtration Rate (GFR) is estimated based on the MDRD equation, which assumes a steady state for creatinine as recommended by the National Kidney Disease Education Program in conjunction with the National Institutes of Health and the National Kidney Foundation. Clinical conditions in which it may be necessary to measure GFR by using clearance methods include extremes of age and body size, severe malnutrition or obesity, diseases of skeletal muscle, paraplegia or quadriplegia, vegetarian diet, rapidly changing kidney function, and calculation of the dose of potentially toxic drugs that are excreted by the kidneys. 43 Concerning GFR Guidelines: Normal function or mild renal disease, if clinically at risk: >/=60 mL/min Moderately decreased: 30-59 Severely decreased: 15-29 Renal failure: <15 Glomerular Filtration Rate (GFR) is estimated based on the MDRD equation, which assumes a steady state for creatinine as recommended by the National Kidney Disease Education Program in conjunction with the National Institutes of Health and the National Kidney Foundation. Clinical conditions in which it may be necessary to measure GFR by using clearance methods include extremes of age and body size, severe malnutrition or obesity, diseases of skeletal muscle, paraplegia or quadriplegia, vegetarian diet, rapidly changing kidney function, and calculation of the dose of potentially toxic drugs that are excreted by the kidneys. 44 Concerning GFR Guidelines for Americans: Normal function or mild renal disease, if clinically at risk: >/=60 mL/min Moderately decreased: 30-59 Severely decreased: 15-29 Renal failure: <15 45 Concerning GFR Guidelines: Normal function or mild renal disease, if clinically at risk: >/=60 mL/min Moderately decreased: 30-59 Severely decreased: 15-29 Renal failure: <15 Glomerular Filtration Rate (GFR) is estimated based on the MDRD equation, which assumes a steady state for creatinine as recommended by the National Kidney Disease Education Program in conjunction with the National Institutes of Health and the National Kidney Foundation. Clinical conditions in which it may be necessary to measure GFR by using clearance methods include extremes of age and body size, severe malnutrition or obesity, diseases of skeletal muscle, paraplegia or quadriplegia, vegetarian diet, rapidly changing kidney function, and calculation of the dose of potentially toxic drugs that are excreted by the kidneys. 46 Concerning GFR Guidelines for Americans: Normal function or mild renal disease, if clinically at risk: >/=60 mL/min Moderately decreased: 30-59 Severely decreased: 15-29 Renal failure: <15 47 Per NCEP ATP III Guidelines: Results lower than 40 mg/dL are suggestive of increased risk for coronary artery disease. Results > or=to 60 mg/dL are considered a negative risk factor. 48 Per NCEP ATP III Guidelines: Normal population: <130 Patients with medical conditions: CHD/DM Optimal range: <100 Borderline high: 130-159 High: 160-189 Very high: >189 49 Concerning GFR Guidelines for Americans: Normal function or mild renal disease, if clinically at risk: >/=60 mL/min Moderately decreased: 30-59 Severely decreased: 15-29 Renal failure: <15 50 Concerning GFR Guidelines: Normal function or mild renal disease, if clinically at risk: >/=60 mL/min Moderately decreased: 30-59 Severely decreased: 15-29 Renal failure: <15 Glomerular Filtration Rate (GFR) is estimated based on the MDRD equation, which assumes a steady state for creatinine as recommended by the National Kidney Disease Education Program in conjunction with the National Institutes of Health and the National Kidney Foundation. Clinical conditions in which it may be necessary to measure GFR by using clearance methods include extremes of age and body size, severe malnutrition or obesity, diseases of skeletal muscle, paraplegia or quadriplegia, vegetarian diet, rapidly changing kidney function, and calculation of the dose of potentially toxic drugs that are excreted by the kidneys. 51 Per NCEP ATP III Guidelines: Results lower than 40 mg/dL are suggestive of increased risk for coronary artery disease. Results > or=to 60 mg/dL are considered a negative risk factor. 52 Per NCEP ATP III Guidelines: Normal Population <130 Patients with medical conditions: CHD/DM Optimal: <100 Borderline high: 130-159 High: 160-189 Very high: >189 53 134 Electrolytes confirmed by repeat. 54 Concerning GFR Guidelines for Americans: Normal function or mild renal disease, if clinically at risk: >/=60 mL/min Moderately decreased: 30-59 Severely decreased: 15-29 Renal failure: <15 55 Concerning GFR Guidelines: Normal function or mild renal disease, if clinically at risk: >/=60 mL/min Moderately decreased: 30-59 Severely decreased: 15-29 Renal failure: <15 Glomerular Filtration Rate (GFR) is estimated based on the MDRD equation, which assumes a steady state for creatinine as recommended by the National Kidney Disease Education Program in conjunction with the National Institutes of Health and the National Kidney Foundation. Clinical conditions in which it may be necessary to measure GFR by using clearance methods include extremes of age and body size, severe malnutrition or obesity, diseases of skeletal muscle, paraplegia or quadriplegia, vegetarian diet, rapidly changing kidney function, and calculation of the dose of potentially toxic drugs that are excreted by the kidneys. 56 Microbiology results SOURCE URINE FINAL RESULT No growth 57 Concerning GFR Guidelines: Normal function or mild renal disease, if clinically at risk: >/=60 mL/min Moderately decreased: 30-59 Severely decreased: 15-29 Renal failure: <15 Glomerular Filtration Rate (GFR) is estimated based on the MDRD equation, which assumes a steady state for creatinine as recommended by the National Kidney Disease Education Program in conjunction with the National Institutes of Health and the National Kidney Foundation. Clinical conditions in which it may be necessary to measure GFR by using clearance methods include extremes of age and body size, severe malnutrition or obesity, diseases of skeletal muscle, paraplegia or quadriplegia, vegetarian diet, rapidly changing kidney function, and calculation of the dose of potentially toxic drugs that are excreted by the kidneys. 58 Concerning GFR Guidelines for Americans: Normal function or mild renal disease, if clinically at risk: >/=60 mL/min Moderately decreased: 30-59 Severely decreased: 15-29 Renal failure: <15 59 Per NCEP ATP III Guidelines: Results lower than 40 mg/dL are suggestive of increased risk for coronary artery disease. Results > or=to 60 mg/dL are considered a negative risk factor. 60 Per NCEP ATP III Guidelines: Normal Population <130 Patients with medical conditions: CHD/DM Optimal: <100 Borderline high: 130-159 High: 160-189 Very high: >189 61 Concerning GFR Guidelines: Normal function or mild renal disease, if clinically at risk: >/=60 mL/min Moderately decreased: 30-59 Severely decreased: 15-29 Renal failure: <15 Glomerular Filtration Rate (GFR) is estimated based on the MDRD equation, which assumes a steady state for creatinine as recommended by the National Kidney Disease Education Program in conjunction with the National Institutes of Health and the National Kidney Foundation. Clinical conditions in which it may be necessary to measure GFR by using clearance methods include extremes of age and body size, severe malnutrition or obesity, diseases of skeletal muscle, paraplegia or quadriplegia, vegetarian diet, rapidly changing kidney function, and calculation of the dose of potentially toxic drugs that are excreted by the kidneys. 62 Concerning GFR Guidelines for Americans: Normal function or mild renal disease, if clinically at risk: >/=60 mL/min Moderately decreased: 30-59 Severely decreased: 15-29 Renal failure: <15 63 Concerning GFR Guidelines: Normal function or mild renal disease, if clinically at risk: >/=60 mL/min Moderately decreased: 30-59 Severely decreased: 15-29 Renal failure: <15 Glomerular Filtration Rate (GFR) is estimated based on the MDRD equation, which assumes a steady state for creatinine as recommended by the National Kidney Disease Education Program in conjunction with the National Institutes of Health and the National Kidney Foundation. Clinical conditions in which it may be necessary to measure GFR by using clearance methods include extremes of age and body size, severe malnutrition or obesity, diseases of skeletal muscle, paraplegia or quadriplegia, vegetarian diet, rapidly changing kidney function, and calculation of the dose of potentially toxic drugs that are excreted by the kidneys. 64 Concerning GFR Guidelines for Americans: Normal function or mild renal disease, if clinically at risk: >/=60 mL/min Moderately decreased: 30-59 Severely decreased: 15-29 Renal failure: <15 65 Per NCEP ATP III Guidelines: Results lower than 40 mg/dL are suggestive of increased risk for coronary artery disease. Results > or=to 60 mg/dL are considered a negative risk factor. 66 Per NCEP ATP III Guidelines: Normal Population <130 Patients with medical conditions: CHD/DM Optimal: <100 Borderline high: 130-159 High: 160-189 Very high: >189 67 Detection Limit=1 Performed at: [address] [id number] [employer] Adjuster: Juan Carlos Avilez MD, Phone: [phone] Microbiology results SOURCE URINE FINAL RESULT No growth 69 Unless otherwise specified, testing performed by [facility] [address] [place] [id number] 70 Microbiology results SOURCE URINE FINAL RESULT No growth 71 Concerning GFR Guidelines for Americans: Normal function or mild renal disease, if clinically at risk: >/=60 mL/min Moderately decreased: 30-59 Severely decreased: 15-29 Renal failure: <15 72 Concerning GFR Guidelines: Normal function or mild renal disease, if clinically at risk: >/=60 mL/min Moderately decreased: 30-59 Severely decreased: 15-29 Renal failure: <15 Glomerular Filtration Rate (GFR) is estimated based on the MDRD equation, which assumes a steady state for creatinine as recommended by the National Kidney Disease Education Program in conjunction with the National Institutes of Health and the National Kidney Foundation. Clinical conditions in which it may be necessary to measure GFR by using clearance methods include extremes of age and body size, severe malnutrition or obesity, diseases of skeletal muscle, paraplegia or quadriplegia, vegetarian diet, rapidly changing kidney function, and calculation of the dose of potentially toxic drugs that are excreted by the kidneys. 73 COLONY COUNT ! >100,000 CFU/ml Organism 1 ! PROTEUS MIRABILIS Quantity ! MANY Organism 2 ! URETHRAL BALDO PROTEUS MIRABILIS Target Route Dose M.I.C. RX AB COST ------ ----- -------- ------ -- ------ NITROFURANTOIN 128 R TRIMETHOPRIM/SULFAMETHOXAZOLE <=20 S AMPICILLIN <=2 S CEFAZOLIN <=4 S AMPICILLIN/SULBACTAM <=2 S CIPROFLOXACIN <=0.25 S PIPERACILLIN/TAZOBACTAM <= 4 S CEFTAZIDIME <=1 S CEFTRIAXONE <=1 S CEFEPIME <=1 S LEVOFLOXACIN <=0.12 S GENTAMICIN <=1 S TOBRAMYCIN <=1 S 74 COLONY COUNT ! >100,000 CFU/ml Organism 1 ! PROTEUS MIRABILIS QUANTITY ! MANY Organism 2 ! URETHRAL BALDO PROTEUS MIRABILIS Target Route Dose M.I.C. RX AB COST ------ ----- -------- ------ -- ------ NITROFURANTOIN 256 R TRIMETHOPRIM/SULFAMETHOXAZOLE <=20 S AMPICILLIN <=2 S CEFAZOLIN <=4 S AMPICILLIN/SULBACTAM <=2 S CIPROFLOXACIN <=0.25 S PIPERACILLIN/TAZOBACTAM <= 4 S CEFTAZIDIME <=1 S CEFTRIAXONE <=1 S CEFEPIME <=1 S LEVOFLOXACIN <=0.12 S GENTAMICIN <=1 S TOBRAMYCIN <=1 S 75 02/24/14 [facility] Deleted by [facility] UACOM 76 A1c value between 5.7% and 6.4% is considered at increased risk for diabetes. A1c value greater than 6.5 % is considered essentially diagnostic for Type II diabetes. Current guidelines recommend a treatment goal of <7% for diabetic patients. This method will measure glycosylated hemoglobin variants, HbS, HbG , HbH, HbWayne, HbC, HbE, etc. Other hemoglobin- opathies may give incorrect results with this test. 77 Note: Persistent reduction for 3 months or more in an eGFR <60 mL/min/1.73 m2 defines CKD. Patients with eGFR values >/=60 mL/min/1.73 m2 may also have CKD if evidence of persistent proteinuria is present. The original MDRD equation for estimated GFR is not valid for patients less than 18 years of age. Additional information may be found at www.kdoqi.org. 78 QUERY: Is the Patient Fasting? Y 79 Vitamin D deficiency has been defined by the Helper of Medicine and an Endocrine Society practice guideline as a level of serum 25-OH vitamin D less than 20 ng/mL (1,2). The Endocrine Society went on to further define vitamin D insufficiency as a level between 21 and 29 ng/mL (2). 1. IOM (Helper of Medicine). 2010. Dietary reference intakes for calcium and D. [place]: The National Academies Press. 2. Ismael MF, Helga BIRCH, Braulio MART, et al. Evaluation, treatment, and prevention of vitamin D deficiency: an Endocrine Society clinical practice guideline. JCEM. 2010; 96(7):1911-30. Performed at: - [facility] [address] [id number] [employer] Press Adjuster: Luz Kolb MD, Phone: [phone] 80 Note: Persistent reduction for 3 months or more in an eGFR <60 mL/min/1.73 m2 defines CKD. Patients with eGFR values >/=60 mL/min/1.73 m2 may also have CKD if evidence of persistent proteinuria is present. The original MDRD equation for estimated GFR is not valid for patients less than 18 years of age. Additional information may be found at www.kdoqi.org. 81 NO SPECIMEN OBTAINED 82 NO SPECIMEN OBTAINED 83 COLONY COUNT ! 80,000-100,000 CFU/ml Organism 1 ! MIXED URETHRAL BALDO 84 Detection Limit=1 Performed at: - [facility] [address] [id number] [employer] Adjuster: Juan Carlos Avilez MD, Phone: [phone] 85 For -Belarusian patients multiply result by 1.180 86 Detection Limit=1 Performed at: - [facility] [id number] [employer] Adjuster: Juan Carlos Avilez MD, Phone: [phone] 87 For -[place]arusian patients multiply result by 1.180 88 NO GROWTH: FINAL REPORT 89 Cytology Laboratory [address] [facility], [address] [place] [address] CYTOLOGY REPORT Name: Steve Monique : 1955 (Age: 58) Sex: F Location: [facility] Med. Rec. # [id number] Date Collected: 05/28/2013 Billing #: [id number] Date Received: 05/28/2013 Requisition # [id number] Physician(s): MARICEL LESLIE Source of Specimen: ENDOCERVICAL/ECTOCERVICAL THIN PREP Clinical Information: Date of Last Menstrual Period: None Provided Menstrual History: Post menopausal Specimen Adequacy: SATISFACTORY FOR EVALUATION. ADEQUATE ENDOCERVICAL/TRANSFORMATION ZONE. General Categorization: NEGATIVE FOR INTRAEPITHELIAL LESION OR MALIGNANCY. kfs Electronic Signature WILLIAM Parker (ASCP) Reported: 06/02/2013 [facility] Technical Laboratory [facility] ICD-9 Code(s) V72.31 90 For -[place]ian patients multiply result by 1.180 91 OPERATION/PROCEDURE Colonoscopy with biopsies DIAGNOSIS: "RANDOM COLON BIOPSY": BENIGN, NONDYSPLASTIC AND NONINFLAMED COLONIC MUCOSA. ANNI/mariza GROSS "RANDOM COLON BIOPSIES". The specimen is received in an appropriately labeled container. This contains eight rounded sarabia-red colored pieces of soft tissue measuring up to 0.6 cm.; filtered and submitted in toto within a single cassette. JW/clf MICROSCOPIC Sections reveal mildly edematous fragments of colonic mucosa. There is no significant inflammation. There are no specific features such as granulomas, subepithelial collagen thickening, viral nuclear changes, abnormal eosinophil or lymphocytic infiltrates, vascular changes or pseudomembranes noted. PRE OPERATIVE DIAGNOSIS Rectal bleed, diarrhea REVIEW CODE CODE: I ---- JUAN CARLOS Cruz MD 02/15/13 1307 ---- 92 NEGATIVE FOR CRYPTOSPORIDIUM SPECIFIC ANTIGEN 93 NEGATIVE FOR GIARDIA SPECIFIC ANTIGEN. The specimen will be held for 5 days. Additional testing may be performed upon request if the antigen tests are negative, and the patient is still symptomatic or has traveled to an endemic region. 94 SHIGA TOXIN 1 NOT DETECTED 95 SHIGA TOXIN 2 NOT DETECTED 96 Organism 1 ! NO ENTERIC PATHOGENS ISOLATED . ! ................................................... NOTE: ! INCLUDES TESTING FOR SALMONELLA, SHIGELLA, AEROMONAS, . ! PLESIOMONAS, CAMPYLOBACTER, AND E. COLI 0157:H7 . ! ................................................... . ! YERSINIA AND VIBRIO ARE NOT ROUTINELY SCREENED FOR AND . ! SHOULD BE REQUESTED SEPARATELY SCANT ENTERIC BALDO 97 For -[place]arusian patients multiply result by 1.180 98 Negative <1:80 Borderline 1:80 Positive >1:80 99 A positive KAITLIN result may occur in healthy individuals or be associated with a variety of diseases. See interpre- tation below: Pattern Antigen Detected Suggested Disease Association Homogeneous DNA(ds,ss,), High titers - SLE ( Smooth) Histone Speckled Sm, OUTPATIENT PHARMACY MANAGER, SCL-70, SLE,MCTD,Scleroderma,Sjogrens SS-A/SS-B ---- Nucleolar SCL-70, PM-1/SCL High titers Scleroderma Poly- myositis/Scleroderma Overlap Centromere Centromere PSS w/Crest syndrome variable Performed at: [email or web address] [address] [id number] [employer] Press Adjuster: Luz Kolb MD, Phone: [phone] 100 NEGATIVE FOR DEE SPECIES Testing Performed by: [facility] [place] [address] 101 COLONY COUNT ! 10,000 - 20,000 CFU/ml Organism 1 ! BETA STREPTOCOCCUS GROUP B QUANTITY ! MODERATE RECOMMENDED THERAPY: ! PENICILLIN OR AMPICILLIN. Organism 2 ! URETHRAL BALDO 102 NEGATIVE FOR GARDNERELLA VAGINALIS 103 NEGATIVE FOR TRICHOMONAS VAGINALIS 104 NEGATIVE FOR CHLAMYDIA TRACHOMATIS BY DNA HYBRIDIZATION ASSAY. THIS TEST IS APPROVED FOR OCULAR AND UROGENITAL SITES ONLY. 105 NEGATIVE FOR NEISSERIA GONORRHOEAE BY DNA HYBRIDIZATION ASSAY. THIS METHOD IS APPROVED FOR UROGENITAL SITES ONLY. 106 schedule fasting November 2010 107 Performed at: [email or web address] [address] [id number] [employer] Adjuster: Hussain Araiza MD, Phone: [phone] 108 Normal Range: Male: <4.98 Female: <4.45 109 Unable to calculate LDL due to Triglycerides >400mg/dl 110 Normal Range: Male: <4.98 Female: <4.45 111 Unable to calculate LDL due to Triglycerides >400mg/dl 112 FASTING schedule within 1 week 113 Normal Range: Male: <4.98 Female: <4.45 114 Cytology Laboratory [address] [place] [address], [address] [place] [address] CYTOLOGY REPORT Name: Steve Monique : 1955 (Age: 55) Sex: F Location: [facility] Soc. Sec. #: [id number] Date Collected: 02/08/2010 Billing #: [id number] Date Received: 02/09/2010 Requisition # [id number] Physician(s): MARICEL LESLIE Source of Specimen: ENDOCERVICAL/ECTOCERVICAL THIN PREP Clinical Information: Date of Last Menstrual Period: 1999 Menstrual History: Post menopausal Specimen Adequacy: SATISFACTORY FOR EVALUATION. ADEQUATE ENDOCERVICAL/TRANSFORMATION ZONE. General Categorization: NEGATIVE FOR INTRAEPITHELIAL LESION OR MALIGNANCY. tfn Electronic Signature WILLIAM Dawn (ASCP) Reported: 02/14/2010 [facility] ICD-9 Code(s) V76.2 115 FASTING 116 FASTING QUERY: IS THE PATIENT FASTING? N 117 COLONY COUNT ! >100,000 CFU/ml Organism 1 ! ESCHERICHIA COLI QUANTITY ! MANY ESCHERICHIA COLI Target Route Dose M.I.C. RX AB COST ------ ----- -------- ------ -- ------ NITROFURANTOIN <=16 S TRIMETHOPRIM/SULFAMETHOXAZOLE <=20 S AMPICILLIN <=2 S CEFAZOLIN <=4 S AMPICILLIN/SULBACTAM <=2 S CIPROFLOXACIN <=0.25 S PIPERACILLIN/TAZOBACTAM <=4 S CEFTAZIDIME <=1 S CEFTRIAXONE <=1 S CEFEPIME <=1 S LEVOFLOXACIN <=0.12 S IMIPENEM <=1 S GENTAMICIN <=1 S TOBRAMYCIN <=1 S CEFOXITIN <=4 S 118 NO GROWTH: FINAL REPORT 119 COLONY COUNT ! >100,000 CFU/ml Organism 1 ! ESCHERICHIA COLI QUANTITY ! MANY ESCHERICHIA COLI Target Route Dose M.I.C. RX AB COST ------ ----- -------- ------ -- ------ NITROFURANTOIN <=16 S TRIMETHOPRIM/SULFAMETHOXAZOLE <=20 S AMPICILLIN <=2 S CEFAZOLIN <=4 S AMPICILLIN/SULBACTAM <=2 S CIPROFLOXACIN <=0.25 S PIPERACILLIN/TAZOBACTAM <=4 S CEFTAZIDIME <=1 S CEFTRIAXONE <=1 S CEFEPIME <=1 S LEVOFLOXACIN <=0.25 S IMIPENEM <=1 S GENTAMICIN <=1 S TOBRAMYCIN <=1 S 120 OPERATION/PROCEDURE Colon. with biopsies DIAGNOSIS: RANDOM COLON BIOPSIES : BENIGN, NONDYSPLASTIC AND NONINFLAMED COLONIC MUCOSA. WYS/yoanna 1332 GROSS RANDOM COLON BIOPSIES . The specimen is received in an appropriately labeled container. This contains three rounded yellow sarabia colored pieces of soft tissue measuring up to 0.6 cm.; further sectioned and submitted in toto within a single cassette. WS/yoanna MICROSCOPIC Sections reveal mildly edematous fragments of colonic mucosa. There is no significant inflammation. There are no specific features such as granulomas, subepithelial collagen thickening, viral nuclear changes, abnormal eosinophil or lymphocytic infiltrates, vascular changes or pseudomembranes noted. PRE OPERATIVE DIAGNOSIS Diarrhea REVIEW CODE CODE: I ---- JUAN CARLOS Crzu MD 02/09/08 ---- 121 Cytology [id number] [facility], [address] [place] [address] CYTOLOGY REPORT Name: Steve Monique Accession # : [id number] : 1955 (Age: 52) Sex: F Location: [facility] Soc. Sec. #: [id number] Date Collected: 01/20/2008 Billing #: [id number] Date Received: 01/20/2008 Physician(s): MARICEL LESLIE Source of Specimen: ENDOCERVICAL/ECTOCERVICAL THIN PREP Clinical Information: Date of Last Menstrual Period: 1999 Menstrual History:Post menopausal Specimen Adequacy: SATISFACTORY FOR EVALUATION. ADEQUATE ENDOCERVICAL/TRANSFORMATION ZONE. General Categorization: NEGATIVE FOR INTRAEPITHELIAL LESION OR MALIGNANCY. tfn Electronic Signature WILLIAM Dawn (ASCP) Reported: 01/26/2008 Also seen by :WILLIAM Bobo (ASCP) [facility] ICD-9 Code(s) V76.2 122 SPECIMEN HEMOLYZED 123 Cytology [id number] [facility], [address] [place] [address] CYTOLOGY REPORT Name: Steve Monique : 1955 (Age: 51) Sex: F Location: [facility] Soc. Sec. #: [id number] Date Collected: 01/09/2007 Billing #: [id number] Date Received: 01/09/2007 Physician(s): MARICEL LESLIE Source of Specimen: ENDOCERVICAL/ECTOCERVICAL THIN PREP Clinical Information: Date of Last Menstrual Period: None Provided Menstrual History:Post menopausal: 05/1999 Specimen Adequacy: SATISFACTORY FOR EVALUATION. ADEQUATE ENDOCERVICAL/TRANSFORMATION ZONE. General Categorization: NEGATIVE FOR INTRAEPITHELIAL LESION OR MALIGNANCY. kfs Electronic Signature WILLIAM Parker (ASCP) Reported: 01/15/2007 [facility] ICD-9 Code(s) V76.2 124 patient to call for labs in next 1-2 weeks 125 Normal Range: Male: <4.98 Female: <4.45 126 NO GROWTH: FINAL REPORT 127 COLONY COUNT ! >100,000 CFU/ml Organism 1 ! KLEBSIELLA PNEUMONIAE QUANTITY ! MANY KLEBSIELLA PNEUMONIAE Target Route Dose M.I.C. RX AB COST ------ ----- ------ ---- -------- ------ -- ------ NITROFURANTOIN BLOOD PO 50 mg <=32 S 0.69 TRIMETHOPRIM/SULFAMETHOXAZOLE BLOOD PO DS <=10 S 0.08 AMPICILLIN BLOOD PO 250 mg >=32 R 0.04 IV 1.0 gm R 1.27 IV 2.0 gm R 1.42 CEFAZOLIN BLOOD IV 500 mg <=8 S 0.90 IV 1.0 gm S 3.28 AMPICILLIN/SULBACTAM BLOOD IV 1.5 gm <=4 S 6.76 IV 3.0 gm S 12.42 CIPROFLOXACIN <=0.5 S PIPERACILLIN/TAZOBACTAM BLOOD IV 3.375 gm <=8 S 12.43 CEFTAZIDIME BLOOD IV 1.0 gm <=8 S 7.18 IM 1.0 gm S 6.40 CEFTRIAXONE BLOOD IV 1.0 gm <=8 S 22.32 IV 2.0 gm S 51.08 LEVOFLOXACIN BLOOD PO 250 mg <=1 S 6.71 PO 500 mg S 7.68 IV 500 mg S 16.21 IMIPENEM BLOOD IV 500 mg <=4 S 24.74 GENTAMICIN BLOOD IV 80 mg <=0.5 S 2.56 TOBRAMYCIN BLOOD IV 80 mg <=0.5 S 1.56 CEFUROXIME <=4 S Procedures Date CPT Code Description Status Comment 10/01/2017 53260 Electrocardiogram Complete Completed 08/26/2017 Mammogram Completed 07/03/2017 82449 Electrocardiogram Complete Completed 12/26/2016 95765 Brief Emotional/Behav Completed Assessment W/ Scoring Doc Per Standard Inst 08/19/2016 50450 X-Ray Foot Complete Completed 08/14/2016 Mammogram Completed Document: 08/14/16 - Digital Mammography Screening 01/01/2016 50480 X-Ray Knee Complete W/Obliques Completed & Tunnel And/Or Standing Views 01/01/2016 72478 X-Ray Knee Complete W/Obliques Completed & Tunnel And/Or Standing Views 01/01/2016 50566 X-Ray Spine Lumbosacral Completed Complete W/Oblique Views 08/14/2015 Mammogram Completed Document: 08/14/15 - Digital Mammography Screening 08/23/2014 05644 Measure Blood Oxygen Level Completed Single Determination 08/23/2014 66405 Electrocardiogram Complete Completed 08/03/2014 84728 Bone Density Study (Dexa) Axial Completed Skeleton (Hips,Pelvis,Spine) 08/03/2014 Mammogram Completed 08/03/2014 Bone Mineral Density Test Completed 08/03/2014 53769 Old Bone Density Study (Dexa) Completed 06/22/2014 07835 Repair Superfic Wound < Completed 2.6CM Scalp/Neck/Axil/Genit/Trunk/Ext r 05/24/2014 88840 Measure Blood Oxygen Level Completed Single Determination 04/22/2013 61707 Mammography Unilateral Completed 02/12/2013 Colonoscopy Completed Document: 02/12/13 - Colonoscopy 02/12/2013 27614 Colonoscopy Flexible Diagnostic Completed 10/08/2012 21362 Electrocardiogram Complete Completed 04/20/2012 70693 Mammography Unilateral Completed 04/16/2012 69084 Mammography Unilateral Completed 04/16/2012 78468 Bone Density Study, Single Completed Photon Absorptiometry 04/15/2011 85251 Mammography Unilateral Completed 02/14/2010 07600 Mammography Unilateral Completed 02/12/2010 45841 Mammography Unilateral Completed 02/08/2010 76599 Mammography Unilateral Completed 02/02/2009 22447 Mammography Unilateral Completed 02/05/2008 41411 Colonoscopy Flexible Diagnostic Completed 01/25/2008 41883 Bone Density Study, Single Completed Photon Absorptiometry 01/25/2008 70638 Mammography Unilateral Completed Encounters Type Date Location Provider CPT E/M Dx Office Visit 10/01/2017 1:30[place] [address] Z01.810 M17.0 G40.909 E11.9 I10 F41.9 M54.5 R60.9 E87.1 E78.2 R44.3 G47.30 J32.9 S61.203D Z68.39 Office Visit 07/03/2017 1:15[place] [address] Z01.810 G40.909 E11.9 I10 F41.9 M54.5 E87.1 E78.2 R44.3 R60.9 G47.30 J32.9 R35.0 M79.606 M17.0 Office Visit 03/31/2017 2:[place] [address] G40.909 E11.9 I10 F41.9 M54.5 E87.1 E78.2 E66.01 R44.3 R60.9 G47.30 J32.9 R35.0 M79.606 L60.0 M17.0 Office Visit 12/26/2016 11:15[place] [address] Z00.01 E11.9 G40.909 I10 F41.9 M54.5 E78.2 M25.569 E66.01 R44.3 R60.9 G47.30 J32.9 R35.0 M79.606 Office Visit 09/25/2016 11:15[place] [address] E11.9 G40.909 F41.9 M54.5 I10 M25.569 E78.2 E66.01 R44.3 R60.9 G47.30 J32.9 Office Visit 08/19/2016 11:30[place] [address] M79.672 Office Visit 06/28/2016 10:00[place] [address] Z01.419 Office Visit 05/15/2016 9:00[place] [address] E11.9 G40.909 F41.9 I10 M25.569 M54.5 E87.1 E78.2 E66.01 R44.3 R60.9 G47.30 Office Visit 03/21/2016 10:00[place] [address] E11.9 E78.2 G40.909 F41.9 M25.569 M54.5 E66.01 R44.3 R60.9 G47.30 E87.1 J01.90 Office Visit 12/29/2015 3:30p [place] [address] M25.569 M54.5 G40.909 F41.9 I10 E11.9 E66.01 R44.3 R60.9 E78.2 G47.30 Office Visit 11/23/2015 11:15a [place] [address] M54.5 Office Visit 08/25/2015 9:00[place] [address] E11.9 F41.9 I10 E66.01 G40.909 R44.3 R60.9 E78.2 G47.30 L03.011 Office Visit 06/26/2015 10:30a [facility] [place] [address] Z00.00 Z12.31 Office Visit 04/12/2015 10:15[place] [address] R35.0 E11.9 E66.09 G40.909 I10 F41.9 F32.9 R44.3 R60.9 E78.2 K02.9 Office Visit 03/30/2015 10:00[place] [address] J06.9 H61.21 E66.09 G40.909 R73.01 I10 Office Visit 03/03/2015 1:15[place] [address] R53.83 F41.9 F32.9 G40.909 I10 R44.3 R60.9 E66.09 E78.2 R73.01 R25.1 Office Visit 01/04/2015 10:30[place] [address] 300.00 311 345.90 401.1 780.1 782.3 278.00 272.2 729.5 790.21 Office Visit 12/26/2014 4:00[place] [address] 788.41 Office Visit 10/05/2014 11:15[place] [address] 780.1 300.00 345.90 311 782.3 278.00 401.1 272.2 729.5 Office Visit 08/23/2014 1:30p [facility] [place] [address] 788.39 786.05 278.00 Office Visit 07/27/2014 10:15a [place] [address] 780.1 300.00 345.90 311 782.3 278.00 401.1 272.2 788.1 700 Office Visit 06/23/2014 10:30a [facility] [place] [address] V72.31 V76.12 733.90 Office Visit 06/22/2014 10:15a [place] [address] 780.1 300.00 345.90 311 782.3 278.00 401.1 272.2 473.9 883.0 Office Visit 06/01/2014 2:45p [place] [address] 780.1 300.00 345.90 311 782.3 278.00 401.1 272.2 Office Visit 05/24/2014 2:30p [place] [address] 461.9 Plan of Care Future Appointment(s):01/01/2018 10:00 am - [facility]2017 - Lindsay Melgar NPZ01.419 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 Mammogram due 08/2018.Pap only needed if having RN RESEARCH symptoms or vaginal bleedingFollow up:As scheduled with Dr. Shipman68.41 Body mass index (BMI) 40.0-44.9, adultComments:Encouraged continued attempt to increase exercise.Encouraged healthy well balanced diet with portioncontrol. Plenty of water daily.
[2017-11-09 14:54] VITALS: BP 116/73
--- NOTE | 2017-11-09 15:14 | UC ---
Complaint Female HPI - HPI Summary HPI Summary: urinary frequency urgency and incontinence for the past 3 days, knee replacement 10/20/17 has had intermittent urinary catheterizations postoperatively - History Of Current Complaint Chief Complaint: UCGU Stated Complaint: UTI SYMPTOMS Time Seen by Provider: 11/09/17 14:56 Hx Obtained From: Patient ?: No Onset/Duration: Sudden Onset, Lasting Days - 3, Still Present Timing: Constant Pain Intensity: 0 Character: Burning Aggravating Factor(s): Urination - Allergies/Home Medications Allergies/Adverse Reactions: Allergies Allergy/AdvReac Type Severity Reaction Status Date / Time latex Allergy Rash Verified 11/09/17 14:58 ENVIRONMENTAL Allergy Congestion Uncoded 11/09/17 14:58 TAPE Allergy Rash Uncoded 11/09/17 14:58 PMH/Surg Hx/FS Hx/Imm Hx Previously Healthy: No Cardiovascular History: Hypertension Neurological History: Seizures Psychological History: Anxiety - Surgical History Surgical History: Yes Surgery Procedure, Year, and Place: ORAL SURGERY; right knee 10/20/17 [facility]. TONSILS;. VNS SYSTEM PLACED AND BATTERY REPLACED (SEE OP REPORTS). *(VNS SYSTEM - OKAY TO SCAN WITH VNS PER DR. JONES. MUST USE OLD HEAD COIL (T/R COIL ONLY) MUST SCAN IN NORMAL MODE, SAFE AT ALL SITES. DR. LUX NEEDS TO TURN DEVICE OFF FOR TEST AND WILL BE AT HOSPITAL NEXT WEEK (WEEK OF 17) SCHEDULE PT AT HOSPITAL AT THAT TIME. BE SURE TO LET KING AT DR. LUX OFFICE.)* - Family History Known Family History: Positive: Cardiac Disease, Hypertension, Diabetes - Social History Occupation: Retired Lives: Alone Alcohol Use: None Substance Use Type: None Smoking Status (MU): Never Smoked Tobacco Have You Smoked in the Last Year: No - Immunization History Most Recent Influenza Vaccination: believes that she received it this past season Most Recent Tetanus Shot: unknown Most Recent Pneumonia Vaccination: Pt doesn't believe that she received one Review of Systems Constitutional: Negative Skin: Negative Eyes: Negative ENT: Negative Respiratory: Negative Cardiovascular: Negative Gastrointestinal: Negative Genitourinary: Frequency, Urgency, Other - Recent bladder catheterization Motor: Negative Neurovascular: Negative Musculoskeletal: Negative Neurological: Negative Psychological: Negative Is Patient Immunocompromised?: No All Other Systems Reviewed And Are Negative: Yes Physical Exam Triage Information Reviewed: Yes Appearance: Well-Appearing, No Pain Distress, Well-Nourished Vital Signs: Initial Vital Signs Temp 97.8 F 11/09/17 14:44 Pulse 113 11/09/17 14:44 Resp 16 11/09/17 14:44 BP 116/73 11/09/17 14:44 Pulse Ox 97 11/09/17 14:44 Vital Signs Reviewed: Yes Eye Exam: Normal Eyes: Positive: Conjunctiva Clear ENT Exam: Normal ENT: Positive: Normal ENT inspection, Hearing grossly normal. Negative: Trismus , Muffled voice, Hoarse voice Dental Exam: Normal Neck exam: Normal Neck: Positive: Supple, Nontender, No Lymphadenopathy Respiratory Exam: Normal Respiratory: Positive: Chest non-tender, No respiratory distress, No accessory muscle use Cardiovascular Exam: Normal Cardiovascular: Positive: RRR, No Murmur, Pulses Normal, Brisk Capillary Refill Abdominal Exam: Normal Abdomen Description: Positive: Nontender, No Organomegaly, Soft. Negative: CVA Tenderness (R), CVA Tenderness (L) Bowel Sounds: Positive: Present Musculoskeletal Exam: Normal Musculoskeletal: Positive: Strength Intact, ROM Intact, No Edema Neurological Exam: Normal Neurological: Positive: Alert, Muscle Tone Normal Psychological Exam: Normal Skin Exam: Normal Diagnostics - Laboratory Diagnostic Studies Completed/Ordered: UA---WNL Complaint Female Dx - Course Course Of Treatment: Ditropan bid for bladder spasms, keagal exercises follow with Dr. Flanagan this week - Differential Dx/Diagnosis Provider Diagnoses: Urinary incontinence, bladder spasm Discharge - Sign-Out/Discharge Documenting (check all that apply): Discharge/Admit/Transfer - Discharge Plan Condition: Stable Disposition: HOME Prescriptions: Oxybutynin TAB* [Ditropan TAB*] 5 mg PO BID #14 tab Patient Education Materials: Urinary Incontinence (ED), Kegel Exercises for Women (DC) Referrals: Wood Flanagan DO [Primary Care Provider] - 2 Days - Billing Disposition and Condition Condition: STABLE Disposition: Home
== END 2017-11-09 15:51 | disposition home or self-care (01) ==
LOC: UCCORT 14:23
DX: R32 Unspecified urinary incontinence (principal); N32.89 Other specified disorders of bladder; I10 Essential (primary) hypertension
CPT/HCPCS: 81003; 87077; 87086; 87186; 99212; G0463